=== PATIENT | female | born 1940 | race Caucasian/White ===

== ENCOUNTER 2019-10-16 08:50 | Outpatient (CLI) | payer MEDICARE, SELFPAY ==
[2019-10-16 09:22] LABS: Hemoglobin 13.4 g/dL (12.0-15.0); Mean Corpuscular HGB Conc 31.9 g/dl (32-36); Mean Corpuscular Hemoglobin 27.6 pg (26-34); Mean Corpuscular Volume 86.6 fl (80-100); Mean Platelet Volume 10.7 fl (7.4-10.4); Platelet Count Result 185 k/mm3 (150-375); Red Blood Count 4.85 M/mm3 (4.2-5.4); Red Cell Distribution Width 13.1 % (11.5-14.5); White Blood Count 6.2 K/mm3 (4.5-10.0)
[2019-10-16 09:27] LABS: Hemoglobin A1C 6.2 % (<5.7)
[2019-10-16 09:31] LABS: Alanine Aminotransferase 18 U/L (4-35); Albumin Level 4.3 g/dL (3.5-5.1); Alkaline Phosphatase 70 U/L (38-126); Anion Gap 10.6 mmol/L (7-16); Aspartate Amino Transferase 21 U/L (14-36); Bilirubin,Total 0.5 mg/dL (0.2-1.3); Blood Urea Nitrogen 18 mg/dL (7-17); Calcium 9.3 mg/dL (8.4-10.2); Carbon Dioxide 30 mmol/L (22-30); Chloride 100 mmol/L (98-107); Cholesterol 149 mg/dL (0-200); Estimated Glomerular Filt Rate > 60; Glucose 137 mg/dL (65-105); HDL Direct 48 mg/dL; Potassium 4.6 mmol/L (3.4-5.0); Sodium 136 mmol/L (137-145); Triglycerides 167 mg/dL (<150)
[2019-10-16 09:36] LABS: Add Urine Microscopic? YES; Appearance Urine Clear (Clear); Bacteria Urine Trace /hpf; Bilirubin Urine Negative (Negative); Blood Urine Negative (Negative); Color Urine Yellow (Yellow); Glucose Urine UA Negative (Negative); Ketones Urine Negative (Negative); Leukocyte Esterase Ur 2+ LEU/UL (NEGATIVE); Nitrate Urine Negative (Negative); Protein Urine Negative (Negative); RBC Urine 0-2 /hpf (0-2); Specific Grav Ur 1.013 (1.001-1.035); Squamous Epithelial Cell Urine Rare /hpf (Few); Urobilinogen Urine Negative mg/dL (<2.0); WBC Urine 21-30 /hpf (0-3)
[2019-10-16 09:42] LABS: LDL Cholesterol Direct 74 mg/dL
[2019-10-16 09:59] LABS: Thyroid Stimulating Hormone 0.158 uIU/mL (0.465-4.680)
[2019-10-16 10:01] LABS: Creatinine Urine 67.3 mg/dL
[2019-10-16 10:09] LABS: MALB Creatinine Ratio < 8.9 mg/g (0-30); Microalbumin Urine Random < 6.0 mg/L (0-16.7)
== END 2019-10-16 08:51 | disposition home or self-care (01) ==
PROVIDERS: PCP Family Medicine; Visit Provider Family Medicine
DX: E11.9 Type 2 diabetes mellitus without complications (principal); E78.2 Mixed hyperlipidemia; E03.9 Hypothyroidism, unspecified; I10 Essential (primary) hypertension
CPT/HCPCS: 36415; 80053; 80061; 81001; 82043; 83036; 84443; 85027

== ENCOUNTER 2019-10-25 10:47 | Outpatient (CLI) | payer MEDICARE, SELFPAY ==
--- NOTE | ~2019-10-25 | MM_ITS ---
EXAMINATION: MM screening vic BI w deb HISTORY: Screening TECHNIQUE: Craniocaudal and mediolateral oblique 3-D tomosynthesis images were obtained and synthetic 2-D images were generated. CAD analysis was submitted and interpreted. COMPARISON: Comparison to multiple prior studies sequentially, with oldest reviewed study dated 01/13. BREAST PARENCHYMAL COMPOSITION: There are scattered areas of fibroglandular density. FINDINGS: There is no evidence of suspicious mass, calcification, or architectural distortion to sugg est malignancy in either breast. There has been no suspicious interval change. IMPRESSION: 1. No mammographic evidence of malignancy. 2. Recommend routine screening mammography in one year. BI-RADS Category 1: Negative Reviewed, dictated and finalized at location A.
== END 2019-10-25 10:48 | disposition home or self-care (01) ==
LOC: ANHIMG 10:53
PROVIDERS: PCP Family Medicine; Visit Provider Family Medicine
DX: Z12.31 Encounter for screening mammogram for malignant neoplasm of breast (principal)
CPT/HCPCS: 77063; 77067

== ENCOUNTER 2020-02-23 12:16 | Outpatient (CLI) | payer MEDICARE, SELFPAY ==
[2020-02-23 12:56] LABS: Alanine Aminotransferase 21 U/L (4-35); Albumin Level 4.1 g/dL (3.5-5.1); Alkaline Phosphatase 65 U/L (38-126); Anion Gap 5 mmol/L (8-16); Aspartate Amino Transferase 27 U/L (14-36); Bilirubin,Total 0.6 mg/dL (0.2-1.3); Blood Urea Nitrogen 14 mg/dL (7-17); Calcium 9.3 mg/dL (8.4-10.2); Carbon Dioxide 33 mmol/L (22-30); Chloride 99 mmol/L (98-107); Estimated Glomerular Filt Rate > 60; Glucose 131 mg/dL (65-105); Hemoglobin A1C 6.2 % (<5.7); Potassium 4.3 mmol/L (3.4-5.0); Sodium 137 mmol/L (137-145)
[2020-02-23 13:28] LABS: Thyroid Stimulating Hormone 0.113 uIU/mL (0.465-4.680)
== END 2020-02-23 12:17 | disposition home or self-care (01) ==
PROVIDERS: PCP Family Medicine; Visit Provider Family Medicine
DX: E03.9 Hypothyroidism, unspecified (principal); E11.9 Type 2 diabetes mellitus without complications
CPT/HCPCS: 36415; 80053; 83036; 84443

== ENCOUNTER 2020-07-15 10:22 | Outpatient (CLI) | payer MEDICARE, SELFPAY ==
[2020-07-15 11:25] LABS: Hemoglobin A1C 6.7 % (<5.7)
[2020-07-15 11:27] LABS: Alanine Aminotransferase 17 U/L (4-35); Albumin Level 4.3 g/dL (3.5-5.1); Alkaline Phosphatase 57 U/L (38-126); Anion Gap 5 mmol/L (8-16); Aspartate Amino Transferase 20 U/L (14-36); Bilirubin,Total 0.5 mg/dL (0.2-1.3); Blood Urea Nitrogen 16 mg/dL (7-17); Calcium 9.1 mg/dL (8.4-10.2); Carbon Dioxide 30 mmol/L (22-30); Chloride 104 mmol/L (98-107); Cholesterol 126 mg/dL (0-200); Estimated Glomerular Filt Rate > 60; Glucose 144 mg/dL (65-105); HDL Direct 45 mg/dL; Potassium 4.4 mmol/L (3.4-5.0); Sodium 139 mmol/L (137-145); Triglycerides 82 mg/dL (<150)
[2020-07-15 11:38] LABS: LDL Cholesterol Direct 66 mg/dL
[2020-07-15 11:56] LABS: Thyroid Stimulating Hormone 0.234 uIU/mL (0.465-4.680)
== END 2020-07-15 10:23 | disposition home or self-care (01) ==
LOC: ANHLAB 10:28
PROVIDERS: PCP Family Medicine; Visit Provider Family Medicine
DX: E03.9 Hypothyroidism, unspecified (principal); E78.2 Mixed hyperlipidemia
CPT/HCPCS: 36415; 80053; 80061; 83036; 84443

== ENCOUNTER → 2020-07-19 12:07 | Outpatient (CLI) | payer MEDICARE, SELFPAY ==
--- NOTE | ~2020-07-19 | XR_ITS ---
EXAMINATION: XR knee RT 2V DATE: 07/19/2020 13:34 INDICATION: Right knee pain and weakness TECHNIQUE: Weight bearing anteroposterior and lateral views of the right knee were obtained. COMPARISON: 05/02/2013 FINDINGS: Bone alignment is normal. No fracture. Interval progression of now moderate joint space narrowing in the medial compartment with moderate size marginal osteophytes. Mild to moderate joint space narrowin g in the patellofemoral compartment also with moderate size marginal osteophytes. Small marginal oste ophytes and relatively preserved joint space and the lateral compartment. Soft tissues are unremarkab le. No right knee joint effusion. IMPRESSION: 1. Moderate severity medial compartment predominant tricompartmental osteoarthritis at the right knee . Reviewed, dictated and finalized at location A. IMPRESSION: 1. Moderate severity medial compartment predominant tricompartmental osteoarthr itis at the right knee.
== END ==
PROVIDERS: PCP Family Medicine; Visit Provider Family Medicine
DX: M17.11 Unilateral primary osteoarthritis, right knee (principal)
CPT/HCPCS: 73560

== ENCOUNTER 2020-09-13 10:42 | Outpatient (RCR) | payer MEDICARE, SELFPAY ==
--- NOTE | 2020-09-13 12:03 | PTOPEVAL ---
Thank you for referring Kylah Espana to [facility].? The patient is scheduled to be seen for therapy? ____x/week for ___ weeks. Please review, sign, date and return this plan of care VIN. I agree with and certify that the following plan of care is medically necessary. Referring Physician Date Admitting Provider: Attending Provider: SHARIF Rubio Referring Provider: *PT Outpatient Evaluation Start: 09/13/20 10:50 Freq: Status: Active Protocol: Document 09/13/20 10:50 ACR (Rec: 09/13/20 12:02 ACR [id number]) Therapy Assessment Status Assessment Status Assessment Status Evaluation Evaluation Information Problem Diagnosis R knee OA Subjective Information Patient states that her knee Query Text:As Reported By Patient/ is bothering her. She had Family surgery on it in 2014 where she underwent a menisectomy. She states everything was fine after that, but in the past year her knee feels like it is going to give out on her. Patient states that in the past year she has had one fall . Patient states that stairs, walking/standing for a period of time, getting in and out of her car, and getting out of a chair are difficult for her. She also has to be extremely careful on uneven terrain. The patient has a trip planned in October and is hoping she can make it through the whole thing. Prior Level of Function Activity Level (Last 3 Months) Occupation retired Hand Dominance Right Activity of Daily Living Ability Independent Indoor/Home Mobility Independent Community Mobility Independent Stairs Ability Independent Functional Cognition (Planning, Shopping Independent , Taking Medications) Cooking Yes Cleaning Yes Laundry Yes Shopping Yes Driving Yes Pain Assessment Timing of Pain Assessment Timing of Pain Assessment Assessment Pain Scale Pain Scale Used Numeric (1 - 10) Self Report Pain Assessment Right Knee(s) Reported Pain Level 7 Lowest Pain Intensity 5 Greatest Pain Intensity 7 Pain Score Pain Score
--- NOTE | 2020-10-28 12:51 | PTOPEVAL ---
Thank you for referring Kylah Espana to [facility].? The patient is scheduled to be seen for therapy? ____x/week for ___ weeks. Please review, sign, date and return this plan of care VIN. I agree with and certify that the following plan of care is medically necessary. Referring Physician Date Admitting Provider: Attending Provider: SHARIF Rubio Referring Provider: *PT Outpatient Evaluation Start: 09/13/20 10:50 Freq: Status: Active Protocol: Document 10/28/20 11:11 ACR (Rec: 10/28/20 12:02 ACR [id number]) Therapy Assessment Status Assessment Status Assessment Status Progress Evaluation Information Problem Diagnosis R knee OA Onset 09/11/20 Subjective Information Patient states that she was Query Text:As Reported By Patient/ [place] and Family she had some difficulty because of all the walking. She states that the walking the hills were the worst because her knee was really bothering her. She states that she was careful and took her time walking around. She states that she missed therapy because she wasn't getting the exercise that targets her knee. Pain Assessment Timing of Pain Assessment Timing of Pain Assessment Assessment Pain Scale Pain Scale Used Numeric (1 - 10) Self Report Pain Assessment Right Knee(s) Reported Pain Level 7 Lowest Pain Intensity 5 Greatest Pain Intensity 8 Pain Score Pain Score 7: Self Report Interventions Used Interventions Used By Clinicians Activity or ADL's,Exercise Lower Extremity Range of Motion Knee Range of Motion Right Knee Flexion Range of Motion - Active 117 Knee Extension Range of Motion - Active 3 Query Text: Left Knee Flexion Range of Motion - Active 130 Knee Extension Range of Motion - Active 0 Query Text: Lower Extremity Muscle Strength Testing Knee Strength Right Knee Flexion Strength 5 Normal Knee Extension Strength 4+ Good + Left Knee Flexion Strength 4 Good Knee Extension Strength 4+ Good + Gait Assessment Gait Assessment Additional Ambulation Comments Patient ambulates into the clinic with decreased knee flexion on the R and slight compensated trendelenberg on the R. General Exercise General Exercises Exe
--- NOTE | 2020-11-11 11:53 | PTOPEVAL ---
Thank you for referring Kylah Espana to [facility].? The patient is scheduled to be seen for therapy? ____x/week for ___ weeks. Please review, sign, date and return this plan of care VIN. I agree with and certify that the following plan of care is medically necessary. Referring Physician Date Admitting Provider: Attending Provider: SHARIF Rubio Referring Provider: *PT Outpatient Evaluation Start: 09/13/20 10:50 Freq: Status: Active Protocol: Document 11/11/20 10:55 ACR (Rec: 11/11/20 11:53 ACR [id number]) Therapy Assessment Status Assessment Status Assessment Status Discharge Evaluation Information Problem Diagnosis R knee OA Onset 09/11/20 Subjective Information Patient states that she has Query Text:As Reported By Patient/ been doing great and has no Family complaints. She doesn't have any difficulty with anything these days and believes she is ready to be done. Pain Assessment Timing of Pain Assessment Timing of Pain Assessment Assessment Pain Scale Pain Scale Used Numeric (1 - 10) Self Report Pain Assessment Right Knee(s) Reported Pain Level 4 Greatest Pain Intensity 4 Pain Score Pain Score 4: Self Report Interventions Used Interventions Used By Clinicians Activity or ADL's,Exercise Lower Extremity Range of Motion Knee Range of Motion Right Knee Flexion Range of Motion - Active 125 Knee Extension Range of Motion - Active 3 Query Text: Lower Extremity Muscle Strength Testing Knee Strength Right Knee Flexion Strength 5 Normal Knee Extension Strength 5 Normal Left Knee Flexion Strength 5 Normal Knee Extension Strength 5 Normal Gait Assessment Gait Assessment Additional Ambulation Comments Patient ambulates for 10 minutes with proper heal strike, no antalgia, and slightly reduced hill after 8 minutes. General Exercise General Exercises Exercise Description - reeval x 5 minutes Query Text:Record Sets, Reps, - nustep level 5, 10 minutes Resistance, and Position - heel/toe raises x 30 - standing hip abduction x 30 B green loop - standing hip extension x 30 B green loop - mini squats x 20 - step-ups 8in x20 R fwd - foam balance NBOS 2 minutes - foam tandem 2 minutes
== END 2020-11-11 13:28 | disposition home or self-care (01) ==
LOC: CHSPT 10:42
PROVIDERS: Visit Provider Physician Assistant Surgical
DX: M17.11 Unilateral primary osteoarthritis, right knee (principal)
CPT/HCPCS: 97110; 97161; 97530

== ENCOUNTER 2020-10-28 12:38 | Outpatient (CLI) | payer MEDICARE, SELFPAY ==
[2020-10-28 14:10] LABS: Hematocrit 43.2 % (37.0-47.0); Mean Corpuscular HGB Conc 32.4 g/dl (32-36); Mean Corpuscular Hemoglobin 27.6 pg (26-34); Mean Corpuscular Volume 85.2 fl (80-100); Mean Platelet Volume 10.5 fl (7.4-10.4); Platelet Count Result 196 k/mm3 (150-375); Red Blood Count 5.07 M/mm3 (4.2-5.4); Red Cell Distribution Width 13.2 % (11.5-14.5); White Blood Count 6.6 K/mm3 (4.5-10.0)
[2020-10-28 14:16] LABS: Add Urine Microscopic? YES; Appearance Urine Clear (Clear); Bilirubin Urine Negative (Negative); Blood Urine Negative (Negative); Color Urine Straw (Yellow); Glucose Urine UA Negative (Negative); Ketones Urine Negative (Negative); Leukocyte Esterase Ur 3+ LEU/UL (NEGATIVE); Mucus Urine Rare /lpf; Nitrate Urine Negative (Negative); Protein Urine Negative (Negative); RBC Urine 0-2 /hpf (0-2); Specific Grav Ur 1.006 (1.001-1.035); Squamous Epithelial Cell Urine Rare /hpf (Few); Urobilinogen Urine Negative mg/dL (<2.0)
[2020-10-28 14:22] LABS: Alanine Aminotransferase 27 U/L (4-35); Albumin Level 4.3 g/dL (3.5-5.1); Alkaline Phosphatase 69 U/L (38-126); Anion Gap 4 mmol/L (8-16); Aspartate Amino Transferase 25 U/L (14-36); Bilirubin,Total 0.6 mg/dL (0.2-1.3); Blood Urea Nitrogen 18 mg/dL (7-17); Calcium 8.9 mg/dL (8.4-10.2); Carbon Dioxide 27 mmol/L (22-30); Chloride 102 mmol/L (98-107); Cholesterol 162 mg/dL (0-200); Estimated Glomerular Filt Rate > 60; Glucose 112 mg/dL (65-110); HDL Direct 49 mg/dL; Potassium 3.9 mmol/L (3.4-5.0); Sodium 133 mmol/L (137-145); Triglycerides 156 mg/dL (<150)
[2020-10-28 14:33] LABS: LDL Cholesterol Direct 82 mg/dL
[2020-10-28 16:50] LABS: Creatinine Urine 33.2 mg/dL
[2020-10-28 16:53] LABS: MALB Creatinine Ratio 18.4 mg/g (0-30); Microalbumin Urine Random 6.1 mg/L (0-16.7)
== END 2020-10-28 12:39 | disposition home or self-care (01) ==
PROVIDERS: PCP Family Medicine; Visit Provider Family Medicine
DX: E03.9 Hypothyroidism, unspecified (principal); E11.9 Type 2 diabetes mellitus without complications; E78.2 Mixed hyperlipidemia; I10 Essential (primary) hypertension; M25.561 Pain in right knee
CPT/HCPCS: 36415; 80053; 80061; 81001; 82043; 83036; 84443; 85027

== ENCOUNTER 2021-07-06 18:23 | Emergency (ER) | payer MEDICARE, SELFPAY ==
[2021-07-06 18:25] VITALS: BP 155/77; PULSE 73; RESP 20; TEMP 36.2; O2SAT 97
[2021-07-06] MEDS: methylPREDNISolone SOD SUCC 125 MG VIAL IM (18:41)
[2021-07-06] MEDS: diphenhydrAMINE HCl CAP 25 MG CAPSULE 50 MG PO (18:50)
[2021-07-06 19:03] VITALS: BP 155/77; PULSE 73; RESP 20; TEMP 36.7; O2SAT 97
--- NOTE | 2021-07-06 19:03 | ED.SKABFB ---
HPI - Skin/Abscess/Foreign Bdy General Chief complaint: Skin/Abscess/Foreign Body Stated complaint: all over rash Time Seen by Provider: 07/06/21 18:25 Source: patient and family Mode of arrival: ambulatory Limitations: no limitations History of Present Illness complaint: rash Onset (ago): day(s) (1) Location: generalized Severity: moderate Quality: other (pain-free.) Relieving factors: medication Exacerbating factors: none Associated symptoms: denies other symptoms Treatments prior to arrival: OTC topical medication Related Data Home Medications Medication Instructions Recorded Confirmed aspirin 81 mg tablet,delayed 81 mg PO DAILY 09/11/20 07/06/21 release Allergies Allergy/AdvReac Type Severity Reaction Status Date / Time No Known Allergies Allergy Verified 12/05/20 11:06 Review of Systems Review of Systems: All systems reviewed & are unremarkable except as noted in HPI and below PMFSH Past Medical History Medical History Allergic reaction Anxiety Urticaria Surgical History Surgical History Delivery by section H/O: hysterectomy (~1985) History of appendectomy History of meniscectomy of right knee (~2014) S/P adenoidectomy Family History Family History Mother Family history of cardiovascular disease Father Family history of lung cancer Daughter Cancer Other Carcinoma of colon Social History Social History Smoking status: Never smoker Second hand tobacco smoke exposure: No Alcohol intake: never Substance use: never Substance use type: does not use Gender identity (if verbalized by the patient): Female Sexual Orientation (if Verbalized by the Patient): Straight or Heterosexual Exam Const: General: healthy appearing, no acute distress and alert Orientation/consciousness: patient oriented x3 Limitations: no limitations HENMT: Head: normal to inspection Ears: external ears normal, TM's normal bilaterally and EAC's normal General nose exam: Normal external nose present and Normal nares present Face and sinus: normal facial exam and sinuses nontender Mouth: Yes moist mucous membranes Eyes: Conjunctivae: conjunctivae normal Pupils: Equal, round and reactive pupils present EOM: EOMs intact bilaterally Neck: Neck: normal visual inspection Chest: Chest palpation & inspection: normal inspection of the chest Resp: Effort & Inspection: normal respiratory effort Auscultation: clear to auscultation bilaterally Cardio: Rate: regular rate Rhythm: regular rhythm GI: GI Palp: Yes Soft to palpation and No Tenderness to palpation present (GI) : General: Yes bladder normal to palpation and Yes no CVA tenderness Back/Spine/Pelvis: Back: no CVA tenderness Skin: General skin exam: normal color Other: Generalized urticariae. Neuro: General: patient oriented x3, moves all extremities, no meningeal signs, no focal motor deficits and CN's II-XI intact bilaterally Extrem: General: no pedal edema Psych: Appearance: grossly normal and well kempt Mental Status: mental status grossly normal Affect: normal affect Attitude: cooperative Thought content: Yes Normal thought content present Course Course Emergency Course: Pt was stable in the ED. Urticariae stable. Reevaluation(s) Reevaluation #1: VSS Date: 07/06/21 Time: 18:41 Vital Signs Vital signs: Vital Signs Temperature 36.2 C L 07/06/21 18:25 Pulse Rate 73 07/06/21 18:25 Respiratory Rate 20 07/06/21 18:25 Blood Pressure 155/77 H 07/06/21 18:25 Pulse Oximetry 97 07/06/21 18:25 Temperature 36.7 C 07/06/21 19:03 Pulse Rate 73 07/06/21 19:03 Respiratory Rate 20 07/06/21 19:03 Blood Pressure 155/77 H 07/06/21 19:03 Pulse Oximetry 97 07/06/21 19:03
== END 2021-07-06 19:22 | disposition home or self-care (01) ==
PROVIDERS: Emergency Provider Emergency Medicine; PCP Family Medicine
DX: L50.9 Urticaria, unspecified (principal); T78.40XA Allergy, unspecified, initial encounter
CPT/HCPCS: 73140; 96372; 99283; A9270; J2930

== ENCOUNTER → 2021-08-14 12:23 | Outpatient (CLI) | payer MEDICARE, SELFPAY ==
--- NOTE | ~2021-08-14 | XR_ITS ---
XR knee LT 3V 08/14/2021 12:49 Indication: Left knee pain Procedure: 3 views left knee Comparison: No prior studies for comparison. Findings: There is mild-moderate osteoarthritis of the left knee. No fracture or traumatic malalignme nt. There is anatomic alignment. No significant joint effusion. No foreign bodies. Impression: 1: Mild-moderate osteoarthritis of the left knee. Reviewed, dictated and finalized at location A. Impression: 1: Mild-moderate osteoarthritis of the left knee.
== END ==
PROVIDERS: PCP Family Medicine; Visit Provider Family Medicine
DX: M17.12 Unilateral primary osteoarthritis, left knee (principal)
CPT/HCPCS: 73562

== ENCOUNTER 2021-12-19 12:39 | Outpatient (CLI) | payer MEDICARE, SELFPAY ==
--- NOTE | ~2021-12-19 | CT_ITS ---
EXAMINATION: CT LE LT wo con DATE: 12/19/2021 13:10 INDICATION: Bilateral primary osteoarthritis of the knee. Preoperative evaluation TECHNIQUE: High resolution computed tomography (CT) of the left lower limb from the hip through the a nkle was performed without intravenous contrast. Additional sagittal and coronal reconstructions were performed. Automated exposure control and iterative reconstruction technique were employed. The dose -length product was 1494.56 mGy-cm. COMPARISON: Radiographs dated 10/01/2021 FINDINGS: Normal alignment of the left lower limb. No fracture. Couple small heterotopic ossicles along the lola p deltoid ligament at the ankle consistent with sequela of chronic sprain. Mild to moderate osteoarth ritis at the left hip with anterior and posterior predominant nonuniform joint space narrowing and sm all to moderate-sized marginal osteophytes along the acetabulum and femoral head. Osteoarthritis at t he left knee with and moderate size marginal osteophytes in all 3 compartments and at least moderate joint space narrowing the medial compartment although severity of joint space narrowing can be undere stimated on nonweightbearing imaging. Moderate-sized left knee joint effusion. Additional mild osteoa rthritis at the left ankle, subtalar and talonavicular joints. Moderate-sized Achilles calcaneal spur . The uterus is not identified and has likely been surgically resected. Visualized pelvis otherwise u nremarkable. No pathologically enlarged lymphadenopathy at the left groin are visualized left hemipel vis. IMPRESSION: 1. At least moderate severity medial compartment predominant osteoarthritis at the left knee with mod erate-sized knee joint effusion. 2. Additional polyarticular osteoarthritis, moderate at the left hip and mild at the left ankle and h indfoot. Reviewed, dictated and finalized at location A. IMPRESSION: 1. At least moderate severity medial compartment predominant osteoarthritis at the left knee with moderate-sized knee joint effusion. 2. Additional polyarticular osteoarthritis, moderate at the left hip and mild a t the left ankle and hindfoot.
[2021-12-19 13:31] LABS: Hematocrit 40.2 % (37.0-47.0); Hemoglobin 12.8 g/dL (12.0-15.0)
[2021-12-19 13:40] LABS: Albumin Level 4.2 g/dL (3.5-5.1); Estimated Glomerular Filt Rate > 60; Glucose 132 mg/dL (65-110)
[2021-12-19 14:03] LABS: Hemoglobin A1C 6.9 % (<5.7)
== END 2021-12-19 12:40 | disposition home or self-care (01) ==
PROVIDERS: PCP Family Medicine; Visit Provider Orthopaedic Surgery
DX: E11.9 Type 2 diabetes mellitus without complications (principal); E78.2 Mixed hyperlipidemia; M17.0 Bilateral primary osteoarthritis of knee; M16.12 Unilateral primary osteoarthritis, left hip; M19.072 Primary osteoarthritis, left ankle and foot
CPT/HCPCS: 36415; 73700; 82040; 82565; 82947; 83036; 85014; 85018

== ENCOUNTER 2021-12-26 13:04 | Outpatient (CLI) | payer MEDICARE, SELFPAY ==
--- NOTE | 2021-12-26 13:16 | ECG_ITS ---
Measurements Intervals [place] Rate: 65 P: 54 [place]: 182 QRS: 42 QRSD: 91 T: 45 QT: 383 QTc: 400 Interpretive Statements SINUS RHYTHM NONSPECIFIC T-WAVE FLATTENING BORDERLINE ECG NO PREVIOUS ECG AVAILABLE FOR COMPARISON Electronically Signed On 12-26-2021 15:45:54 CDT by Silas Baca M.D.
== END 2021-12-26 13:05 | disposition home or self-care (01) ==
PROVIDERS: PCP Family Medicine; Visit Provider Orthopaedic Surgery
DX: I10 Essential (primary) hypertension (principal); R94.31 Abnormal electrocardiogram [ECG] [EKG]
CPT/HCPCS: 93005

== ENCOUNTER 2022-02-18 11:38 | Outpatient (CLI) | payer MEDICARE, SELFPAY ==
[2022-02-18 13:18] LABS: Albumin Level 4.6 g/dL (3.5-5.1); Basophils Absolute Auto 0.1 K/mm3 (0.0-0.1); Basophils Percent Auto 0.6 % (0.2-1.2); Eosinophils Absolute Auto 0.5 K/mm3 (0-0.3); Eosinophils Percent Auto 5.1 % (0-4.4); Hematocrit 43.6 % (37.0-47.0); Immature Granulocyte Absolute 0.04 K/mm3 (0.00-0.031); Immature Granulocyte Percent A 0.4 % (0-0.5); Lymphocytes Absolute Auto 3.07 K/mm3 (0.9-3.2); Lymphocytes Percent Auto 29.7 % (18.3-44.2); Mean Corpuscular HGB Conc 32.1 g/dl (32-36); Mean Corpuscular Hemoglobin 27.7 pg (26-34); Mean Corpuscular Volume 86.2 fl (80-100); Mean Platelet Volume 10.4 fl (7.4-10.4); Monocytes Absolute Auto 0.7 K/mm3 (0.1-0.6); Monocytes Percent Auto 6.3 % (2.6-8.5); Neutrophils Percent Auto 57.9 % (45.5-73.1); Platelet Count Result 195 k/mm3 (150-375); Red Blood Count 5.06 M/mm3 (4.2-5.4); Red Cell Distribution Width 12.7 % (11.5-14.5); White Blood Count 10.3 K/mm3 (4.5-10.0)
[2022-02-18 13:21] LABS: Anion Gap 7 mmol/L (8-16); Blood Urea Nitrogen 17 mg/dL (7-17); Calcium 9.1 mg/dL (8.4-10.2); Carbon Dioxide 29 mmol/L (22-30); Chloride 99 mmol/L (98-107); Estimated Glomerular Filt Rate > 60; Glucose 102 mg/dL (65-110); Potassium 4.4 mmol/L (3.4-5.0); Sodium 135 mmol/L (137-145)
[2022-02-18 13:24] LABS: Urine Cotinine NEGATIVE
== END 2022-02-18 11:39 | disposition home or self-care (01) ==
PROVIDERS: Anesthesiology; PCP Family Medicine; Visit Provider Orthopaedic Surgery
DX: M17.12 Unilateral primary osteoarthritis, left knee (principal); E11.9 Type 2 diabetes mellitus without complications; Z01.818 Encounter for other preprocedural examination
CPT/HCPCS: 36415; 80048; 80307; 82040; 85025; 87081

== ENCOUNTER 2022-03-03 10:33 | Outpatient (CLI) | payer MEDICARE, SELFPAY ==
[2022-03-03 11:08] LABS: Alanine Aminotransferase 19 U/L (6-35); Albumin Level 4.5 g/dL (3.5-5.1); Alkaline Phosphatase 58 U/L (38-126); Anion Gap 7 mmol/L (8-16); Aspartate Amino Transferase 20 U/L (14-36); Bilirubin,Total 0.5 mg/dL (0.2-1.3); Blood Urea Nitrogen 14 mg/dL (7-17); Calcium 8.9 mg/dL (8.4-10.2); Carbon Dioxide 29 mmol/L (22-30); Chloride 104 mmol/L (98-107); Estimated Glomerular Filt Rate > 60; Glucose 134 mg/dL (65-110); Potassium 4.5 mmol/L (3.4-5.0); Sodium 140 mmol/L (137-145)
[2022-03-03 11:18] LABS: Hemoglobin A1C 6.8 % (<5.7)
[2022-03-03 11:26] LABS: Basophils Absolute Auto 0.1 K/mm3 (0.0-0.1); Basophils Percent Auto 0.8 % (0.2-1.2); Eosinophils Absolute Auto 0.5 K/mm3 (0-0.3); Eosinophils Percent Auto 6.9 % (0-4.4); Hematocrit 43.6 % (37.0-47.0); Immature Granulocyte Absolute 0.01 K/mm3 (0.00-0.031); Immature Granulocyte Percent A 0.1 % (0-0.5); Lymphocytes Absolute Auto 2.59 K/mm3 (0.9-3.2); Lymphocytes Percent Auto 35.8 % (18.3-44.2); Mean Corpuscular HGB Conc 32.1 g/dl (32-36); Mean Corpuscular Hemoglobin 27.8 pg (26-34); Mean Corpuscular Volume 86.5 fl (80-100); Mean Platelet Volume 11.1 fl (7.4-10.4); Monocytes Absolute Auto 0.4 K/mm3 (0.1-0.6); Monocytes Percent Auto 5.7 % (2.6-8.5); Neutrophils Absolute Auto 3.7 K/mm3 (1.3-6.7); Neutrophils Percent Auto 50.7 % (45.5-73.1); Platelet Count Result 192 k/mm3 (150-375); Red Blood Count 5.04 M/mm3 (4.2-5.4); Red Cell Distribution Width 12.9 % (11.5-14.5); White Blood Count 7.2 K/mm3 (4.5-10.0)
== END 2022-03-03 10:34 | disposition home or self-care (01) ==
PROVIDERS: PCP Family Medicine; Visit Provider Family Medicine
DX: E11.9 Type 2 diabetes mellitus without complications (principal); D72.829 Elevated white blood cell count, unspecified
CPT/HCPCS: 36415; 80053; 83036; 85025

== ENCOUNTER 2022-03-17 08:02 | Day surgery (SDC) | payer MEDICARE, SELFPAY ==
--- NOTE | 2022-02-18 11:14 | PC.NURSE ---
Report to the Outpatient Waiting Room, entrance under the green pavilion located off [facility], at time _8:30AM on date __03/17/22 . Planned Procedure Time: __10:30AM . Time changes happen often and if your time is changed the preop area will call you the afternoon before. - You and your visitor will be asked to self-screen and do not enter if you have any COVID symptoms. - Only one visitor is requested with a max of two and NO children visitors are allowed at this time. - The patient visitor may be requested to leave or wait in car when not with patient due to distancing restrictions. - A mask is optional within the hospital. Patients may have clear liquids (water, carbonated beverages, clear teas, apple juice) until 3 hours prior to surgery with a maximum of 20 ounces. - No food from midnight until time of surgery. Take the following medications with a SIP of water the morning of surgery: ___PAROXETINE Medications to discontinue per physician __HOLD ASPIRIN AND NSAIDS(ALEVE) 7 DAYS PRE-OP, HOLD PER DR RUIZ.- 03/10/22. HOLD ALL VITAMINS/SUPPLEMENTS 3 DAYS PREOP- LAST DOSE -03/13/22 Please no make-up, nail japanese, hairspray, perfume, deodorant, or body powder the day of surgery. No jewelry (including any body piercings) or valuables the day of surgery, leave them at home. Please take a shower or bath the night before, or the morning of, surgery with an antibacterial soap. Wear comfortable, loose fitting clothing. Children are encouraged to wear pajamas. - Jewelry must be removed prior to entering the operating room. Rings and piercings that are not removed may be cut off. - The hospital will not accept responsibility for valuables. - Please leave all valuables, including medications, at home the day of surgery. If you are going home after surgery, a licensed package delivery driver must drive you home. - NO public transportation without another adult if you receive anesthesia. - We recommend that an adult stay with you for 24 hours following discharge. - We also recommend that you do not drive, make important decision, drink alcoholic beverages, or take any drugs that were not prescribed by your health care provider for at least 24 hours after your discharge time. Follow any additional instructions given to you from your surgeon. If you or anyone in your household have experienced Covid symptoms in the past week, please notify your surgeon or the nurse liaison at the phone number below for possible testing. Telephone instructions given to __PATIENT and asked if any additional questions and then verbalized understanding. Patient advised to call surgeon office or pre surgery nurse liaison [phone] if any additional questions.
[2022-02-18 11:54] VITALS: BP 148/86; PULSE 70; RESP 16; TEMP 36.4; O2SAT 98; BMI 29.9
[2022-03-17] VITALS (17 sets, daily range): BP systolic 118–168; BP diastolic 52–95; PULSE 71–90; RESP 13–20; TEMP 36.1–36.8; O2SAT 89–98
--- NOTE | ~2022-03-17 | XR_ITS ---
EXAMINATION: XR knee LT 2V DATE: 03/17/2022 13:07 INDICATION: Total left knee arthroplasty. Postop. TECHNIQUE: 2 views of left knee were obtained. COMPARISON: Left knee radiograph 08/14/2021 FINDINGS: There is a total left knee arthroplasty in near-anatomic alignment. No fracture. There is g as in the knee joint and soft tissues, consistent with recent surgery. IMPRESSION: 1. Total left knee arthroplasty in near-anatomic alignment. Reviewed, dictated and finalized at location A. ITECTURE MANAGER
[2022-03-17] MEDS: ACETAMINOPHEN 500 MG TABLET 1000 MG PO (08:35)
[2022-03-17 08:54] LABS: Glucose Point of Care 134 mg/dl (65-105)
--- NOTE | 2022-03-17 09:04 | WPDANESEPPF ---
Anes - Initial Pre Proc Eval Procedure: Operation Date: 03/17/22 10:30 Proposed Procedures p Left Custom Total Knee Arthroplasty - Albert Martinez MD Date/Time: 03/17/22 09:04 Surgeon: Albert Martinez MD Pre Op Diagnosis: Prim O A Lt Knee Patient Data Age: 81 Gender: F Height: 1.63 m Weight: 79.2 kg Last Vital Signs Temp 36.4 C 02/18/22 11:54 Pulse 70 02/18/22 11:54 Resp 16 02/18/22 11:54 BP 148/86 H 02/18/22 11:54 Pulse Ox 98 02/18/22 11:54 O2 Del Method Room Air 02/18/22 11:54 Allergies Allergy/AdvReac Type Severity Reaction Status Date / Time No Known Allergies Allergy Verified 03/17/22 08:15 Home Medications Medication Instructions Recorded Confirmed Type blood sugar diagnostic (Contour #100 ea 10/27/19 03/02/22 Rx Next Test Strips) lancets #100 ea 06/17/20 03/02/22 Rx aspirin 81 mg tablet,delayed 81 mg PO DAILY 09/11/20 03/17/22 History release biotin 5,000 mcg-lutein 10 mg 1 tablet PO DAILY 02/18/22 03/17/22 History tablet (Biotin Plus) calcium carb-ergocalciferol (vit 1 tablet PO DAILY 02/18/22 03/17/22 History D2) 600 mg calcium-200 unit tablet cholecalciferol (vitamin D3) 125 125 mcg PO DAILY 02/18/22 03/17/22 History mcg (5,000 unit) capsule cyanocobalamin (vitamin B-12) 1,000 mcg PO DAILY 02/18/22 03/17/22 History 1,000 mcg capsule diphenhydramine HCl 25 mg capsule 50 mg PO HS 02/18/22 03/17/22 History (Benadryl) lisinopril 20 mg tablet 20 mg PO QAM 02/18/22 03/17/22 History lutein 20 mg capsule 20 mg PO DAILY 02/18/22 03/17/22 History metformin 500 mg tablet,extended 2,000 mg PO QACDINNER 02/18/22 03/17/22 History release 24 hr multivitamin 1 tablet PO DAILY 02/18/22 03/17/22 History naproxen sodium 220 mg capsule 220 mg PO HS 02/18/22 03/17/22 History (Aleve) paroxetine HCl 30 mg tablet 30 mg PO QAM 02/18/22 03/17/22 History simvastatin 40 mg tablet 40 mg PO QAM 02/18/22 03/17/22 History zinc 10 mg tablet 10 mg PO BID 02/18/22 03/17/22 History Laboratory Tests 03/17/22 08:45 POC Capillary Glucose 134 mg/dl H mg/dl (65-105) ECG: Date of Service: 12/26/21 Procedure(s): CA 12 lead EKG Accession Number(s): [id number] cc: ~ ? Measurements Intervals? [place]? Rate: ? 65 ? P:? 54 ND: ? 182? QRS:? 42 QRSD: ? 91 ? T:? 45 QT: ? 383? QTc:? 400? Interpretive Statements SINUS RHYTHM NONSPECIFIC T-WAVE FLATTENING BORDERLINE ECG NO PREVIOUS ECG AVAILABLE FOR COMPARISON Electronically Signed On 12-26-2021 15:45:54 CDT by Silas Baca M.D. Patient hx anesthesia problems: none Family hx anesthesia problems: none Results Review: All pre-operative results and documents have been reviewed as part of the pre-operative evaluation. [facility] Past Medical History Medical History (Updated 03/17/22 @ 09:05 by Claudio French MD) Allergic reaction Anxiety Essential (primary) hypertension Hypothyroidism MDD (major depressive disorder), recurrent episode Mixed hyperlipidemia Obesity Obstructive sleep apnea (adult) (pediatric) Type 2 diabetes mellitus without complications Urticaria Surgical History Surgical History Delivery by section H/O: hysterectomy (~1985) History of appendectomy History of meniscectomy of right knee (~2014) S/P adenoidectomy Family History Family History Mother Family history of cardiovascular disease Father Family history of lung cancer Daughter Cancer Other Carcinoma of colon Social History Social History Smoking
--- NOTE | 2022-03-17 09:10 | WPDANESPNB ---
Anes - Peripheral Nerve Block Date/Time: 03/17/22 09:10 I have discussed with the patient/family/POA the placement of a peripheral nerve block for post-operative pain management, including associated risks, benefits, complications, and side effects. Alternative methods of post-operative analgesia were detailed. Questions were solicited and answers provided to the satisfaction of the patient/family/POA. Time-Out: A pre-procedural Time-Out was completed immediately before starting the procedure and confirmed: Patient Identification, Site, Procedure, Patient Position and the Availability of Requisite Equipment. Clinical Indications: Acute post-operative pain management requested by the operative surgeon. Nerve Block Insertion Note Anes-nerve block: adductor canal Patient position: supine Skin prep: chlorhexidine Needle: 22 gauge, stimulating, insulated echogenic needle. Needle length: 80 mm Technique: ultrasound Technique comment: in plane Injectate: bupivacaine 0.25% with epi 5 mcg/ml (30cc) Observations: tolerated well Complications: none Procedure start time:: 935 Procedure end time:: 940
--- NOTE | 2022-03-17 09:13 | WPDHPUPDATE1 ---
History and Physical Update Update Date/Time: 03/17/22 09:13 History and Physical has been reviewed, including an updated exam of the patient. There are NO changes in the patient's condition. Risks, benefits, and alternatives have been discussed and questions answered. Patient agrees to proceed with procedure.
[2022-03-17] MEDS: TRANEXAMIC ACID 1,000MG/ISO100 1,000 MG/100 ML BAG 200 MG IVPB (09:28)
[2022-03-17] MEDS: ceFAZolin 2 GM/D5W 50 ML 2 GM/50 ML BAG IVPB ×2 (09:57→18:55)
[2022-03-17] MEDS: GENTAMICIN BONE CEMENT REFOBACIN 1 EACH TOPICAL (12:11)
[2022-03-17] MEDS: LACTATED RINGERS 1,000 ML 30 ML IV CONT (12:58)
[2022-03-17 13:23] LABS: Glucose Point of Care 188 mg/dl (65-105)
[2022-03-17] MEDS: fentaNYL CITRATE INJ (*CRX) 100 MCG/2 ML VIAL 25 MCG IV PUSH (13:23)
--- NOTE | 2022-03-17 13:32 | W.PM.PROC2 ---
Procedure Note - Detailed Date of Procedure 03/17/22 Pre-op Diagnosis Prim O A Lt Knee Post-op Diagnosis Same Procedure Performed Total knee arthroplasty, left. Surgeon Albert Martinez MD Senior Data Warehouse Developer Eulalia Mercado PA-C Anesthesia General and Regional (Subsartorial block.) Findings Good bone quality. Degenerative changes more advanced than noted radiographically. Lateral retinacular release. Description of Procedure Preoperative antibiotics were given. The limb was prepped and draped in the usual sterile fashion with a well-padded tourniquet high on the thigh. The limb was exsanguinated and the tourniquet inflated to 300 mmHg during exposure and cementation. A longitudinal incision was created just medial to the patella. A trivector approach to the knee was performed. Arthrotomy was taken down through the joint capsule. No significant releases were initially taken. The femur was exposed and the F1 jig was applied. The coring tool was used to remove the cartilage for the F2 jig to sit flush with the bone. The jig was pinned and the distal cut carefully taken. Caliper measurements confirmed appropriate bony resections according to the preoperative templated plan. The F4 cutting jig for the femur was applied, at the standard rotation. The AP and anterior chamfer cuts were taken. The F5 jig was applied and the posterior chamfer cuts were taken. The tibia was prepared using the T1 jig, after removing cartilage for the jig contact points. Proper alignment was checked with the alignment adi. The tibia was cut using the T1u guide. Gap balancing was performed. Gap measurements were taken and the knee was trialed. Excellent alignment and soft tissue balancing was confirmed. The posterior cruciate ligament was recessed along the proximal tibia. The patella was cut for resurfacing. Three lug holes were drilled. Meniscal remnants were removed. The trial components were assembled. Excellent range of motion and proper soft tissue balancing were confirmed throughout the full range of motion. Patellar tracking was excellent. The knee was copiously irrigated periodically throughout the procedure. The real implants were cemented into position. Excess cement was carefully removed. The wound was closed in layers with interrupted #1 Vicryl suture, 2-0 strata fix suture, 0 strata fix suture, 2-0 strata fix suture. Steri-Strips placed on the skin with the knee flexed. Sterile bulky dressing applied. The patient was brought to the recovery room in stable condition. There were no complications. Physician assistant surveyor, Eulalia Mercado PA-C, required for surgery; including patient positioning, draping, tissue retraction, maintaining instrument position, wound closure, and dressing placement. Implants Conformis Custom total knee arthroplasty. Cemented. PS insert 8mm insert. 32 mm oval patella. Estimated Blood Loss 100 Drains No Complications No immediate complications Condition Stable Disposition PACU [facility] Billing Surgery - Charge Forward: Surgery Billing
--- NOTE | 2022-03-17 13:50 | SUR.PHASEI ---
Patient meets PACU discharge criteria, unit bed unavailable at this time. Patient placed in extended recovery status.
[2022-03-17] MEDS: oxyCODONE HCL (*CRX) 5 MG TAB IR PO (14:32)
--- NOTE | 2022-03-17 15:33 | SUR.PHASEI ---
Report called to Cassandra Roles RN. Room being cleaned.
--- NOTE | 2022-03-17 15:54 | SUR.PHASEI ---
1545 pt placed on 2l nc, sat 89% prior to application
--- NOTE | 2022-03-17 18:16 | ADMGEN ---
This patient, Kylah Espana, was admitted to 3 [facility] Surg Room 310-01 at 1640. Patient/family oriented to hospital policies and general routines including ID bracelet, bed and alarms, visiting hours, pain management, procedures, bathroom and other care routines, personal items, smoking policy, room service/diet, and visiting hours. Information on how to activate the Rapid Response Team has been discussed. Patient/Family are encouraged to report perceived risks to care and to ask questions if they do not understand what they are told or what they should do.
[2022-03-17] MEDS: SENNA/DOCUSATE SODIUM TABLET 2 TAB PO (18:23)
[2022-03-17] MEDS: metFORMIN HCL XR 500 MG TAB.SR.24H 2000 MG PO (18:23)
[2022-03-17] MEDS: SODIUM CHLORIDE 0.9% IV 1,000 ML 125 ML IV CONT (18:26)
[2022-03-17] MEDS: oxyCODONE HCL (*CRX) 5 MG TAB IR 10 MG PO (18:48)
[2022-03-17] MEDS: SIMVASTATIN 20 MG TABLET 40 MG PO (20:36)
[2022-03-17] MEDS: FAMOTIDINE 20 MG TABLET PO (20:37)
[2022-03-18] MEDS: ceFAZolin 2 GM/D5W 50 ML 2 GM/50 ML BAG IVPB ×2 (01:40→08:59)
[2022-03-18 04:00] VITALS: BP 115/58; PULSE 73; RESP 16; TEMP 36.2; O2SAT 94
[2022-03-18] MEDS: oxyCODONE HCL (*CRX) 5 MG TAB IR PO ×2 (06:29→10:47)
[2022-03-18 06:35] LABS: Basophils Percent Auto 0.2 % (0.2-1.2); Hematocrit 35.2 % (37.0-47.0); Hemoglobin 10.9 g/dL (12.0-15.0); Immature Granulocyte Absolute 0.05 K/mm3 (0.00-0.031); Immature Granulocyte Percent A 0.4 % (0-0.5); Lymphocytes Absolute Auto 2.11 K/mm3 (0.9-3.2); Lymphocytes Percent Auto 17.5 % (18.3-44.2); Mean Corpuscular Hemoglobin 27.7 pg (26-34); Mean Corpuscular Volume 89.6 fl (80-100); Mean Platelet Volume 11.3 fl (7.4-10.4); Monocytes Absolute Auto 1.1 K/mm3 (0.1-0.6); Neutrophils Absolute Auto 8.8 K/mm3 (1.3-6.7); Neutrophils Percent Auto 72.9 % (45.5-73.1); Platelet Count Result 170 k/mm3 (150-375); Red Blood Count 3.93 M/mm3 (4.2-5.4); Red Cell Distribution Width 13.2 % (11.5-14.5); White Blood Count 12.1 K/mm3 (4.5-10.0)
[2022-03-18 06:59] LABS: Anion Gap 7 mmol/L (8-16); Blood Urea Nitrogen 15 mg/dL (7-17); Calcium 7.2 mg/dL (8.4-10.2); Carbon Dioxide 26 mmol/L (22-30); Chloride 104 mmol/L (98-107); Estimated CRCL calculation 55 ml/min; Estimated Glomerular Filt Rate > 60; Glucose 115 mg/dL (65-110); Potassium 4.5 mmol/L (3.4-5.0); Sodium 137 mmol/L (137-145)
--- NOTE | 2022-03-18 07:53 | WPDANESPN ---
Anes - Prog Note Post-Op Date/Time: 03/18/22 07:53 Cardiovascular status: normal Respiratory status: normal Airway patency: baseline Mental status: baseline Post-Op hydration status: normal Vital Signs: Last Vital Signs Temp 36.2 C L 03/18/22 04:00 Pulse 73 03/18/22 04:00 Resp 16 03/18/22 04:00 BP 115/58 L 03/18/22 04:00 Pulse Ox 94 03/18/22 04:00 O2 Del Method Room Air 03/17/22 19:47 O2 Flow Rate 2 03/17/22 14:15 Pain Score (VAS): 04/24 I/O: Intake & Output 03/17/22 03/17/22 03/18/22 15:59 23:59 07:59 Intake Total 150 150 250 Output Total 0 Balance 150 150 250 Laboratory Tests 03/18/22 05:50 03/18/22 05:50 03/17/22 03/17/22 03/17/22 08:37 08:45 13:01 WBC RBC Hgb Hct MCV MCH MCHC RDW Plt Count MPV Immature Gran % (Auto) Neut % (Auto) Lymph % (Auto) [place] % (Auto) Eos % (Auto) Baso % (Auto) Lymph # (Auto) [place] # (Auto) Eos # (Auto) Baso # (Auto) Abs Immat Gran (auto) Absolute Neuts (auto) Absolute Nucleated RBC Nucleated RBC % Sodium Potassium Chloride Carbon Dioxide Anion Gap BUN Creatinine Estim Creat Clear Calc Estimated GFR Glucose POC Capillary Glucose 134 H 188 H Calcium Blood Type A Positive Antibody Screen Negative 03/18/22 03/18/22 05:50 05:50 WBC 12.1 H RBC 3.93 L Hgb 10.9 L D Hct 35.2 L MCV 89.6 MCH 27.7 MCHC 31.0 L RDW 13.2 Plt Count 170 MPV 11.3 H Immature Gran % (Auto) 0.4 Neut % (Auto) 72.9 Lymph % (Auto) 17.5 L [place] % (Auto) 9.0 H Eos % (Auto) 0.0 Baso % (Auto) 0.2 Lymph # (Auto) 2.11 [place] # (Auto) 1.1 H Eos # (Auto) 0.0 Baso # (Auto) 0.0 Abs Immat Gran (auto) 0.05 H Absolute Neuts (auto) 8.8 H Absolute Nucleated RBC 0.0 Nucleated RBC % 0.0 Sodium 137 Potassium 4.5 Chloride 104 Carbon Dioxide 26 Anion Gap 7 L BUN 15 Creatinine 0.70 Estim Creat Clear Calc 55 Estimated GFR > 60 Glucose 115 H POC Capillary Glucose Calcium 7.2 L Blood Type Antibody Screen Post-procedural complaints: none Patient Feedback: Patient satisfied with anesthetic care.
[2022-03-18 08:00] VITALS: BP 137/60; PULSE 70; RESP 18; TEMP 35.9; O2SAT 99
--- NOTE | 2022-03-18 08:19 | PM.DS ---
DS: Admitting Diagnosis Discharge Date 03/18/21 Admitting Diagnosis OA knee Left DS: Discharge Diagnosis Discharge Diagnosis (1) Status post total left knee replacement: Code(s): Z96.652 - Presence of left artificial knee joint Status: Acute Assessment and Plan: Postop day 1: Left total knee arthroplasty. Patient tolerated procedure well. No complications. Pain manageable with pain medication. No numbness or tingling. We had a lengthy discussion regarding postoperative wound care, limitations, expectations, and exercises. Patient shows good understanding. She has had initial physical therapy and is tolerating it well. DVT prophylaxis: 81 mg baby aspirin b.i.d. for 14 days. Pain medication: Percocet. Antibiotic: Keflex BID for 10 days. Patient has followup appointment with Dr. Martinez in 3 weeks. DS: Summary Hospital Course Reason for hospitalization: Total knee arthroplasty Hospital Course: Patient tolerated procedure well. Has had initial PT/OT. Status at Discharge Functional status at discharge: uses cane/walker Overall status at discharge: patient is progressing back to baseline Time Spent with Patient Time attestation: Total time spent providing and/or coordinating discharge services: Exam Narrative: Overweight 81-year-old female. Resting comfortably in chair. Alert and oriented x3. No acute distress. Wearing compression socks bilaterally. Dressing intact without drainage. Mild swelling. No ecchymosis. No erythema. No hematoma. Range of motion limited due to pain. Calf nontender. Neurologic status intact. No varicosities. Distal pulses palpable. DS: Data Data Completed and Pending Labs on day of discharge: Labs from last 24 hours 03/18/22 03/18/22 03/17/22 05:50 05:50 13:01 WBC 12.1 H RBC 3.93 L Hgb 10.9 L D Hct 35.2 L MCV 89.6 MCH 27.7 MCHC 31.0 L RDW 13.2 Plt Count 170 MPV 11.3 H Immature Gran % (Auto) 0.4 Neut % (Auto) 72.9 Lymph % (Auto) 17.5 L [place] % (Auto) 9.0 H Eos % (Auto) 0.0 Baso % (Auto) 0.2 Lymph # (Auto) 2.11 [place] # (Auto) 1.1 H Eos # (Auto) 0.0 Baso # (Auto) 0.0 Abs Immat Gran (auto) 0.05 H Absolute Neuts (auto) 8.8 H Absolute Nucleated RBC 0.0 Nucleated RBC % 0.0 Sodium 137 Potassium 4.5 Chloride 104 Carbon Dioxide 26 Anion Gap 7 L BUN 15 Creatinine 0.70 Estim Creat Clear Calc 55 Estimated GFR > 60 Glucose 115 H POC Capillary Glucose 188 H Calcium 7.2 L Blood Type Antibody Screen 03/17/22 03/17/22 08:45 08:37 WBC RBC Hgb Hct MCV MCH MCHC RDW Plt Count MPV Immature Gran % (Auto) Neut % (Auto) Lymph % (Auto) [place] % (Auto) Eos % (Auto) Baso % (Auto) Lymph # (Auto) [place] # (Auto) Eos # (Auto) Baso # (Auto) Abs Immat Gran (auto) Absolute Neuts (auto) Absolute Nucleated RBC Nucleated RBC % Sodium Potassium Chloride Carbon Dioxide Anion Gap BUN Creatinine Estim Creat Clear Calc Estimated GFR Glucose POC Capillary Glucose 134 H Calcium Blood Type A Positive Antibody Screen Negative Discharge Plan Discharge Patient Disposition: Home, Self-Care Discharge Instructions: See green instruction sheets Stand Alone Forms: General Discharge Instructions Follow-up/Referrals: Eulalia Mercado PA [Physician Copier Operator] - Discharge Medications: New prednisone 5 mg tablet 5 mg PO DAILY 21 Days Qty: 21 0RF oxycodone-acetaminophen 5-325 mg tablet 1 - 2 tablet PO Q4-6H MDD 6 PRN (Reason: pain) Qty: 30 0RF cephalexin 500 mg capsule 500 mg PO BID 10 Days Qty: 20 0RF Rx Instructions: Take twice a day for 10 days. Continued aspirin 81 mg tablet,delayed release (DR/EC) 81 mg PO DAILY lisinopril 20 mg tablet 20 mg PO QAM Rx Instructions: TAKE 1 TABLET BY MO
[2022-03-18] MEDS: SENNA/DOCUSATE SODIUM TABLET 2 TAB PO (08:56)
[2022-03-18] MEDS: ASPIRIN 81 MG ENTERIC TABLET PO (08:56)
[2022-03-18] MEDS: FAMOTIDINE 20 MG TABLET PO (08:56)
[2022-03-18] MEDS: PARoxetine 10 MG TABLET 30 MG PO (08:56)
[2022-03-18] MEDS: CHOLECALCIFEROL 1,000 UNITS TABLET 5000 UNITS PO (08:56)
[2022-03-18] MEDS: lisinopriL 20 MG TABLET PO (08:57)
[2022-03-18] MEDS: predniSONE 5 MG TABLET PO (08:57)
== END 2022-03-18 11:30 | disposition home or self-care (01) ==
LOC: ANHSURGERY 10:05 → ANH3MEDSUR 16:23
PROVIDERS: Physician Assistant Surgical; PCP Family Medicine; Visit Provider Orthopaedic Surgery
PROC: (CPT 27447; principal; 2022-03-17 10:30)
DX: M17.12 Unilateral primary osteoarthritis, left knee (principal); G89.18 Other acute postprocedural pain; I10 Essential (primary) hypertension; E03.9 Hypothyroidism, unspecified; E11.9 Type 2 diabetes mellitus without complications; E78.2 Mixed hyperlipidemia; F41.9 Anxiety disorder, unspecified; F33.9 Major depressive disorder, recurrent, unspecified; G47.33 Obstructive sleep apnea (adult) (pediatric); E66.9 Obesity, unspecified; Z68.29 Body mass index [BMI] 29.0-29.9, adult; Z79.82 Long term (current) use of aspirin; Z79.84 Long term (current) use of oral hypoglycemic drugs
CPT/HCPCS: 27447; 64447; 36415; 73560; 80048; 82948; 85025; 86850; 86900; 86901; 97110; 97116; 97161; 97165; 97530; 97535; A9270; C1713; C1776; J0131; J0171; J0690; J1100; J1885; J2250; J2270; J2405; J2704; J2795; J3010; J7030; J7120; J7512

== ENCOUNTER 2022-03-31 16:06 | Outpatient (RCR) | payer MEDICARE, SELFPAY ==
--- NOTE | 2022-03-31 17:10 | PTOPEVAL1 ---
Assessment and note entered by Kasie Blackburn, PT Evaluation Information Assessment Status Evaluation Diagnosis L TKA Subjective Information Kylah Espana reports she had her left knee replaced on 03/17/22 due to osteoarthritis and bone on bone deformity. She spent one night in the hospital and then went home with her daughter. She will be living with her daughter the next few months. She reports pain was minimal until . She went out for dinner on 03/28/22 that may have aggravated her knee. She has been doing exercises on her own over the last 2 weeks. She notes occasional pain when putting ice on her knee and with extra movement. Reported Pain Level Pain Score 0: Self Report Assessment PT Clinical Summary Kylah Espana presents 2 weeks s/p L total knee arthroplasty. She has difficulty with walking , prolonged standing, and moving the left knee. She objectively demonstrates left knee edema, decreased left knee active and passive ROM, decreased left knee and hip strength, impaired gait, impaired balance, and decreased functional abilities. She will benefit from skilled PT to address these physical and functional limitations. Plan of Care Interventions Electrical Stimulation,Hot Pack/Cold Pack,Manual Therapy,Neuro Re-education,Patient/Caregiver Educati,Therapeutic Activities,Therapeutic Exercise PT Services Indicated Yes Treatment Frequency and 3 times a week for 6 visits, then 2 times a week Duration for 6 visits These treatments will address the objective and functional deficits as defined above. The patient will be advanced safely and appropriately in order for the patient to progress towards his/her prior level of function. Additional exercises will be introduced and as well as a comprehensive home exercise program upon discharge, if needed, ?to ensure carryover of functional gains achieved in the clinic. This treatment plan has been reviewed and agreement upon by the patient.
--- NOTE | 2022-04-30 16:46 | PTOPDC ---
Assessment and note entered by Kasie Blackburn, PT Evaluation Information Assessment Status Discharge Diagnosis s/p L TKA Onset 03/17/22 Subjective Information Kylah Espana reports she is doing all previous ADLs she was prior to surgery and is not having pain. She is getting into and out of the house without difficulty and has been able to stand for 30+ minutes to iron clothes and she has walked around the whole grocery store without difficulty. She has also returned to independent driving and does not use an AD when walking. She feels she has improved 100% since having surgery and initiating PT. Reported Pain Level Pain Score 0: Self Report Assessment PT Clinical Summary Kylah Espana is now 6 weeks s/p left total knee arthroplasty. She reports a 100% overall improvement with no pain noted and no limitations in daily function since initiating PT. She objectively demonstrates improved left knee active ROM of 0-120 degrees before stretching and 0-127 degrees after stretching; improved knee and hip strength to normal; improved TUG and 5 time sit to stand times indicating no fall risk and improved functional strength; improved gait without an AD; and improved endurance. She was able to ambulate 1 ,125 ft in 6 minutes. She also was able to ascend and descend 24 steps with the handrail on one side and SBA from the PT. She will be discharged to an independent [facility] as she has met all goals. Plan of Care Interventions Electrical Stimulation,Gait Training,Hot Pack/Cold Pack,Manual Therapy,Neuro Re-education,Patient/ Caregiver Educati,Therapeutic Activities, Therapeutic Exercise PT Services Indicated No Treatment Frequency and RTD on 05/06/22 and anticipate discharge from Duration formal PT
--- NOTE | 2022-06-30 16:33 | PCPTNOTE ---
06/30/22: Patient was last treated on 04/30/22. Her progress note from that date should be considered her discharge note. Kasie Blackburn, PT
== END 2022-04-30 23:59 | disposition home or self-care (01) ==
LOC: CHSPT 16:06
PROVIDERS: Visit Provider Physician Assistant Surgical
DX: Z47.1 Aftercare following joint replacement surgery (principal); Z96.652 Presence of left artificial knee joint
CPT/HCPCS: 97014; 97110; 97112; 97161; 97530; 97750; G0283

== ENCOUNTER 2022-05-12 07:56 | Outpatient (CLI) | payer MEDICARE, SELFPAY ==
--- NOTE | ~2022-05-12 | CT_ITS ---
EXAMINATION: CT LE RT wo con DATE: 05/12/2022 08:25 INDICATION: Right knee primary osteoarthritis. TECHNIQUE: Computed tomography (CT) of the right lower limb was performed without intravenous contras t. Automated exposure control and iterative reconstruction technique were employed. The dose-length p roduct was 1696.21 mGy-cm. COMPARISON: Right knee radiographs 10/01/2021 FINDINGS: Right hip demonstrate normal bone alignment. No fracture. There is severe right hip osteoar thritis. There is a right hip joint effusion with loose bodies. Right knee demonstrates normal bone a lignment. No fracture. There is moderate osteoarthritis of medial compartment, mild osteoarthritis of lateral compartment, and severe osteoarthritis of patellofemoral compartment. There is a small knee joint effusion. There is a loose body in the intercondylar notch. There is mild right ankle joint ost eoarthritis. There is heterotopic ossification at posterior aspect of medial malleolus. IMPRESSION: 1. Severe right hip osteoarthritis. 2. Right hip joint effusion with loose bodies. 3. Severe right knee osteoarthritis. 4. Small right knee joint effusion with loose body. 5. Mild right ankle osteoarthritis. Reviewed, dictated and finalized at location A. NIC SCIENCES PROFESSOR
[2022-05-12 08:54] LABS: Hematocrit 42.5 % (37.0-47.0); Hemoglobin 13.3 g/dL (12.0-15.0)
[2022-05-12 08:56] LABS: Albumin Level 4.7 g/dL (3.5-5.1); Estimated Glomerular Filt Rate > 60; Glucose 121 mg/dL (65-110)
== END 2022-05-12 07:57 | disposition home or self-care (01) ==
LOC: ANHIMG 08:04
PROVIDERS: PCP Family Medicine; Visit Provider Physician Assistant Surgical
DX: M17.11 Unilateral primary osteoarthritis, right knee (principal); I10 Essential (primary) hypertension; E11.9 Type 2 diabetes mellitus without complications; E78.2 Mixed hyperlipidemia
CPT/HCPCS: 36415; 73700; 82040; 82565; 82947; 83036; 85014; 85018

== ENCOUNTER 2022-07-01 13:39 | Outpatient (CLI) | payer MEDICARE, SELFPAY ==
[2022-07-01 14:39] LABS: Basophils Absolute Auto 0.1 K/mm3 (0.0-0.1); Basophils Percent Auto 1.1 % (0.2-1.2); Eosinophils Absolute Auto 0.3 K/mm3 (0-0.3); Eosinophils Percent Auto 5.9 % (0-4.4); Hemoglobin 13.2 g/dL (12.0-15.0); Immature Granulocyte Absolute 0.02 K/mm3 (0.00-0.031); Immature Granulocyte Percent A 0.4 % (0-0.5); Lymphocytes Absolute Auto 1.91 K/mm3 (0.9-3.2); Mean Corpuscular HGB Conc 32.2 g/dl (32-36); Mean Corpuscular Hemoglobin 27.4 pg (26-34); Mean Corpuscular Volume 85.1 fl (80-100); Mean Platelet Volume 10.3 fl (7.4-10.4); Monocytes Absolute Auto 0.4 K/mm3 (0.1-0.6); Monocytes Percent Auto 7.8 % (2.6-8.5); Neutrophils Absolute Auto 2.9 K/mm3 (1.3-6.7); Neutrophils Percent Auto 50.8 % (45.5-73.1); Platelet Count Result 177 k/mm3 (150-375); Red Blood Count 4.82 M/mm3 (4.2-5.4); Red Cell Distribution Width 13.2 % (11.5-14.5); White Blood Count 5.6 K/mm3 (4.5-10.0)
[2022-07-01 14:50] LABS: Albumin Level 4.4 g/dL (3.5-5.1)
[2022-07-01 14:53] LABS: Anion Gap 4 mmol/L (8-16); Blood Urea Nitrogen 13 mg/dL (7-17); Calcium 9.2 mg/dL (8.4-10.2); Carbon Dioxide 34 mmol/L (22-30); Chloride 100 mmol/L (98-107); Estimated Glomerular Filt Rate > 60; Glucose 107 mg/dL (65-110); Potassium 4.8 mmol/L (3.4-5.0); Sodium 138 mmol/L (137-145)
[2022-07-01 14:56] LABS: Urine Cotinine NEGATIVE
== END 2022-07-01 13:40 | disposition home or self-care (01) ==
LOC: ANHSURGERY 13:43
PROVIDERS: Anesthesiology; PCP Family Medicine; Visit Provider Orthopaedic Surgery
DX: Z01.818 Encounter for other preprocedural examination (principal); M17.11 Unilateral primary osteoarthritis, right knee; E11.9 Type 2 diabetes mellitus without complications; Z79.84 Long term (current) use of oral hypoglycemic drugs
CPT/HCPCS: 80048; 80307; 82040; 85025; 87081

== ENCOUNTER 2022-07-28 01:50 | Day surgery (SDC) | payer MEDICARE, SELFPAY ==
--- NOTE | 2022-07-01 13:44 | PC.NURSE ---
PRE-OP INSTRUCTIONS, PLEASE READ CAREFULLY Report to the Outpatient Waiting Room, entrance under the green pavilion located off [facility], at time _0600_ on date _07/28/22_. Planned Procedure Time: _0730_. PACK A SMALL OVERNIGHT BAG AND LEAVE IN THE CAR ALONG WITH YOUR WALKER Time changes happen often and if your time is changed the preop area will call you the afternoon before. - You and your visitor will be asked to self-screen and do not enter if you have any COVID symptoms. - A mask is optional within the hospital at this time. -VISITING HOURS 8AM-8PM Patients may have clear liquids (water, carbonated beverages, clear teas, apple juice) until 3 hours prior to surgery (0430 AM) with a maximum of 20 ounces. - No food from midnight until time of surgery Take the following medications with a SIP of water the morning of surgery: _PAROXETINE (PAXIL)_ DO NOT STOP ANY OF YOUR OTHER PRESCRIPTION MEDICATIONS PRIOR TO SURGERY ?EXCEPT THE FOLLOWING Medications to discontinue per DR. RUIZ - _ASPIRIN, NAPROXEN 7 DAYS PRIOR TO SURGERY, Date to take last dose 07/20/22_ Medications to discontinue per ANESTHESIA - _MULTIVITAMIN AND SUPPLEMENTS 3 DAYS PRIOR TO SURGERY, Date to take last dose 07/24/22 Please no make-up, nail portuguese, hairspray, perfume, deodorant, or body powder the day of surgery. No jewelry (including any body piercings) or valuables the day of surgery, leave them at home. Please take a shower or bath the night before, or the morning of, surgery with an antibacterial soap. Wear comfortable, loose fitting clothing. - Jewelry must be removed prior to entering the operating room. Rings and piercings that are not removed may be cut off. - The hospital will not accept responsibility for valuables. - Please leave all valuables, including medications, at home the day of surgery. If you are going home after surgery, a licensed tank driver must drive you home. - NO public transportation without another adult if you receive anesthesia. - We recommend that an adult stay with you for 24 hours following discharge. - We also recommend that you do not drive, make important decision, drink alcoholic beverages, or take any drugs that were not prescribed by your health care provider for at least 24 hours after your discharge time. Follow any additional instructions given to you from your surgeon. If you or anyone in your household have experienced Covid symptoms in the past week, please notify your surgeon or the nurse liaison at the phone number below for possible testing. Instructions given to _PATIENT_and asked if any additional questions and then verbalized understanding. Patient advised to call surgeon office or pre surgery nurse liaison [phone] if any additional questions.
[2022-07-01 13:59] VITALS: BP 142/64; PULSE 66; RESP 18; TEMP 37.2; O2SAT 99; BMI 29.0
--- NOTE | 2022-07-27 10:34 | WPDANESEPPF ---
Anes - Initial Pre Proc Eval Procedure: Operation Date: 07/28/22 07:30 Proposed Procedures p Right Custom Total Knee Arthroplasty - Albert Martinez MD Date/Time: 07/27/22 10:34 Surgeon: Albert Martinez MD Pre Op Diagnosis: Prim O A Right Knee Patient Data Age: 82 Gender: F Height: 1.65 m Weight: 79.2 kg Last Vital Signs Temp 37.2 C 07/01/22 13:59 Pulse 66 07/01/22 13:59 Resp 18 07/01/22 13:59 BP 142/64 H 07/01/22 13:59 Pulse Ox 99 07/01/22 13:59 O2 Del Method Room Air 07/01/22 13:59 Allergies Allergy/AdvReac Type Severity Reaction Status Date / Time No Known Allergies Allergy Verified 07/21/22 09:36 Home Medications Medication Instructions Recorded Confirmed Type blood sugar diagnostic (Contour #100 ea 10/27/19 07/21/22 Rx Next Test Strips) lancets #100 ea 06/17/20 07/21/22 Rx aspirin 81 mg tablet,delayed 81 mg PO DAILY 09/11/20 07/28/22 History release biotin 5,000 mcg-lutein 10 mg 1 tablet PO DAILY 02/18/22 07/28/22 History tablet (Biotin Plus) calcium carb-ergocalciferol (vit 1 tablet PO DAILY 02/18/22 07/28/22 History D2) 600 mg calcium-200 unit tablet cholecalciferol (vitamin D3) 125 125 mcg PO DAILY 02/18/22 07/28/22 History mcg (5,000 unit) capsule cyanocobalamin (vitamin B-12) 1,000 mcg PO DAILY 02/18/22 07/28/22 History 1,000 mcg capsule lisinopril 20 mg tablet 20 mg PO QAM 02/18/22 07/28/22 History lutein 20 mg capsule 20 mg PO DAILY 02/18/22 07/28/22 History multivitamin 1 tablet PO DAILY 02/18/22 07/28/22 History naproxen sodium 220 mg capsule 220 mg PO HS PRN Pain 02/18/22 07/28/22 History (Aleve) simvastatin 40 mg tablet 40 mg PO QAM 02/18/22 07/28/22 History paroxetine HCl 30 mg tablet See Rx Instructions .Route 06/02/22 07/28/22 Rx .COMPLEX #90 tabs metformin 500 mg tablet,extended 2,000 mg PO HS 07/01/22 07/28/22 History release 24 hr Patient hx anesthesia problems: none Family hx anesthesia problems: none Results Review: All pre-operative results and documents have been reviewed as part of the pre-operative evaluation. [facility] Past Medical History Medical History (Updated 07/28/22 @ 06:53 by Shlomo Garcia DO) Allergic reaction Anxiety Essential (primary) hypertension Hypothyroidism MDD (major depressive disorder), recurrent episode Mixed hyperlipidemia Obesity Obstructive sleep apnea (adult) (pediatric) Type 2 diabetes mellitus without complications Urticaria Surgical History Surgical History Delivery by section H/O: hysterectomy (~1985) History of appendectomy History of meniscectomy of right knee (~2014) History of total left knee replacement (~03/2022) S/P adenoidectomy Family History Family History Mother Family history of cardiovascular disease Father Family history of lung cancer Daughter Cancer Other Carcinoma of colon Social History Social History Smoking status: Never smoker Second hand tobacco smoke exposure: No Additional smoking assessment comments: PT DENIES ALL FORMS OF TOBACCO USE Alcohol intake: never Substance use: never Substance use type: does not use Lack of Transportation: No Lack of Food: Never True Current Housing: I Have Housing Concerned About Future Housing: No Difficulty Paying Gas/Electric Bills: No Difficulty Paying for Meds: No Currently Unemployed: No Education: Trade/Vocational Certificate Difficulty w/ Childcare or Family Care: No Living arrangements: with family Additional living arrangements comments: LIVES WITH DAUGHTER [employer] Occupation/Education: retired Gender identity (if verbalized by the patient): Female Sexual Orientation (if Verbalized by the Patient): Straight or Heterosexual Spiritual care concerns: No Anes - Eval Fi
[2022-07-28] VITALS (13 sets, daily range): BP systolic 124–175; BP diastolic 55–77; PULSE 61–91; RESP 13–20; TEMP 35.6–36.8; O2SAT 88–100
--- NOTE | ~2022-07-28 | XR_ITS ---
EXAMINATION: [id number] DATE: 07/28/2022 10:32 CDT INDICATION: Right total knee arthroplasty TECHNIQUE: 2 views right knee FINDINGS: There is a right total knee arthroplasty in expected position. Subcutaneous gas with fluid and air in the joint are consistent with recent surgery. No evidence of periprosthetic fracture. IMPRESSION: 1. Recent right total knee arthroplasty. Reviewed, dictated and finalized at location L.
[2022-07-28] MEDS: ACETAMINOPHEN 500 MG TABLET 1000 MG PO ×4 (06:20→23:34)
[2022-07-28] MEDS: LACTATED RINGERS 1,000 ML 30 ML IV CONT (06:25)
[2022-07-28 06:42] LABS: Glucose Point of Care 136 mg/dl (65-105)
[2022-07-28] MEDS: TRANEXAMIC ACID 1,000MG/ISO100 1,000 MG/100 ML BAG 200 MG IVPB (07:01)
--- NOTE | 2022-07-28 07:08 | WPDANESPNB ---
Anes - Peripheral Nerve Block Date/Time: 07/28/22 07:08 I have discussed with the patient/family/POA the placement of a peripheral nerve block for post-operative pain management, including associated risks, benefits, complications, and side effects. Alternative methods of post-operative analgesia were detailed. Questions were solicited and answers provided to the satisfaction of the patient/family/POA. Time-Out: A pre-procedural Time-Out was completed immediately before starting the procedure and confirmed: Patient Identification, Site, Procedure, Patient Position and the Availability of Requisite Equipment. Clinical Indications: Acute post-operative pain management requested by the operative surgeon. Nerve Block Insertion Note Anes-nerve block: adductor canal right Patient position: supine Skin prep: chlorhexidine Needle: 22 gauge, stimulating, insulated echogenic needle. Needle length: 80 mm Technique: ultrasound Injectate: bupivacaine 0.5% with epi 5 mcg/ml (30cc - no epi) Observations: tolerated well Complications: none Procedure start time:: 717 Procedure end time:: 721
--- NOTE | 2022-07-28 07:20 | WPDHPUPDATE1 ---
History and Physical Update Update Date/Time: 07/28/22 07:20 History and Physical has been reviewed, including an updated exam of the patient. There are NO changes in the patient's condition. Risks, benefits, and alternatives have been discussed and questions answered. Patient agrees to proceed with procedure.
[2022-07-28] MEDS: ceFAZolin 2 GM/D5W 50 ML 2 GM/50 ML BAG IVPB ×3 (07:30→23:40)
[2022-07-28] MEDS: GENTAMICIN BONE CEMENT REFOBACIN 1 EACH TOPICAL (08:13)
[2022-07-28 10:08] LABS: Glucose Point of Care 164 mg/dl (65-105)
--- NOTE | 2022-07-28 10:18 | P.OP_ITS ---
Procedure Note - Detailed Date of Procedure 07/28/22 Pre-op Diagnosis Prim O A Right Knee Post-op Diagnosis Same Procedure Performed Total knee arthroplasty, right. Surgeon Albert Martinez MD Anesthesia General and Regional (Subsartorial block.) Findings Good bone quality. Mild medial release. Persistent 5 degree flexion contracture. Description of Procedure Preoperative antibiotics were given. The limb was prepped and draped in the usual sterile fashion with a well-padded tourniquet high on the thigh. The limb was exsanguinated and the tourniquet inflated to 300 mmHg. A longitudinal incision was created just medial to the patella. A trivector approach to the knee was performed. Arthrotomy was taken down through the joint capsule. No significant releases were initially taken. The femur was exposed and the F1 jig was applied. The coring tool was used to remove the cartilage for the F2 jig to sit flush with the bone. The jig was pinned and the distal cut carefully taken. Caliper measurements confirmed appropriate bony resections according to the preoperative templated plan. The F4 cutting jig for the femur was applied, at the standard rotation. The jig position was adjusted slightly to match the anatomic bone resection measurements. The AP and anterior chamfer cuts were taken. The F5 jig was applied and the posterior chamfer cuts were taken. The tibia was prepared using the T1 jig, after removing cartilage for the jig co ntact points. Proper alignment was checked with the alignment adi. The tibia was cut using the T1u guide. Gap balancing was performed. Gap measurements were taken and the knee was trialed. Excellent alignment and soft tissue balancing was confirmed. The posterior cruciate ligament was recessed along the proximal tibia. The patella was cut for resurfacing. Three lug holes were drilled. Meniscal remnants were removed. The trial components were assembled. Excellent range of motion and proper soft tissue balancing were confirmed throughout the full range of motion. Patellar tracking was excellent. The knee was copiously irrigated periodically throughout the procedure. The real implants were cemented into position. Excess cement was carefully removed. The wound was closed in layers with interrupted #1 Vicryl suture, #2 strata fix suture, 2-0 strata fix suture, 3-0 strata fix suture. Steri-Strips placed on the skin with the knee flexed. Sterile bulky dressing applied. The patient was brought to the recovery room in stable condition. There were no complications. Implants [employer] total knee arthroplasty. Cemented. Cruciate retaining. 6 mm insert. 32 mm oval patella. Estimated Blood Loss -50.0 Drains No Complications No immediate complications Condition Stable Disposition PACU [facility] Billing Surgery - Charge Forward: Surgery Billing
[2022-07-28] MEDS: PARoxetine 10 MG TABLET PO (12:16)
[2022-07-28 12:27] LABS: Glucose Point of Care 170 mg/dl (65-105)
--- NOTE | 2022-07-28 13:48 | PM.IMCN ---
Assessment and Plan Assessment and plan (1) Status post right knee replacement: Code(s): Z96.651 - Presence of right artificial knee joint Status: Acute (2) Type 2 diabetes mellitus without complications: Code(s): E11.9 - Type 2 diabetes mellitus without complications Status: Acute (3) Hypothyroidism: Code(s): E03.9 - Hypothyroidism, unspecified Status: Resolved (4) Essential (primary) hypertension: Code(s): I10 - Essential (primary) hypertension Status: Acute Plan 83 years old F with PMH of DM, HTN admitted after elective right total knee arthroplasty.POD#0 1)Right Knee arthroplasty: Post op care as per primary team 2)Diabetes Mellitus: BG check TID AC and HS Low dose SS Hold metformin for now 3)HTN: c/w lisinopril 4)DVT ppx:As per primary team 5)Code:Full 6)Dispo:as per primary team Thnak you for the consult, will follow along the hospital course. HPI Data of Consult Consult date: 07/28/22 Requesting Physician: Albert Martinez MD Primary Care Provider: Tyler Herrmann MD Consult Narrative Reason for consult: medical management Narrative: Kylah Espana is a 82 year old female admitted after elective right total knee arthroplasty. She is comfortably resting, has no complaints. Denies smoking, last BM was yesterday. Review of Systems Review of Systems: All systems reviewed & are unremarkable except as noted in HPI and below PMFSH Past Medical History Medical History Allergic reaction Anxiety Essential (primary) hypertension Hypothyroidism MDD (major depressive disorder), recurrent episode Mixed hyperlipidemia Obesity Obstructive sleep apnea (adult) (pediatric) Type 2 diabetes mellitus without complications Urticaria Surgical History Surgical History Delivery by section H/O: hysterectomy (~1985) History of appendectomy History of meniscectomy of right knee (~2014) History of total left knee replacement (~03/2022) S/P adenoidectomy Family History Family History Mother Family history of cardiovascular disease Father Family history of lung cancer Daughter Cancer Other Carcinoma of colon Social History Social History Smoking status: Never smoker Second hand tobacco smoke exposure: No Additional smoking assessment comments: PT DENIES ALL FORMS OF TOBACCO USE Alcohol intake: never Substance use: never Substance use type: does not use Lack of Transportation: No Lack of Food: Never True Current Housing: I Have Housing Concerned About Future Housing: No Difficulty Paying Gas/Electric Bills: No Difficulty Paying for Meds: No Currently Unemployed: No Education: Trade/Vocational Certificate Difficulty w/ Childcare or Family Care: No Living arrangements: with family Additional living arrangements comments: LIVES WITH DAUGHTER AC Occupation/Education: retired Gender identity (if verbalized by the patient): Female Sexual Orientation (if Verbalized by the Patient): Straight or Heterosexual Spiritual care concerns: No Meds Home Medications and Allergies Home Medications Medication Instructions Recorded Confirmed Type blood sugar diagnostic (Contour #100 ea 10/27/19 07/21/22 Rx Next Test Strips) lancets #100 ea 06/17/20 07/21/22 Rx aspirin 81 mg tablet,delayed 81 mg PO DAILY 09/11/20 07/28/22 History release biotin 5,000 mcg-lutein 10 mg 1 tablet PO DAILY 02/18/22 07/28/22 History tablet (Biotin Plus) calcium carb-ergocalciferol (vit 1 tablet PO DAILY 02/18/22 07/28/22 History D2) 600 mg calcium-200 unit tablet cholecalciferol (vitamin D3) 125 125 mcg PO DAILY 02/18/22 07/28/22 History mcg (5,000 unit) capsule cyanocobalamin (vitamin B-12
[2022-07-28] MEDS: oxyCODONE HCL (*CRX) 5 MG TAB IR 10 MG PO (13:55)
--- NOTE | 2022-07-28 16:27 | PC.NURSE ---
This patient, Kylah Espana, was admitted to [facility] Surg Room 325- on 07/28/2022 @ 1053. Patient/family oriented to hospital policies and general routines including ID bracelet, bed and alarms, visiting hours, pain management, procedures, bathroom and other care routines, personal items, smoking policy, room service/diet, and visiting hours. Information on how to activate the Rapid Response Team has been discussed. Patient/Family are encouraged to report perceived risks to care and to ask questions if they do not understand what they are told or what they should do.
[2022-07-28 16:29] LABS: Glucose Point of Care 208 mg/dl (65-105)
[2022-07-28] MEDS: INSULIN ASPART (*BKC) 100 UNITS/ML SUB-Q (16:54)
[2022-07-28] MEDS: SENNA/DOCUSATE SODIUM TABLET 2 TAB PO (16:54)
[2022-07-28] MEDS: ASPIRIN 81 MG ENTERIC TABLET PO (16:54)
[2022-07-28 20:03] LABS: Glucose Point of Care 181 mg/dl (65-105)
[2022-07-28] MEDS: FAMOTIDINE 20 MG TABLET PO (20:14)
[2022-07-29 04:18] VITALS: BP 125/57; PULSE 64; RESP 14; TEMP 35.8; O2SAT 92
[2022-07-29] MEDS: oxyCODONE HCL (*CRX) 5 MG TAB IR 10 MG PO (04:19)
[2022-07-29] MEDS: ACETAMINOPHEN 500 MG TABLET 1000 MG PO (05:58)
[2022-07-29] MEDS: ceFAZolin 2 GM/D5W 50 ML 2 GM/50 ML BAG IVPB (06:00)
[2022-07-29 06:11] LABS: Basophils Percent Auto 0.3 % (0.2-1.2); Eosinophils Percent Auto 0.2 % (0-4.4); Hematocrit 36.5 % (37.0-47.0); Hemoglobin 11.5 g/dL (12.0-15.0); Immature Granulocyte Absolute 0.04 K/mm3 (0.00-0.031); Immature Granulocyte Percent A 0.4 % (0-0.5); Lymphocytes Absolute Auto 1.35 K/mm3 (0.9-3.2); Lymphocytes Percent Auto 13.5 % (18.3-44.2); Mean Corpuscular HGB Conc 31.5 g/dl (32-36); Mean Corpuscular Hemoglobin 27.3 pg (26-34); Mean Corpuscular Volume 86.5 fl (80-100); Monocytes Absolute Auto 0.7 K/mm3 (0.1-0.6); Neutrophils Absolute Auto 7.8 K/mm3 (1.3-6.7); Neutrophils Percent Auto 78.6 % (45.5-73.1); Platelet Count Result 155 k/mm3 (150-375); Red Blood Count 4.22 M/mm3 (4.2-5.4); Red Cell Distribution Width 13.4 % (11.5-14.5)
[2022-07-29 06:23] LABS: Anion Gap 4 mmol/L (8-16); Blood Urea Nitrogen 12 mg/dL (7-17); Calcium 8.5 mg/dL (8.4-10.2); Carbon Dioxide 31 mmol/L (22-30); Chloride 102 mmol/L (98-107); Estimated CRCL calculation 48 ml/min; Estimated Glomerular Filt Rate > 60; Glucose 133 mg/dL (65-110); Potassium 4.6 mmol/L (3.4-5.0); Sodium 137 mmol/L (137-145)
[2022-07-29 07:24] LABS: Glucose Point of Care 127 mg/dl (65-105)
[2022-07-29 08:00] VITALS: BP 136/61; PULSE 57; RESP 16; TEMP 35.8; O2SAT 96
--- NOTE | 2022-07-29 08:28 | PM.DS ---
DS: Admitting Diagnosis Discharge Date 07/29/22 Admitting Diagnosis OA knee Right DS: Discharge Diagnosis Discharge Diagnosis (1) Status post right knee replacement: Code(s): Z96.651 - Presence of right artificial knee joint Status: Acute Assessment and Plan: Postop day 1: Right total knee arthroplasty. Patient tolerated procedure well. No complications. Pain manageable with pain medication. No numbness or tingling. We had a lengthy discussion regarding postoperative wound care, limitations, expectations, and exercises. Patient shows good understanding. She has had initial physical therapy and is tolerating it well. DVT prophylaxis: 81 mg baby aspirin b.i.d. for 14 days. Pain medication: Percocet. Ibuprofen. Prednisone. Patient has followup appointment with Dr. Martinez in 3 weeks. DS: Summary Hospital Course Reason for hospitalization: Total knee arthroplasty Hospital Course: Patient tolerated procedure well. Has had initial PT/OT. Status at Discharge Functional status at discharge: uses cane/walker Overall status at discharge: patient is progressing back to baseline Time Spent with Patient Time attestation: Total time spent providing and/or coordinating discharge services: Exam Narrative: 82-year-old overweight female. Resting comfortably in chair. Alert and oriented x3. No acute distress. Wearing compression socks bilaterally. Dressing intact without drainage. Moderate swelling. No ecchymosis. No erythema. No hematoma. Range of motion limited due to pain. Calf nontender. Neurologic status intact. No varicosities. Distal pulses palpable. DS: Data Data Completed and Pending Labs on day of discharge: Labs from last 24 hours 07/29/22 07/29/22 07/28/22 07:22 05:51 19:56 WBC 10.0 RBC 4.22 Hgb 11.5 L Hct 36.5 L MCV 86.5 MCH 27.3 MCHC 31.5 L RDW 13.4 Plt Count 155 MPV 11.0 H Immature Gran % (Auto) 0.4 Neut % (Auto) 78.6 H Lymph % (Auto) 13.5 L Lee % (Auto) 7.0 Eos % (Auto) 0.2 Baso % (Auto) 0.3 Lymph # (Auto) 1.35 Lee # (Auto) 0.7 H Eos # (Auto) 0.0 Baso # (Auto) 0.0 Abs Immat Gran (auto) 0.04 H Absolute Neuts (auto) 7.8 H Absolute Nucleated RBC 0.0 Nucleated RBC % 0.0 Sodium 137 Potassium 4.6 Chloride 102 Carbon Dioxide 31 H Anion Gap 4 L BUN 12 Creatinine 0.70 Estim Creat Clear Calc 48 Estimated GFR > 60 Glucose 133 H POC Capillary Glucose 127 H 181 H Calcium 8.5 07/28/22 07/28/22 07/28/22 16:17 12:24 09:55 WBC RBC Hgb Hct MCV MCH MCHC RDW Plt Count MPV Immature Gran % (Auto) Neut % (Auto) Lymph % (Auto) Lee % (Auto) Eos % (Auto) Baso % (Auto) Lymph # (Auto) Lee # (Auto) Eos # (Auto) Baso # (Auto) Abs Immat Gran (auto) Absolute Neuts (auto) Absolute Nucleated RBC Nucleated RBC % Sodium Potassium Chloride Carbon Dioxide Anion Gap BUN Creatinine Estim Creat Clear Calc Estimated GFR Glucose POC Capillary Glucose 208 H 170 H 164 H Calcium Discharge Plan Discharge Patient Disposition: Home, Self-Care Discharge Instructions: See green instruction sheets Patient Instructions: Knee Replacement (DC) Stand Alone Forms: General Discharge Instructions Follow-up/Referrals: Eulalia Mercado PA [Physician Drain Cleaner] - Discharge Medications: New aspirin 81 mg tablet,delayed release (DR/EC) 81 mg PO BID 14 Days Qty: 28 0RF oxycodone-acetaminophen 5-325 mg tablet 1 - 2 tablet PO Q4-6H MDD 6 PRN (Reason: pain) Qty: 30 0RF prednisone 5 mg tablet 5 mg PO DAILY 21 Days Qty: 21 0RF Continued aspirin 81 mg tablet,delayed release (DR/EC) 81 mg PO DAILY metformin 500 mg tablet extended release 24 hr 2,000 mg PO HS lisinopril 20 mg tablet 20 mg PO
[2022-07-29 08:49] VITALS: O2SAT 93
[2022-07-29 08:53] VITALS: O2SAT 95
[2022-07-29] MEDS: polyethylene glycoL 3350 17 GM POWD.PACK PO (08:53)
[2022-07-29] MEDS: FAMOTIDINE 20 MG TABLET PO (08:53)
[2022-07-29] MEDS: SENNA/DOCUSATE SODIUM TABLET 2 TAB PO (08:53)
[2022-07-29] MEDS: PARoxetine 10 MG TABLET PO (08:53)
[2022-07-29] MEDS: SIMVASTATIN 20 MG TABLET 40 MG PO (08:53)
[2022-07-29] MEDS: ASPIRIN 81 MG ENTERIC TABLET PO (08:53)
[2022-07-29] MEDS: lisinopriL 20 MG TABLET PO (08:53)
[2022-07-29] MEDS: predniSONE 5 MG TABLET PO (08:53)
== END 2022-07-29 11:15 | disposition home or self-care (01) ==
LOC: ANHSURGERY 10:30 → ANH3MEDSUR 11:02
PROVIDERS: Physician Assistant Surgical; PCP Family Medicine; Visit Provider Orthopaedic Surgery
PROC: (CPT 27447; principal; 2022-07-28 07:30)
DX: M17.11 Unilateral primary osteoarthritis, right knee (principal); I10 Essential (primary) hypertension; E78.5 Hyperlipidemia, unspecified; E03.9 Hypothyroidism, unspecified; E11.9 Type 2 diabetes mellitus without complications
CPT/HCPCS: 27447; 36415; 73560; 80048; 82948; 85025; 86850; 86900; 86901; 97110; 97116; 97165; 97530; 97535; A9270; C1713; C1776; J0171; J0690; J1100; J1170; J1815; J1885; J2250; J2270; J2405; J2704; J2795; J3010; J7120; J7512

== ENCOUNTER 2022-08-11 15:50 | Outpatient (RCR) | payer MEDICARE, SELFPAY ==
--- NOTE | 2022-08-12 07:21 | PTOPEVAL1 ---
Assessment and note entered by JT File, PT Evaluation Information Assessment Status Evaluation Diagnosis s/p R TKA Onset 07/28/22 Subjective Information patient reports she had R knee replacement on . she reports prior to surgery she was limping and had difficulty with standing for increased time. she reports she was not using any AD for ambulation prior to her surgery. she reports she would like to get back to walking without a limp and taking care of her home. Reported Pain Level Pain Score 4: Self Report Assessment PT Clinical Summary mrs. white is an 82 yo woman who presents to skilled PT services for evaluation and treatment following R TKA. she presents today with decreased rom, weakness, swelling, and abnormal gait. she would benefit from continued skilled PT and exercises to improve her quality of life and return to prior level activities. Plan of Care Interventions Gait Training,Hot Pack/Cold Pack,Intermittent Compression,Manual Therapy,Neuro Re-education, Patient/Caregiver Educati,Therapeutic Activities, Therapeutic Exercise PT Services Indicated Yes Treatment Frequency and 3x weekly for 12 visits Duration These treatments will address the objective and functional deficits as defined above. The patient will be advanced safely and appropriately in order for the patient to progress towards his/her prior level of function. Additional exercises will be introduced and as well as a comprehensive home exercise program upon discharge, if needed, ?to ensure carryover of functional gains achieved in the clinic. This treatment plan has been reviewed and agreement upon by the patient.
--- NOTE | 2022-08-12 07:21 | OPREHPOC ---
Outpatient Therapy Plan of Care This is a Multidisciplinary Plan of Care that may contain components documented by all disciplines (PT, OT, and ST.) PT Problem 1 PT Problem #1 Knowledge Deficit PT Goal 1 Goal 1. independent and compliant with HEP to improve tolerance for continued skilled PT and exercises Target Visit 6 PT Problem 2 PT Problem #2 Pain PT Goal 1 Goal 1. patient to report no more than 2/10 pain in the R knee with all activities to improve quality of life and functional activity performance. Target Visit 12 PT Problem 3 PT Problem #3 Impaired Range of Motion PT Goal 1 Goal 1. improve R knee arom to 0-120 degrees Target Visit 12 PT Problem 4 PT Problem #4 Impaired Strength PT Goal 1 Goal 1. improve R hip flex strength to 4+/5 2. improve R knee strength to 5/5 Target Visit 12 PT Problem 5 PT Problem #5 Impaired Functional Mobil PT Goal 1 Goal 1. LEFS to display less than 30% functionally declined 2. patient to ambulate with a cane in 2 weeks 3. patient to ambulate without AD by DC with normal gait mechanics and no pain 4. patient to ambulate up and down steps reciprocally without antalgia or pain Target Visit 12
--- NOTE | 2022-09-04 17:01 | OPREHPOC ---
Outpatient Therapy Plan of Care This is a Multidisciplinary Plan of Care that may contain components documented by all disciplines (PT, OT, and ST.) PT Problem 1 PT Problem #1 Knowledge Deficit PT Goal 1 Goal 1. independent and compliant with HEP to improve tolerance for continued skilled PT and exercises Target Visit 6 Progress Met PT Problem 2 PT Problem #2 Pain PT Goal 1 Goal 1. patient to report no more than 2/10 pain in the R knee with all activities to improve quality of life and functional activity performance. Target Visit 12 Progress Met PT Problem 3 PT Problem #3 Impaired Range of Motion PT Goal 1 Goal 1. improve R knee arom to 0-120 degrees Target Visit 12 Comment continue PT Problem 4 PT Problem #4 Impaired Strength PT Goal 1 Goal 1. improve R hip flex strength to 4+/5 2. improve R knee strength to 5/5 Target Visit 12 PT Goal 2 Goal continue PT Problem 5 PT Problem #5 Impaired Functional Mobil PT Goal 1 Goal 1. LEFS to display less than 30% functionally declined 2. patient to ambulate with a cane in 2 weeks MET 3. patient to ambulate without AD by DC with normal gait mechanics and no pain MET 4. patient to ambulate up and down steps reciprocally without antalgia or pain Target Visit 12 Comment continue
--- NOTE | 2022-09-04 17:01 | PTOPPROGNS ---
Assessment and note entered by Alba Callaway DPT Evaluation Information Assessment Status Progress Diagnosis s/p R TKA Onset 07/28/22 Subjective Information Patient reports her pain remains at 1/10. She reports she is no longer using an AD and has returned to ADLs at OF. She reports that navigating stairs continue to be challenging. Assessment PT Clinical Summary Patient has been seen for 10 visits of skilled PT. She is making great progress towards goals with improved R knee strength and ROM. She continues to lack full extension of the R knee and would benefit from continued skilled PT to address impairments and return to OF. Plan of Care Interventions Gait Training,Hot Pack/Cold Pack,Intermittent Compression,Manual Therapy,Neuro Re-education, Patient/Caregiver Educati,Therapeutic Activities, Therapeutic Exercise PT Services Indicated Yes Treatment Frequency and continue with current POC Duration These treatments will address the objective and functional deficits as defined above. The patient will be advanced safely and appropriately in order for the patient to progress towards his/her prior level of function. Additional exercises will be introduced and as well as a comprehensive home exercise program upon discharge, if needed, ?to ensure carryover of functional gains achieved in the clinic. This treatment plan has been reviewed and agreement upon by the patient.
--- NOTE | 2022-09-09 17:09 | OPREHPOC ---
Outpatient Therapy Plan of Care This is a Multidisciplinary Plan of Care that may contain components documented by all disciplines (PT, OT, and ST.) PT Problem 1 PT Problem #1 Knowledge Deficit PT Goal 1 Goal 1. independent and compliant with HEP to improve tolerance for continued skilled PT and exercises Target Visit 6 Progress Met PT Problem 2 PT Problem #2 Pain PT Goal 1 Goal 1. patient to report no more than 2/10 pain in the R knee with all activities to improve quality of life and functional activity performance. Target Visit 12 Progress Met PT Problem 3 PT Problem #3 Impaired Range of Motion PT Goal 1 Goal 1. improve R knee arom to 0-120 degrees Target Visit 16 Comment continue PT Problem 4 PT Problem #4 Impaired Strength PT Goal 1 Goal 1. improve R hip flex strength to 4+/5 2. improve R knee strength to 5/5 Target Visit 16 PT Goal 2 Goal continue PT Problem 5 PT Problem #5 Impaired Functional Mobil PT Goal 1 Goal 1. LEFS to display less than 30% functionally declined 2. patient to ambulate with a cane in 2 weeks MET 3. patient to ambulate without AD by DC with normal gait mechanics and no pain MET 4. patient to ambulate up and down steps reciprocally without antalgia or pain Target Visit 16 Comment continue
--- NOTE | 2022-09-09 17:09 | PTOPREEVAL ---
Assessment and note entered by Alba Callaway DPT Evaluation Information Assessment Status Re-evaluation Diagnosis s/p R TKA Onset 07/28/22 Subjective Information Patient reports her pain remains at 1/10. She reports she has been compliant with HEP and doing heel prop for increased knee extension. She reports that navigating stairs continue to be challenging. Reported Pain Level Pain Score 1: Self Report Assessment PT Clinical Summary Patient has been seen for 12 visits of skilled PT with great improvements towards goals. She demonstrate improved strength and ROM of the R knee but continues to lack full knee extension. She also reports difficulty with normal stair navigation. She would benefit from continued skilled PT to address remaining impairments and return to PLOF. Plan of Care Interventions Gait Training,Hot Pack/Cold Pack,Intermittent Compression,Manual Therapy,Neuro Re-education, Patient/Caregiver Educati,Therapeutic Activities, Therapeutic Exercise PT Services Indicated Yes Treatment Frequency and continue 2x weekly for 4 visits Duration These treatments will address the objective and functional deficits as defined above. The patient will be advanced safely and appropriately in order for the patient to progress towards his/her prior level of function. Additional exercises will be introduced and as well as a comprehensive home exercise program upon discharge, if needed, ?to ensure carryover of functional gains achieved in the clinic. This treatment plan has been reviewed and agreement upon by the patient.
== END 2022-09-17 23:59 | disposition home or self-care (01) ==
LOC: CHSPT 15:50
PROVIDERS: Visit Provider Orthopaedic Surgery
DX: Z47.1 Aftercare following joint replacement surgery (principal); Z96.651 Presence of right artificial knee joint
CPT/HCPCS: 97014; 97016; 97110; 97161; 97530; G0283

== ENCOUNTER 2022-11-06 11:17 | Outpatient (CLI) | payer MEDICARE, SELFPAY ==
[2022-11-06 12:28] LABS: Alanine Aminotransferase 16 U/L (6-35); Albumin Level 4.3 g/dL (3.5-5.1); Alkaline Phosphatase 66 U/L (38-126); Anion Gap 2 mmol/L (8-16); Aspartate Amino Transferase 19 U/L (14-36); Bilirubin,Total 0.5 mg/dL (0.2-1.3); Blood Urea Nitrogen 16 mg/dL (7-17); Calcium 9.1 mg/dL (8.4-10.2); Carbon Dioxide 30 mmol/L (22-30); Chloride 102 mmol/L (98-107); Estimated Glomerular Filt Rate > 60; Glucose 127 mg/dL (65-110); Sodium 134 mmol/L (137-145)
[2022-11-06 12:51] LABS: Hemoglobin A1C 6.2 % (<5.7)
== END 2022-11-06 11:18 | disposition home or self-care (01) ==
PROVIDERS: PCP Family Medicine; Visit Provider Family Medicine
DX: E11.9 Type 2 diabetes mellitus without complications (principal)
CPT/HCPCS: 36415; 80053; 83036

== ENCOUNTER 2023-08-25 09:25 | Outpatient (CLI) | payer MEDICARE, SELFPAY ==
--- NOTE | ~2023-08-25 | XR_ITS ---
Left Knee Technique: AP, lateral, and oblique views were obtained. Clinical History: Arthroplasty Findings: No fracture or dislocation is seen. Left knee arthroplasty in place, without evidence of anton rdware complication.. Soft tissues are unremarkable. No joint effusion is seen. Impression: No acute abnormality. Left knee arthroplasty. Reviewed, dictated and finalized at location . Impression: No acute abnormality. Left knee arthroplasty.
--- NOTE | ~2023-08-25 | XR_ITS ---
Right Knee Technique: AP, lateral, and sunrise views were obtained. Clinical History: Pain Findings: No fracture or dislocation is seen. Right knee arthroplasty in place. Soft tissues are unre markable. No joint effusion is seen. Impression: No acute abnormality. Right knee arthroplasty. Reviewed, dictated and finalized at location . Impression: No acute abnormality. Right knee arthroplasty.
[2023-08-25 10:30] LABS: Appearance Urine Clear (Clear); Bacteria Urine None Seen /hpf; Bilirubin Urine Negative (Negative); Blood Urine Negative (Negative); Color Urine Yellow (Yellow); Glucose Urine UA Negative (Negative); Ketones Urine Negative (Negative); Leukocyte Esterase Ur 2+ LEU/UL (Negative); Need Manual Microscopic Reviewed; Nitrate Urine Negative (Negative); Non Pathogenic Casts 0-2; Protein Urine Negative (Negative); RBC Urine 0-2 /hpf (0-2); Specific Grav Ur 1.015 (1.001-1.035); Squamous Epithelial Cell Urine None Seen /hpf (Few); Urobilinogen Urine 0.2 mg/dL (<2.0); WBC Urine 0-5 /hpf (0-3)
[2023-08-25 10:30] LABS: Hematocrit 45.9 % (37.0-47.0); Hemoglobin 14.9 g/dL (12.0-15.0); Mean Corpuscular HGB Conc 32.5 g/dl (32-36); Mean Corpuscular Hemoglobin 27.5 pg (26-34); Mean Corpuscular Volume 84.8 fl (80-100); Mean Platelet Volume 11.2 fl (7.4-10.4); Platelet Count Result 184 k/mm3 (150-375); Red Blood Count 5.41 M/mm3 (4.2-5.4); Red Cell Distribution Width 12.8 % (11.5-14.5); White Blood Count 4.9 K/mm3 (4.5-10.0)
[2023-08-25 10:37] LABS: Alanine Aminotransferase 16 U/L (6-35); Albumin Level 4.4 g/dL (3.5-5.1); Alkaline Phosphatase 72 U/L (38-126); Anion Gap 6 mmol/L (4-12); Aspartate Amino Transferase 21 U/L (14-36); Bilirubin,Total 0.8 mg/dL (0.2-1.3); Blood Urea Nitrogen 16 mg/dL (7-17); Calcium 9.4 mg/dL (8.4-10.2); Carbon Dioxide 29 mmol/L (22-30); Chloride 105 mmol/L (98-107); Cholesterol 259 mg/dL (0-200); Estimated Glomerular Filt Rate > 60; Glucose 149 mg/dL (65-110); HDL Direct 45 mg/dL; Potassium 5.1 mmol/L (3.4-5.0); Sodium 140 mmol/L (137-145); Triglycerides 246 mg/dL (<150)
[2023-08-25 10:49] LABS: Hemoglobin A1C 6.6 % (<5.7)
[2023-08-25 10:50] LABS: LDL Cholesterol Direct 165 mg/dL; Vitamin D 25 Hydroxy 34.2 ng/mL
[2023-08-25 10:54] LABS: Creatinine Urine 90.7 mg/dL
[2023-08-25 10:57] LABS: MALB Creatinine Ratio 7.2 mg/g (0-30); Microalbumin Urine Random 6.5 mg/L (0-16.7)
[2023-08-25 11:03] LABS: Add Urine Microscopic? YES
[2023-08-25 11:45] LABS: Folic Acid 18.8 ng/mL (2.76->20)
== END 2023-08-25 09:26 | disposition home or self-care (01) ==
LOC: ANHLAB 09:28
PROVIDERS: PCP Family Medicine; Visit Provider Family Medicine
DX: Z96.651 Presence of right artificial knee joint (principal); Z96.652 Presence of left artificial knee joint; E11.9 Type 2 diabetes mellitus without complications; E55.9 Vitamin D deficiency, unspecified; E78.2 Mixed hyperlipidemia; I10 Essential (primary) hypertension; R53.83 Other fatigue; Z00.00 Encounter for general adult medical examination without abnormal findings; Z68.29 Body mass index [BMI] 29.0-29.9, adult
CPT/HCPCS: 36415; 73562; 80053; 80061; 81001; 82043; 82306; 82607; 82746; 83036; 84443; 85027

== ENCOUNTER 2023-09-24 15:26 | Outpatient (CLI) | payer MEDICARE, SELFPAY ==
[2023-09-24 16:02] LABS: Anion Gap 10 mmol/L (4-12); Blood Urea Nitrogen 24 mg/dL (7-17); Calcium 9.5 mg/dL (8.4-10.2); Carbon Dioxide 32 mmol/L (22-30); Chloride 97 mmol/L (98-107); Estimated Glomerular Filt Rate > 60; Glucose 169 mg/dL (65-110); Potassium 3.8 mmol/L (3.4-5.0); Sodium 139 mmol/L (137-145)
== END 2023-09-24 15:27 | disposition home or self-care (01) ==
PROVIDERS: PCP Family Medicine; Visit Provider Physician Assistant Medical
DX: E87.5 Hyperkalemia (principal)
CPT/HCPCS: 36415; 80048

== ENCOUNTER 2023-12-08 08:51 | Outpatient (CLI) | payer MEDICARE, SELFPAY ==
[2023-12-08 09:56] LABS: Alanine Aminotransferase 14 U/L (6-35); Albumin Level 4.3 g/dL (3.5-5.1); Alkaline Phosphatase 68 U/L (38-126); Anion Gap 12 mmol/L (4-12); Aspartate Amino Transferase 22 U/L (14-36); Bilirubin,Total 0.6 mg/dL (0.2-1.3); Blood Urea Nitrogen 27 mg/dL (7-17); Calcium 9.4 mg/dL (8.4-10.2); Carbon Dioxide 28 mmol/L (22-30); Chloride 98 mmol/L (98-107); Estimated Glomerular Filt Rate > 60; Glucose 153 mg/dL (65-110); Potassium 4.2 mmol/L (3.4-5.0); Sodium 138 mmol/L (137-145)
[2023-12-08 10:42] LABS: Hemoglobin A1C 7.4 % (<5.7)
== END 2023-12-08 08:52 | disposition home or self-care (01) ==
PROVIDERS: PCP Family Medicine; Visit Provider Family Medicine
DX: E11.9 Type 2 diabetes mellitus without complications (principal)
CPT/HCPCS: 36415; 80053; 83036

== ENCOUNTER 2024-06-20 16:03 | Outpatient (CLI) | payer MEDICARE, SELFPAY ==
[2024-06-20 16:35] LABS: Hematocrit 45.1 % (37.0-47.0); Hemoglobin 14.8 g/dL (12.0-15.0)
[2024-06-20 16:45] LABS: Albumin Level 4.5 g/dL (3.5-5.1); Estimated Glomerular Filt Rate > 60; Glucose 117 mg/dL (65-110)
--- OUTSIDE RECORDS SUMMARY | 2024-06-20 17:01 | XMS_ITS | Continuity of Care Document ---
Author Organization [facility] Address [address] [place] [address] Phone Care Team Providers Care Electrical Tests Supervisor Name Role Phone Aubrey Rodriguez Unavailable Unavailable Procedures Procedure Date Office/outpatient Visit, Est No Script Advance Directives Directive Yes / No Effective Date File Name No Information Encounters Encounter Description Practice Location Reason(s) For Visit Diagnoses Date Provider Providers Copied on Encounter Office/outpat ient Visit, Est [facility], [address], [place], [place], [id number], [place] tel:[phone] SEC [facility] No Information [address] , [address], [place], [address], [place]. tel:[phone] Referring Provider: Lou May, [place], [address]. tel:[phone] Family History Family Member Type Diagnosis Age At Onset No Information Payers Payer name Insurance type Covered democrat ID Authoriza tion(s) [place] [id number] [place] [id number] Social History Type Description Quantity Date Captured [...]
--- OUTSIDE RECORDS SUMMARY | 2024-06-20 17:01 | XMS_ITS | Clinical Summary ---
Author Organization [facility] Address [place] [address] Care Team Providers Care Inspector Process Name Role Phone Tyler Herrmann MD Primary Care Provider Allergies No known active allergies Medications PARoxetine (PAXIL) 30 mg tablet TK 1 T PO QD 2 9 Active metFORMIN XR (GLUCOPHAGE XR) 500 mg 24 hr tablet TK 4 TS D WITH EVENING MEAL 0 9 Active levothyroxine (SYNTHROID, LEVOTHROID) 50 mcg tablet TK 1 T PO QD 1 9 Active simvastatin (ZOCOR) 40 mg tablet TK 1 T PO D 1 9 Active CONTOUR NEXT METER misc TEST QAM 0 9 Active aspirin 81 mg enteric coated tablet Take 1 tablet (81 mg total) by mouth daily Active multivitamin capsule Take 1 capsule by mouth daily Active Microlet Lancet misc USE TO CHECK BLOOD SUGAR ONCE DAILY. 0 Active calcium carbonate (OS-ILENE) 650 mg calcium (1,625 mg) tablet Take 1 tablet (1,625 mg total) by mouth daily Active vit D3-vit Y-lbrnnghif-mab s [phone] wsai-xfq-xj-mg tablet Take by mouth Active biotin 2,500 mcg capsule Take by mouth Acti ve green tea leaf extract capsule Take by mouth Active UNABLE TO FIND Black Cohosh 40mcg 2 times a day Active magnesium gluconate 200 mg tabletIndicatio ns:hypomagnesem ia 1 tablet (200 mg total) Active potassium 99 mg tablet Take by mouth Active mometasone (ELOCON) 0.1 % cream Apply to outer ear twice a day for two weeks for itching 15 g 3 1 Active Additional Information Patient not taking.Reported on 11/29/2023 diphenhydrAMINE 25 mg capsule TAKE 2 CAPSULES BY MOUTH 3 TIMES A DAY NEEDED FOR ALLERGIC REACTION 2 Active methylPREDNISol one (MEDROL DOSEPACK) 4 mg Dosepack TAKE 6 TABLETS ON DAY 1 DIRECTED ON PACKAGE AND DECREASE BY 1 TAB EACH DAY FOR A TOTAL OF 6 DAYS 2 Active lisinopriL (PRINIVIL,ZESTR IL) 20 mg tablet Take 1 tablet (20 mg total) by mouth daily 2 Active fluocinolone in oil (DermOtic) 0.01 % dropsIndication s:Otitis Externa Eczema Appy 4 drops to right ear once a day for one week then as needed 20 mL 3 2 Active Additional Information Patient not taking.Reported on 11/29/2023 hydroCHLOROthia zide (HYDRODIURIL) 25 mg tablet 25 MG ORALLY DAILY 4 Active Active Problems Problem Noted Date Diagnosed Date 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 Bilateral impacted cerumen 08/09/2018 Sensorineural hearing loss, asymmetrical 019 Encounters Date Type Department Care Team Description 06/05/2024 [facility] - [facility] [address] [facility] [address] [place] [address] [place] [address] Kaylen Cage MS from Last 3 Months Surgical History Surgery Date Site/Laterality Comments HYSTERECTOMY SECTION Medical History Medical History Date Comments Anxiety Cataract Diabetes (HCC) Thyroid condition HL (hearing loss) Family History Medical History Relation Name Comments Colon cancer Daughter Heart disease Mother Relation Name Status Comments Daughter Mother Social History Tobacco Use Types Packs/Day Years Used Date Smoking Tobacco: Never Personal Safety Answer Date Recorded Getting School Help Needed Not on file 05/09 Comments Unknown Sex and Gender Information Value Date Recorded Sex Assigned at Not on file Legal Sex Female 1:25 PM [employer] Gender Identity Not on file Sexual Orientation Not on file Obstetrics History Last Filed Vital Signs Vital Sign Reading Time Taken Comments Blood Pressure - - Pulse - - Temperature - - Respiratory Rate - - Oxygen Saturation - - Inhaled Oxygen Concentration - - Weight 77.6 kg (171 lb) 11/29/2023 1:45 PM CDT Height 165.1 cm (5' 5 ) 11/29/2023 1:45 PM CDT Body Mass Index 28.46 11/29/2023 1:45 PM CDT Plan of Treatment Health Maintenance Due Date Last Done Comments Depression Screening 1940 Fall Risk Assessment 1940 Osteoporosis Screening-Bone Density Scan 1940 DTaP/Tdap/Td Vaccine (1 - Tdap) 05/30/1951 Hepatitis B Screening 1958 Zoster Vaccine (1 of 2) 1990 Well Visit 65+ 2005 Pneumococcal vaccine 65+ (2 of 2 - PPSV23) 12/10/2019 12/09/2018 Influenza Vaccine (Season Ended) 2024 12/09/2018, 01/13/2018, 01/06/2017, Additional history exists Insurance MEDICARE COMMERCIAL GENERIC Care Teams Inspector Process Relationship Specialty Start Date End Date Tyler Herrmann MD [address] [facility] [address] [place] [address] PCP - General 12/19/14
--- OUTSIDE RECORDS SUMMARY | 2024-06-20 17:01 | XMS_ITS | Referral Summary ---
Author Organization [facility] Address [address] [place] [address] Care Team Providers Care Precision Inspector Name Role Phone Tyler Herrmann MD Primary Care Provider Encounters Date Type Department Care Team Description 06/05/2024 Telephone [facility] ([facility]) - [facility] [address] [facility] 11th [place] [address] [place] [address] Kaylen Cage MS from Last 3 Months Allergies No known active allergies Medications PARoxetine [...] total) by mouth daily Active vit D3-vit B-szameqhog-yuv s [phone] unhb-xgo-gf-mg tablet Take by mouth Active biotin 2,500 [...] cerumen 08/09/2018 Sensorineural hearing loss, asymmetrical 019 Social History Tobacco Use Types Packs/Day Years Used Date Smoking Tobacco: Never Personal Safety Answer Date Recorded Getting School Help Needed Not on file 05/09 Comments Unknown Sex and Gender Information Value Date Recorded Sex Assigned at Not on file 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 Gender Identity Not on file Sexual Orientation Not on file Last Filed Vital Signs Vital Sign Reading Time Taken Comments Blood Pressure - - Pulse - - Temperature - - Respiratory Rate - - Oxygen Saturation - - Inhaled Oxygen Concentration - - Weight 77.6 kg (171 lb) 11/29/2023 1:45 PM CDT Height 165.1 cm (5' 5 ) 11/29/2023 1:45 PM CDT Body Mass Index 28.46 11/29/2023 1:45 PM CDT Plan of Treatment Not on file Insurance MEDICARE COMMERCIAL GENERIC Care Teams Precision Inspector Relationship Specialty Start Date End Date Tyler Herrmann MD [address] [facility] [address] [place] [address] PCP - General 12/19/14
--- OUTSIDE RECORDS SUMMARY | 2024-06-20 17:01 | XMS_ITS | CONTINUITY OF CARE DOCUMENT ---
Author Name olman thurman Address Unknown Organization [facility] Address [address] [place] [address] [address] [place] [address] Phone [phone] Care Team Providers Care Canine Service Instructor Trainer Name Role Phone olman thurman Unavailable Unavailable
[2024-06-20 19:32] LABS: Hemoglobin A1C 7.2 % (<5.7)
== END 2024-06-20 16:04 | disposition home or self-care (01) ==
PROVIDERS: PCP Family Medicine; Visit Provider Orthopaedic Surgery
DX: E55.9 Vitamin D deficiency, unspecified (principal); M16.12 Unilateral primary osteoarthritis, left hip; E78.2 Mixed hyperlipidemia; E11.9 Type 2 diabetes mellitus without complications
CPT/HCPCS: 36415; 82040; 82565; 82947; 83036; 85014; 85018

== ENCOUNTER 2024-06-27 09:38 | Outpatient (CLI) | payer MEDICARE, SELFPAY ==
--- NOTE | 2024-06-27 09:52 | ECG_ITS ---
Test Date: 2024-06-27 10:06:20 Measurements Intervals Darby Rate: 62 P: 33 DC: 172 QRS: 33 QRSD: 85 T: 62 QT: 394 QTc: 401 Interpretive Statements SINUS RHYTHM DELAYED PRECORDIAL R/S TRANSITION LOW QRS VOLTAGE IN PRECORDIAL LEADS BORDERLINE ST-T WAVE ABNORMALITY- INF/HIGH LAT LEADS BASELINE ARTIFACT- II, III, AVR, AVF BORDERLINE ECG No previous ECG available for comparison Electronically Signed On 06-27-2024 10:41:44 CDT by Puma Lambert D.O.
--- OUTSIDE RECORDS SUMMARY | 2024-06-27 10:20 | XMS_ITS | Continuity of Care Document ---
Author Organization [facility] Address [address] [place] [address] Phone Care Team Providers Care Fashion Marketer Name Role Phone Aubrey Rodriguez Unavailable Unavailable Procedures Procedure Date Office/outpatient Visit, Est No Script Advance Directives Directive Yes / No Effective Date File Name No Information Encounters Encounter Description Practice Location Reason(s) For Visit Diagnoses Date Provider Providers Copied on Encounter Office/outpat ient Visit, Est [facility], [address], [place], [place], [id number], [place] tel:[phone] [facility] No Information [address]. [address] [facility] [place] , [address], [place], [address], [place]. tel:[phone] Referring Provider: Lou May, [place], [address]. tel:[phone] Family History Family Member Type Diagnosis Age At Onset No Information Payers Payer name Insurance type Covered libertarian ID Authoriza tion(s) [place] [id number] BCBS [place] Commercial BL [id number] Social History Type Description Quantity Date Captured [...]
--- OUTSIDE RECORDS SUMMARY | 2024-06-27 10:20 | XMS_ITS | CONTINUITY OF CARE DOCUMENT ---
Author Name olman thurman Address Unknown Organization [facility] Address [address] [place] [address] [address] [place] [address] Phone [phone] Care Team Providers Care Regional Service Manager Name Role Phone olman thurman Unavailable Unavailable
--- OUTSIDE RECORDS SUMMARY | 2024-06-27 10:20 | XMS_ITS | Clinical Summary ---
Author Organization [facility] Address [facility] [place] [address] Care Team Providers Care Media Reconciliation Specialist Name Role Phone Tyler Herrmann MD Primary [...] total) by mouth daily Active vit D3-vit I-vtadozmce-uzb s [phone] qqrp-liy-ho-mg tablet Take by mouth Active biotin 2,500 [...] Type Department Care Team Description 06/05/[address] 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
--- OUTSIDE RECORDS SUMMARY | 2024-06-27 10:20 | XMS_ITS | Referral Summary ---
Author Organization [facility] Address [address] [place] [address] Care Team Providers Care Field Artillery Radar Operator Name Role Phone Tyler Herrmann MD Primary Care Provider Encounters Date Type Department Care Team Description 06/05/2024 Telephone [facility] ([facility]) - [facility] [address] 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
== END 2024-06-27 09:39 | disposition home or self-care (01) ==
PROVIDERS: PCP Family Medicine; Visit Provider Orthopaedic Surgery
DX: I10 Essential (primary) hypertension (principal)
CPT/HCPCS: 93005

== ENCOUNTER 2024-08-14 15:29 | Outpatient (CLI) | payer MEDICARE, SELFPAY ==
--- OUTSIDE RECORDS SUMMARY | 2024-08-14 15:36 | XMS_ITS | Clinical Summary ---
Author Organization [facility] Address [facility] [place] [address] Care Team Providers Care Watch Dial Maker Name Role Phone Tyler Herrmann MD Primary [...] total) by mouth daily Active vit D3-vit T-gepjulqfj-sr ps [phone] dwfd-ojg-oy-mg tablet Take by mouth Active biotin 2,500 mcg capsule Take by mouth Acti ve green tea leaf extract capsule Take by mouth Active UNABLE TO FIND Black Cohosh 40mcg 2 times a day Active magnesium gluconate 200 mg tabletIndicati ons:hypomagnes emia 1 tablet (200 mg total) Active potassium 99 mg tablet Take by mouth Active mometasone (ELOCON) 0.1 % cream Apply to outer ear twice a day for two weeks for itching 15 g 3 1 Active Additional Information Patient not taking.Reported on 11/29/2023 diphenhydrAMIN E 25 mg capsule TAKE 2 CAPSULES BY MOUTH 3 TIMES A DAY NEEDED FOR ALLERGIC REACTION 2 Active methylPREDNISo lone (MEDROL DOSEPACK) 4 mg Dosepack TAKE 6 TABLETS ON DAY 1 DIRECTED ON PACKAGE AND DECREASE BY 1 TAB EACH DAY FOR A TOTAL OF 6 DAYS 2 Active lisinopriL (PRINIVIL,ZEST RIL) 20 mg tablet Take 1 tablet (20 mg total) by mouth daily 2 Active hydroCHLOROthi azide (HYDRODIURIL) 25 mg tablet 25 MG ORALLY DAILY 4 Active fluocinolone in oil (DermOtic) 0.01 % dropsIndicatio ns:Otitis Externa Eczema Appy 4 drops to both ears once a day for one week then as needed 20 mL 3 5 Active fluocinolone in oil (DermOtic) 0.01 % dropsIndicatio ns:Otitis Externa Eczema Appy 4 drops to right ear once a day for one week then as needed 20 mL 3 2 07/19/19 25 Discontin ued(Dupli chip order) Active Problems Problem Noted Date Diagnosed Date 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 Bilateral impacted cerumen 08/09/2018 Sensorineural hearing loss, asymmetrical 019 Encounters Date Type Department Care Team Description 07/18/2024 11:15 AM CDT Procedure visit [facility] Otolaryngology [address] [place] [address] Medical Office Building [address] [place] [address] Raul Loco Au.D. Sensorineural hearing loss (SNHL) of both ears (Primary Dx) 07/18/2024 11:00 AM CDT Office Visit [facility]) - [facility] ENT [address] [place] [address] Medical Office Building [address] [place] [address] Josefina Womack NP Bilateral impacted cerumen (Primary Dx); Eczematoid otitis externa of both ears, unspecified chronicity; Ear itching 06/27/2024 4:00 PM CDT Procedure visit [facility] Otolaryngology [address] [facility] 11th [place] [address] [place] [address] Ghada Patterson Au.D. Sensorineural hearing loss, asymmetrical 06/05/2024 Telephone [facility] ([facility]) - [facility] ENT [address] [facility] 11th [place] [address] [place] [address] Kaylen Cage MS from Last 3 Months Surgical History Surgery Date Site/Laterality Comments HYSTERECTOMY SECTION Medical History Medical History Date Comments Anxiety Cataract Diabetes (HCC) Thyroid condition [place] (hearing loss) Family History Medical History Relation Name Comments Colon cancer Daughter Heart disease Mother Relation Name Status Comments Daughter Mother Social History Tobacco Use Types Packs/Day Years Used Date Smoking Tobacco: Never Comments Unknown Sex and Gender Information Value Date Recorded Sex Assigned at Not on file 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 Gender Identity Not on file Sexual Orientation Not on file Obstetrics History Last Filed Vital Signs Vital Sign Reading Time Taken Comments Blood Pressure - - Pulse - - Temperature - - Respiratory Rate - - Oxygen Saturation - - Inhaled Oxygen Concentration - - Weight 77.6 kg (171 lb) 07/18/2024 10:37 AM CDT Height 165.1 cm (5' 5) 07/18/2024 10:37 AM CDT Body Mass Index 28.46 07/18/2024 10:37 AM CDT Plan of Treatment Health Maintenance Due [...] 2024 12/09/2018, 01/13/2018, 01/06/2017, Additional history exists Procedures Procedure Name Priority Date/Time Associated Diagnosis Comments AUDBASE RESULTS 07/18/2024 10:35 AM CDT from Last 3 Months Results * AudBase Results (07/18/2024 10:35 AM CDT) Provider Scanning AUDIOLOGY SERVICES ORDERABLES Final Result from Last 3 Months Insurance MEDICARE Schedule Savvy GENERIC Care Teams Watch Dial Maker Relationship Specialty Start Date End Date Tyler Herrmann MD [address] [address] [facility] - General 12/19/14
--- OUTSIDE RECORDS SUMMARY | 2024-08-14 15:36 | XMS_ITS | Referral Summary ---
Author Organization [facility] Address [address] [place] [address] Care Team Providers Care Rag Grader Name Role Phone Tyler Herrmann MD Primary Care Provider Encounters Date Type Department Care Team Description 07/18/2024 11:00 AM CDT Office Visit [facility] [place] [facility] ENT [address] [place] [address] Medical Office Building [address] [place] [address] Josefina Womack NP Bilateral impacted cerumen (Primary Dx); Eczematoid otitis externa of both ears, unspecified chronicity; Ear itching 07/18/2024 11:15 AM CDT Procedure visit [facility] Otolaryngology [address] [place] [address] Office Building [address] [place] [address] Raul Loco Au.D. Sensorineural hearing loss (SNHL) of both ears (Primary Dx) 06/27/2024 4:00 PM CDT Procedure visit [facility] Otolaryngology [facility] 11th [place] [address] [place] [address] Ghada Patterson Au.D. Sensorineural hearing loss, asymmetrical 06/05/[address] 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
--- OUTSIDE RECORDS SUMMARY | 2024-08-14 15:36 | XMS_ITS | CONTINUITY OF CARE DOCUMENT ---
Author Name olman thurman Address Unknown Organization [facility] Address [address] [place] [address] [address] [place] [address] Phone [phone] Care Team Providers Care Vice President Talent Management Name Role Phone olman thurman Unavailable Unavailable
--- OUTSIDE RECORDS SUMMARY | 2024-08-14 15:37 | XMS_ITS | Continuity of Care Document ---
Author Organization [facility] Address [address] [place] [address] Phone Care Team Providers Care Relations Specialist Name Role Phone Aubrey Rodriguez Unavailable Unavailable Procedures Procedure Date Office/outpatient Visit, Est No Script Advance Directives Directive Yes / No Effective Date File Name No Information Encounters Encounter Description Practice Location Reason(s) For Visit Diagnoses Date Provider Providers Copied on Encounter Office/outpat ient Visit, Est [facility], [address], [place], [place], [id number], [place] tel:[phone] SEC [facility] No Information [address]. [address] [facility] [place] , [address], [place], [address], [place]. tel:[phone] Referring Provider: Lou May, [place], [address]. tel:[phone] Family History Family Member Type Diagnosis Age At Onset No Information Payers Payer name Insurance type Covered alliance party ID Authoriza tion(s) Medicare [place] MB [id number] BCBS [place] Commercial BL [id number] Social History Type Description Quantity Date Captured [...]
[2024-08-14 15:54] LABS: Hematocrit 43.3 % (37.0-47.0); Mean Corpuscular HGB Conc 32.3 g/dl (32-36); Mean Corpuscular Hemoglobin 27.6 pg (26-34); Mean Corpuscular Volume 85.4 fl (80-100); Mean Platelet Volume 10.7 fl (7.4-10.4); Platelet Count Result 171 k/mm3 (150-375); Red Blood Count 5.07 M/mm3 (4.2-5.4); Red Cell Distribution Width 13.2 % (11.5-14.5); White Blood Count 6.8 K/mm3 (4.5-10.0)
[2024-08-14 15:54] LABS: Add Urine Microscopic? YES; Appearance Urine Clear (Clear); Bacteria Urine None Seen /hpf; Bilirubin Urine Negative (Negative); Blood Urine Negative (Negative); Color Urine Yellow (Yellow); Glucose Urine UA 1+ mg/dL (Negative); Ketones Urine Negative (Negative); Leukocyte Esterase Ur 3+ LEU/UL (Negative); Nitrate Urine Negative (Negative); Non Pathogenic Casts 0-2; Protein Urine Negative (Negative); RBC Urine 0-2 /hpf (0-2); Specific Grav Ur 1.024 (1.001-1.035); Squamous Epithelial Cell Urine Occasional /hpf (Few); WBC Urine 21-50 /hpf (0-3)
[2024-08-14 16:04] LABS: Creatinine Urine 129.7 mg/dL
[2024-08-14 16:09] LABS: MALB Creatinine Ratio 7.2 mg/g (0-30); Microalbumin Urine Random 9.4 mg/L (0-16.7)
[2024-08-14 16:28] LABS: Alanine Aminotransferase 19 U/L (6-35); Albumin Level 4.3 g/dL (3.5-5.1); Alkaline Phosphatase 60 U/L (38-126); Anion Gap 8 mmol/L (4-12); Aspartate Amino Transferase 23 U/L (14-36); Bilirubin,Total 0.6 mg/dL (0.2-1.3); Blood Urea Nitrogen 23 mg/dL (7-17); Calcium 9.3 mg/dL (8.4-10.2); Carbon Dioxide 28 mmol/L (22-30); Chloride 100 mmol/L (98-107); Cholesterol 193 mg/dL (0-200); Estimated Glomerular Filt Rate > 60; Glucose 210 mg/dL (65-110); HDL Direct 49 mg/dL; Potassium 3.7 mmol/L (3.4-5.0); Sodium 136 mmol/L (137-145); Triglycerides 262 mg/dL (<150)
[2024-08-14 16:38] LABS: LDL Cholesterol Direct 102 mg/dL
[2024-08-14 16:57] LABS: Thyroid Stimulating Hormone 0.036 uIU/mL (0.465-4.680)
[2024-08-15 05:49] LABS: Hemoglobin A1C 7.1 % (<5.7)
== END 2024-08-14 15:30 | disposition home or self-care (01) ==
PROVIDERS: PCP Family Medicine; Visit Provider Family Medicine
DX: E78.2 Mixed hyperlipidemia (principal); I10 Essential (primary) hypertension; E11.9 Type 2 diabetes mellitus without complications; E03.9 Hypothyroidism, unspecified; Z00.00 Encounter for general adult medical examination without abnormal findings
CPT/HCPCS: 36415; 80053; 80061; 81001; 82043; 83036; 84443; 85027

== ENCOUNTER 2024-09-06 07:53 | Outpatient (CLI) | payer MEDICARE, SELFPAY ==
[2024-09-06 08:45] LABS: Basophils Absolute Auto 0.1 K/mm3 (0.0-0.1); Basophils Percent Auto 0.9 % (0.2-1.2); Eosinophils Absolute Auto 0.5 K/mm3 (0-0.3); Eosinophils Percent Auto 7.2 % (0-4.4); Hematocrit 42.1 % (37.0-47.0); Hemoglobin 13.5 g/dL (12.0-15.0); Immature Granulocyte Absolute 0.04 K/mm3 (0.00-0.031); Immature Granulocyte Percent A 0.6 % (0-0.5); Lymphocytes Absolute Auto 1.79 K/mm3 (0.9-3.2); Lymphocytes Percent Auto 27.6 % (18.3-44.2); Mean Corpuscular HGB Conc 32.1 g/dl (32-36); Mean Corpuscular Hemoglobin 27.8 pg (26-34); Mean Corpuscular Volume 86.8 fl (80-100); Mean Platelet Volume 10.7 fl (7.4-10.4); Monocytes Absolute Auto 0.6 K/mm3 (0.1-0.6); Monocytes Percent Auto 9.2 % (2.6-8.5); Neutrophils Absolute Auto 3.5 K/mm3 (1.3-6.7); Neutrophils Percent Auto 54.5 % (45.5-73.1); Platelet Count Result 158 k/mm3 (150-375); Red Blood Count 4.85 M/mm3 (4.2-5.4); White Blood Count 6.5 K/mm3 (4.5-10.0)
[2024-09-06 10:01] LABS: MRSA (PCR) NOT DETECTED (NOT DETECTE)
[2024-09-06 10:51] LABS: Urine Cotinine NEGATIVE
== END 2024-09-06 07:54 | disposition home or self-care (01) ==
LOC: ANHSURGERY 07:58
PROVIDERS: PCP Family Medicine; Visit Provider Orthopaedic Surgery
DX: M16.11 Unilateral primary osteoarthritis, right hip (principal); Z01.818 Encounter for other preprocedural examination
CPT/HCPCS: 80307; 85025; 87641

== ENCOUNTER 2024-09-18 10:48 | Outpatient (CLI) | payer MEDICARE, SELFPAY ==
--- OUTSIDE RECORDS SUMMARY | 2024-09-18 10:59 | XMS_ITS | Continuity of Care Document ---
Author Organization [facility] Address [address] [place] [address] Phone Care Team Providers Care Shipping Lead Person Name Role Phone Aubrey Rodriguez Unavailable Unavailable Procedures Procedure Date Office/outpatient Visit, Est No Script Advance Directives Directive Yes / No Effective Date File Name No Information Encounters Encounter Description Practice Location Reason(s) For Visit Diagnoses Date Provider Providers Copied on Encounter Office/outpat ient Visit, Est [facility], [address], [place], [place], [id number], [place] tel:[phone] SEC [facility] No Information [address]. [address] [place] , [address], [place], [address], [place]. tel:[phone] Referring Provider: Lou May, [place], [address]. tel:[phone] Family History Family Member Type Diagnosis Age At Onset No Information Payers Payer name Insurance type Covered green party ID Authoriza tion(s) Medicare [place] MB [id number] BCBS [place] Commercial BL [id number] Social History Type Description Quantity Date Captured [...]
--- OUTSIDE RECORDS SUMMARY | 2024-09-18 10:59 | XMS_ITS | Clinical Summary ---
Author Organization [facility] Address [facility] [place] [address] Care Team Providers Care Plating Tank Operator Apprentice Name Role Phone Tyler Herrmann MD Primary [...] total) by mouth daily Active vit D3-vit P-bahacildl-ktz s [phone] sntf-oqm-nk-mg tablet Take by mouth Active biotin 2,500 [...] mg total) by mouth daily 2 Active hydroCHLOROthia zide (HYDRODIURIL) 25 mg tablet 25 MG ORALLY DAILY 4 Active fluocinolone in oil (DermOtic) 0.01 % dropsIndication s:Otitis Externa Eczema Appy 4 drops to both ears once a day for one week then as needed 20 mL 3 5 Active Active Problems Problem Noted Date Diagnosed Date 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 Bilateral impacted cerumen 08/09/2018 Sensorineural hearing loss, asymmetrical 019 Encounters Date Type Department Care Team Description 07/18/2024 11:15 AM CDT Procedure visit [facility] Otolaryngology [address] [place] [address] Medical Office Building [address] [place] [address] Raul Loco Au.D. Sensorineural hearing loss (SNHL) of both ears (Primary Dx) 07/18/2024 11:00 AM CDT Office Visit [facility] ENT [address] [place] [address] Medical Office Building [address] [place] [address] Josefina Womack NP Bilateral impacted cerumen (Primary Dx); Eczematoid otitis externa of both ears, unspecified chronicity; Ear itching 06/27/2024 4:00 PM CDT Procedure visit [facility] Otolaryngology [address] [place] [address] 11th [place] [address] [place] [address] Ghada Patterson Au.D. 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
--- OUTSIDE RECORDS SUMMARY | 2024-09-18 10:59 | XMS_ITS | Referral Summary ---
Author Organization [facility] Address [address] [place] [address] Care Team Providers Care Dress Fitter Name Role Phone Tyler Herrmann MD Primary Care Provider Encounters Date Type Department Care Team Description 07/18/2024 11:00 AM CDT Office Visit [facility] ENT [address] [place] [address] Medical Office Building [address] [place] [address] Josefina Womack NP Bilateral impacted cerumen (Primary Dx); Eczematoid otitis externa of both ears, unspecified chronicity; Ear itching 07/18/2024 11:15 AM CDT Procedure visit [facility] Otolaryngology [address] [place] [address] Office [address] [place] [address] Raul Loco Au.D. Sensorineural hearing loss (SNHL) of both ears (Primary Dx) 06/27/2024 4:00 PM CDT Procedure visit [facility] Otolaryngology [address] [place] [address] [address]th [place] [address] [place] [address] Ghada Patterson Au.D. Sensorineural hearing loss, asymmetrical from Last 3 Months Allergies No known [...] SUGAR ONCE DAILY. 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
[2024-09-18 12:12] LABS: Free T4 Free Thyroxine 1.03 ng/dL (0.78-2.19)
[2024-09-18 12:17] LABS: Thyroid Stimulating Hormone 0.268 uIU/mL (0.465-4.680)
== END 2024-09-18 10:49 | disposition home or self-care (01) ==
PROVIDERS: PCP Family Medicine; Visit Provider Family Medicine
DX: E05.90 Thyrotoxicosis, unspecified without thyrotoxic crisis or storm (principal); R79.89 Other specified abnormal findings of blood chemistry
CPT/HCPCS: 36415; 84439; 84443

== ENCOUNTER 2024-10-03 00:16 | Day surgery (SDC) | payer MEDICARE, SELFPAY ==
[2024-09-06 07:46] VITALS: BP 133/59; PULSE 65; RESP 16; TEMP 36.6; O2SAT 98; BMI 31.4
--- NOTE | 2024-09-06 08:24 | PC.NURSE ---
Report to the Outpatient Waiting Room, entrance under the green pavilion located off [facility], at time __1100am on date ___10/03/24____. Planned Procedure Time: __1:00pm .? Time changes happen often and if your time is changed the preop area will call you the afternoon before. - You and your visitor will be asked to self-screen and do not enter if you have any COVID symptoms. Please call surgeon if you need to reschedule. - A mask is optional within the hospital at this time. Patients may have clear liquids (water, carbonated beverages, clear teas, apple juice) until 3 hours prior to surgery with a maximum of 20 ounces. - No food from midnight until time of surgery and no smoking, or chewing tobacco (or any form of nicotine). No chewing gum, candy or mints. (1000am) Take only the following medications with a SIP of water on the morning of surgery: ____Paroxetine and Tramadol if needed DO NOT STOP ANY OF YOUR OTHER PRESCRIPTION MEDICATIONS PRIOR TO SURGERY EXCEPT THE FOLLOWING Hold all vitamins and supplements for 3 days per anesthesiologist. Date to take last dose is 09/29/24 Medications to discontinue per physician NSAIDS/ALEVE/MOTRIN/ASPIRIN for [address] Martinez Date to take last dose____09/24/24 Please no make-up, nail [facility] luc[facility], hairspray, perfume, deodorant, or body powder the day of surgery.? No jewelry (including any body piercings) or valuables the day of surgery, leave them at home.? Please take a shower or bath the night before, or the morning of, surgery with an antibacterial soap.? Wear comfortable, loose fitting clothing.? Overnight Bag, and Phone black pickler and whatever else you needed - Jewelry must be removed prior to entering the operating room.? Rings and piercings that are not removed may be cut off. - The hospital will not accept responsibility for valuables.? - Please leave all valuables, including medications, at home the day of surgery. If you are going home after surgery, a licensed hazmat tanker driver must drive you home.? - NO public transportation without another adult if you receive anesthesia. - We recommend that an adult stay with you for 24 hours following discharge. - We also recommend that you do not drive, make important decision, drink alcoholic beverages, or take any drugs that were not prescribed by your health care provider for at least 24 hours after your discharge time. Follow any additional instructions given to you from your surgeon. Telephone instructions given to __Patient and asked if any additional questions and then verbalized understanding. Patient advised to call surgeon office or pre surgery nurse liaison [phone] if any additional questions.
[2024-10-03] VITALS (13 sets, daily range): BP systolic 106–145; BP diastolic 41–85; PULSE 64–96; RESP 11–20; TEMP 36.2–36.6; O2SAT 90–98; BMI 30.4; BMI 32.8
--- NOTE | ~2024-10-03 | XR_ITS ---
EXAM: XR surgery orthopedic DATE: 10/03/2024 15:29 HISTORY: INTRA OP RIGHT TKA . COMPARISON: X-ray pelvis and right hip 09/04/2024, images only. FINDINGS: Interval right hip total arthroplasty. Hardware in good position. No hardware or osseous f racture. Gas over the joint and lateral tissues. Osteitis pubis. No unexpected radiopaque foreign bod y. IMPRESSION: Expected postsurgical changes, with no radiographic evidence of procedure or hardware rel ated complication. Reviewed, dictated and finalized at location K. IMPRESSION: Expected postsurgical changes, with no radiographic evidence of pro cedure or hardware related complication.
--- OUTSIDE RECORDS SUMMARY | 2024-10-03 00:19 | XMS_ITS | Continuity of Care Document ---
Author Organization [facility] Address [address] [place] [address] Phone Care Team Providers Care International Nurse Name Role Phone Aubrey Rodriguez Unavailable Unavailable Procedures Procedure Date Office/outpatient Visit, Est No Script Advance Directives Directive Yes / No Effective Date File Name No Information Encounters Encounter Description Practice Location Reason(s) For Visit Diagnoses Date Provider Providers Copied on Encounter Office/outpat ient Visit, Est [facility], [address], [place], [place], [id number], [place] tel:[phone] SEC [facility] No Information [address] , [address], [place], [address], [place]. tel:[phone] Referring Provider: Lou May, [place], [address]. tel:[phone] Family History Family Member Type Diagnosis Age At Onset No Information Payers Payer name Insurance type Covered democrat ID Authoriza tion(s) [place] [id number] [place] [id number] Social History Type Description Quantity Date Captured [...]
--- OUTSIDE RECORDS SUMMARY | 2024-10-03 00:19 | XMS_ITS | Clinical Summary ---
Author Organization [facility] Address [facility] [place] [address] Care Team Providers Care Registrar Museum Name Role Phone Tyler Herrmann MD Primary [...] total) by mouth daily Active vit D3-vit G-lptwstoiw-cir s [phone] mhgo-ask-fs-mg tablet Take by mouth Active biotin 2,500 [...] Description 07/18/2024 11:15 AM CDT Procedure visit [facility] Otolaryngology [address] [place] [address] Medical Office Building [address] [place] [address] Raul Loco Au.D. 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
--- OUTSIDE RECORDS SUMMARY | 2024-10-03 00:19 | XMS_ITS | Referral Summary ---
Author Organization [facility] Address [address] [place] [address] Care Team Providers Care Assistant Director Of Admissions Name Role Phone Tyler Herrmann MD Primary Care Provider Encounters Date Type Department Care Team Description 07/18/2024 11:00 AM CDT Office Visit [facility] ENT [address] [place] [address] Medical Office Building [address] [place] [address] Josefina Womack NP Bilateral impacted cerumen (Primary Dx); Eczematoid otitis externa of both ears, unspecified chronicity; Ear itching 07/18/2024 11:15 AM CDT Procedure visit [facility] Otolaryngology [address] [place] [address] Medical Office Building [address] [place] [address] Raul Loco Au.D. 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
--- NOTE | 2024-10-03 09:48 | WPDHPUPDATE1 ---
History and Physical Update Update Date/Time: 10/03/24 09:48 History and Physical has been reviewed, including an updated exam of the patient. There are NO changes in the patient's condition. Risks, benefits, and alternatives have been discussed and questions answered. Patient agrees to proceed with procedure.
[2024-10-03] MEDS: LACTATED RINGERS 1,000 ML 30 ML IV CONT ×2 (11:40→15:31)
[2024-10-03] MEDS: ACETAMINOPHEN 500 MG TABLET 1000 MG PO (11:52)
[2024-10-03] MEDS: TRANEXAMIC ACID 1,000MG/ISO100 1,000 MG/100 ML BAG 200 MG IVPB (12:54)
--- NOTE | 2024-10-03 13:06 | P.PNAN_ITS ---
Anes - Initial Pre Proc Eval Procedure: Operation Date: 10/03/24 13:00 Proposed Procedures p Right Total Hip Arthroplasty - Albert Martinez MD Date/Time: 10/03/24 13:06 Surgeon: Albert Martinez MD Pre Op Diagnosis: primary OA right hip Patient Data Age: 84 Gender: F Height: 1.63 m Weight: 80.3 kg Last Vital Signs Temp 97.2 F L 10/03/24 10:40 Pulse 64 10/03/24 10:40 Resp 14 10/03/24 10:40 BP 142/67 H 10/03/24 10:40 Pulse Ox 97 10/03/24 10:40 O2 Del Method Room Air 10/03/24 10:40 Allergies Allergy/AdvReac Type Severity Reaction Status Date / Time No Known Allergies Allergy Verified 10/03/24 11:43 Home Medications ?Medication ?Instructions ?Recorded ?Confirmed ?Type simvastatin 40 mg tablet 40 mg PO QAM #90 tabs 09/06/23 10/03/24 Rx hydrochlorothiazide 25 mg tablet 25 mg PO DAILY #90 tabs 10/18/23 10/03/24 Rx lisinopril 10 mg tablet 10 mg PO DAILY #90 tabs 10/18/23 10/03/24 Rx paroxetine HCl 10 mg tablet 10 mg PO DAILY #30 tabs 05/29/24 10/03/24 Rx tramadol 50 mg tablet 50 mg PO Q6H PRN pain #28 tabs 07/17/24 09/06/24 Rx biotin 1 mg capsule 1 mg PO DAILY 09/06/24 10/03/24 History Laboratory Tests 10/03/24 10/03/24 11:09 11:26 POC Capillary Glucose 190 H mg/dl (65-105) Blood Type A Positive Antibody Screen Negative Patient hx anesthesia problems: none Family hx anesthesia problems: none Results Review: All pre-operative results and documents have been reviewed as part of the pre- operative evaluation. [facility] Past Medical History Medical History Obesity Allergic reaction Urticaria Anxiety Essential (primary) hypertension Hypothyroidism MDD (major depressive disorder), recurrent episode Mixed hyperlipidemia Obstructive sleep apnea (adult) (pediatric) Type 2 diabetes mellitus without complications Surgical History Surgical History Status post right knee replacement (~07/28/22) History of total left knee replacement (~03/2022) History of meniscectomy of right knee (~2014) S/P adenoidectomy History of appendectomy Delivery by section H/O: hysterectomy (~1985) Family History Family History Mother Family history of cardiovascular disease Father Family history of lung cancer Daughter Cancer Other Carcinoma of colon Social History Social History Smoking status: Never smoker Second hand tobacco smoke exposure: No Additional smoking assessment comments: PT DENIES ALL FORMS OF TOBACCO USE Alcohol intake: never Substance use: never Substance use type: does not use Do You Feel Safe in your Home?: Yes Lack of Transportation: No Lack of Food: Never True Current Housing: I Have Housing Concerned About Future Housing: No Difficulty Paying Gas/Electric Bills: No Difficulty Paying for Meds: No Currently Unemployed: No Education: Trade/Vocational Certificate Difficulty w/ Childcare or Family Care: No Living arrangements: with family Additional living arrangements comments: LIVES WITH DAUGHTER AC Occupation/Education: retired Gender identity (if verbalized by the patient): Female Sexual Orientation (if Verbalized by the Patient): Straight or Heterosexual Spiritual care concerns: No Anes - Eval Final PreProcedure Day of Procedure 10/03/24 13:06 Patient weight: obese Lungs: normal air movement Airway: Mallampati scale class II and special considerations (Edentulous. ) Neurological: alert and oriented Last oral intake: >/= 8 hours ASA classification: III Emergent: no Anesthetic plan: proceed Anesthesia type and monitoring: general ETT and standard monitoring Results Review: All pre-operative results and documents have been reviewed as part of the pre- operative evaluation. HTN, hyperlipidemia, EKG w NSR. ANA but noncompliant w CPAP. Informed Consent: The patient's anesthetic plan and its attendant risks and benefits were discussed with the patient/family/POA. Questions were solicited and answers provided to the satisfaction of the patient/family/POA.
[2024-10-03] MEDS: ceFAZolin 2 GM in SODIUM CHLORIDE 0.9% IV 50 ML 100 ML IVPB (13:17)
--- NOTE | 2024-10-03 13:38 | W.PM.PROC2 ---
Procedure Note - Detailed Date of Procedure 10/03/24 Pre-op Diagnosis primary OA right hip Post-op Diagnosis Same Procedure Performed Right Total Hip Arthroplasty Surgeon Albert Martinez MD Anesthesia General Findings Preoperative hip flexion contracture. Good bone quality. Description of Procedure The patient was given preoperative antibiotics. A general anesthetic was administered. The patient was carefully placed in the lateral decubitus position on the PEG board. The shoulders and hips were carefully positioned for component and leg length positioning reference. The hip was prepped and draped in the usual sterile fashion. A longitudinal incision was created over the posterior aspect of the greater trochanter. Careful dissection was brought down through the deep fascia with electrocautery. A minimally invasive optimized posterior approach to the hip was performed. The short external rotators and capsule were taken down in an L-shaped capsulotomy. The tissue was tagged for later repair using number 2 high strength suture. The femoral neck was measured and taken in situ. The femoral head was removed. The acetabulum was carefully exposed. The inferior capsule was released. The labrum was resected. The acetabulum was sequentially reamed to the intended cup size. The cup was impacted into position with excellent press-fit. Typical anatomic landmarks, including the bony contact points as well as the inferior transverse acetabular ligament were used to confirm cup positioning with preoperative templating. Attention was turned to the femur, which was carefully exposed. The hip was reamed and then broached sequentially. Excellent press-fit was obtained with the broach. The hip was trialed. Measurements were utilized, including the lesser trochanter as well as the center of the femoral head and the tip of the trochanter, and excellent assessment of the offset and leg lengths were confirmed. The real component was impacted into position. Trialing confirmed appropriate leg length and offset with soft tissue balancing as well apparent feel of the leg, both at the knee and the heel. Soft tissues were assessed using the the iliotibial band. Reduction of the posterior capsule and external rotators were also used as a secondary assessment. The hip was copiously irrigated with pulsatile lavage periodically throughout the procedure. The real components were then assembled and reduced. The hip was stable throughout typical maneuvers, including extension, external rotation to 70 degrees, the position of sleep as well as flexion to 90 degrees with internal rotation past 35 degrees. The shake test confirmed stability without impingement. Osteophytes were removed as necessary. The short external rotators and capsule were repaired back to the posterior trochanter through drill holes. The deep fascia was repaired with running number 2 barbed suture, followed by 2-0 Stratafix suture and 3-0 Stratafix suture in the dermis. Steri-Strips were placed on the skin, followed by a sterile occlusive dressing. There were no complications. Meticulous hemostasis was maintained with the AquaMantys device. The patient was brought to the recovery room in stable condition. There were no complications. Implants The Ever Insignia hip stem, standard offset size 2 , was utilized with excellent press-fit. The 48 mm Trident II acetabular component was impacted with excellent press-fit stability. Standard polyethylene liner the +0, 36 mm Biolox ceramic femoral head was utilized. Estimated Blood Loss 300 Drains No Packing No Pathology None sent Complications No immediate complications Condition Stable Disposition PACU [facility] Billing Surgery - Charge Forward: Surgery Billing
[2024-10-03] MEDS: SODIUM CHLORIDE 0.9% IV 37.7 ML, MORPHINE SULFATE INJ (*CRX) 2 MG, ROPivacaine HCL 1% 2... INFILTRATE (13:55)
--- NOTE | 2024-10-03 17:00 | ADMGEN ---
This patient, Kylah Espana, was admitted to [facility] Room 317-01. Patient/family oriented to hospital policies and general routines including ID bracelet, bed and alarms, visiting hours, pain management, procedures, bathroom and other care routines, personal items, smoking policy, room service/diet, and visiting hours. Information on how to activate the Rapid Response Team has been discussed. Patient/Family are encouraged to report perceived risks to care and to ask questions if they do not understand what they are told or what they should do.
[2024-10-03] MEDS: oxyCODONE/ACETAMINOPHEN (*CRX) 10-325 MG TABLET 1 TAB PO (17:31)
[2024-10-03] MEDS: ASPIRIN 81 MG ENTERIC TABLET PO (17:32)
[2024-10-03] MEDS: SENNA/DOCUSATE SODIUM TABLET 2 TAB PO (17:32)
[2024-10-03] MEDS: ceFAZolin 2 GM/D5W 50 ML 2 GM/50 ML BAG IVPB (20:47)
[2024-10-04 03:15] VITALS: BP 115/52; PULSE 78; RESP 18; TEMP 36.3; O2SAT 92
[2024-10-04] MEDS: ceFAZolin 2 GM/D5W 50 ML 2 GM/50 ML BAG IVPB ×2 (05:46→11:54)
[2024-10-04 06:02] LABS: Hematocrit 37.5 % (37.0-47.0); Hemoglobin 12.2 g/dL (12.0-15.0); Immature Granulocyte Percent A 0.5 % (0-0.5); Lymphocytes Absolute Auto 1.31 K/mm3 (0.9-3.2); Mean Corpuscular HGB Conc 32.5 g/dl (32-36); Mean Corpuscular Hemoglobin 28.0 pg (26-34); Mean Corpuscular Volume 86.2 fl (80-100); Nucleated Red Blood Cells Absolute Auto 0.000 K/mm3 (0.0-0.012); Nucleated Red Blood Cells Perc 0.0 % (0.0-0.2); Platelet Count Result 180 k/mm3 (150-375); Red Blood Count 4.35 M/mm3 (4.2-5.4); White Blood Count 15.5 K/mm3 (4.5-10.0)
[2024-10-04 06:26] LABS: Anion Gap 6 mmol/L (4-12); Blood Urea Nitrogen 26 mg/dL (7-17); Calcium 8.5 mg/dL (8.4-10.2); Carbon Dioxide 26 mmol/L (22-30); Chloride 97 mmol/L (98-107); Estimated CRCL calculation 43 ml/min; Estimated Glomerular Filt Rate 59; Glucose 250 mg/dL (65-110); Potassium 4.4 mmol/L (3.4-5.0); Sodium 129 mmol/L (137-145)
[2024-10-04] MEDS: SENNA/DOCUSATE SODIUM TABLET 2 TAB PO (08:13)
[2024-10-04] MEDS: ASPIRIN 81 MG ENTERIC TABLET PO (08:13)
[2024-10-04] MEDS: SIMVASTATIN 20 MG TABLET 40 MG PO (08:14)
[2024-10-04 08:41] LABS: Magnesium 1.6 mg/dL (1.6-2.3)
[2024-10-04 09:53] VITALS: BP 108/53; PULSE 79; RESP 18; TEMP 36.9; O2SAT 98
--- NOTE | 2024-10-04 09:56 | P.CONIM_ITS ---
Assessment and Plan Assessment and plan (1) Type 2 diabetes mellitus without complications: Code(s): E11.9 - Type 2 diabetes mellitus without complications Status: Acute Assessment and Plan: * BG check TID AC and HS. * Hemoglobin A1c 7.1% on 08/14/24. * Currently not taking medications. * Decrease carbohydrates and monitor blood sugars. (2) Essential (primary) hypertension: Code(s): I10 - Essential (primary) hypertension Status: Acute Assessment and Plan: * Continue Lisinopril 10 mg PO daily and hydrochlorothiazide 25 mg p.o. daily. * Blood pressure 115/52, stable. (3) Mixed hyperlipidemia: Code(s): E78.2 - Mixed hyperlipidemia Status: Acute Assessment and Plan: * Continue Simvastatin 40 mg PO QHS. (4) Hypothyroidism: Code(s): E03.9 - Hypothyroidism, unspecified Status: Acute Assessment and Plan: * Currently not taking any medications per Dr. Herrmann primary note. * 09/18/24: TSH 0.268, Free T4 1.03. (5) S/P total right hip arthroplasty: Code(s): Z96.641 - Presence of right artificial hip joint Status: Acute Assessment and Plan: * Surgery done on 10/03/24. * Right hip dressing intact, no redness, swelling, or drainage. * Receiving IV antibiotics. * Pain regimen. * PT/OT. Plan Thank you for the consult, will follow along the hospital course. HPI Date of Consult Consult date: 10/04/24 Requesting Physician: Albert Martinez MD Primary Care Provider: Tyler Herrmann MD Consult Narrative Narrative: Kylah Espana is a 84 year old female with history of diabetes, hypertension, and hyperlipidemia. Hospitalist consulted for medical management, patient is status post right hip replacement. Pain in her right hip is a 4, frequent, and aching. Patient denies chest pain, palpitations, headache, nausea, or vomiting. Review of Systems 2 Review of Systems: All systems reviewed & are unremarkable except as noted in HPI and below Cardiovascular: Cardiovascular: Denies chest pain and Denies leg edema Respiratory: Respiratory: Denies chest congestion, Denies cough and Denies dyspnea Gastrointestinal: Gastrointestinal: Denies constipation, Denies heartburn, Denies diarrhea, Denies nausea and Denies vomiting Musculoskeletal: Comments: Right hip pain Neurologic: Denies numbness PMFSH Past Medical History Medical History Obesity Allergic reaction Urticaria Anxiety Essential (primary) hypertension Hypothyroidism MDD (major depressive disorder), recurrent episode Mixed hyperlipidemia Obstructive sleep apnea (adult) (pediatric) Type 2 diabetes mellitus without complications Surgical History Surgical History Status post right knee replacement (~07/28/22) History of total left knee replacement (~03/2022) History of meniscectomy of right knee (~2014) S/P adenoidectomy History of appendectomy Delivery by section H/O: hysterectomy (~1985) Family History Family History Mother Family history of cardiovascular disease Father Family history of lung cancer Daughter Cancer Other Carcinoma of colon Social History Social History Smoking status: Never smoker Second hand tobacco smoke exposure: No Additional smoking assessment comments: PT DENIES ALL FORMS OF TOBACCO USE Alcohol intake: never Substance use: never Substance use type: does not use Do You Feel Safe in your Home?: Yes Lack of Transportation: No Lack of Food: Never True Current Housing: I Have Housing Concerned About Future Housing: No Difficulty Paying Gas/Electric Bills: No Difficulty Paying for Meds: No Currently Unemployed: No Education: Decline to Answer Difficulty w/ Childcare or Family Care: Decline to Answer Living arrangements: with family Additional living arrangements comments: LIVES WITH DAUGHTER AC Occupation/Education: retired Gender identity (if verbalized by the patient): Female Sexual Orientation (if Verbalized by the Patient): Straight or Heterosexual Spiritual care concerns: No Meds Home Medications and Allergies Home Medications ?Medication ?Instructions ?Recorded ?Confirmed ?Type simvastatin 40 mg tablet 40 mg PO QAM #90 tabs 09/06/23 10/03/24 Rx hydrochlorothiazide 25 mg tablet 25 mg PO DAILY #90 tabs 10/18/23 10/03/24 Rx lisinopril 10 mg tablet 10 mg PO DAILY #90 tabs 10/18/23 10/03/24 Rx paroxetine HCl 10 mg tablet 10 mg PO DAILY #30 tabs 05/29/24 10/03/24 Rx tramadol 50 mg tablet 50 mg PO Q6H PRN pain #28 tabs 07/17/24 09/06/24 Rx biotin 1 mg capsule 1 mg PO DAILY 09/06/24 10/03/24 History aspirin 81 mg tablet,delayed 81 mg PO BID #28 tabs 10/04/24 Rx release (Enteric Coated Aspirin) oxycodone-acetaminophen 5 mg-325 1 - 2 tablet PO Q6H PRN pain #30 10/04/24 Rx mg tablet tabs Allergies Allergy/AdvReac Type Severity Reaction Status Date / Time No Known Allergies Allergy Verified 10/03/24 17:20 Vital Signs Vital Signs - 24 hr 10/03/24 10:40 10/03/24 15:31 10/03/24 15:45 Temperature 97.2 F L 97.2 F L Pulse Rate 64 95 81 Respiratory Rate 14 11 L 14 Blood Pressure 142/67 H 145/75 H 137/74 Pulse Oximetry 97 97 98 Oxygen Delivery Room Air Simple Face Mask Oxygen Flow Rate 6 10/03/24 16:00 10/03/24 16:15 10/03/24 16:30 Temperature Pulse Rate 84 84 85 Respiratory Rate 16 14 14 Blood Pressure 120/85 106/41 L 117/59 L Pulse Oximetry 92 97 96 Oxygen Delivery Room Air Nasal Cannula Nasal Cannula Oxygen Flow Rate 2 2 10/03/24 17:00 10/03/24 17:00 10/03/24 17:15 Temperature 97.1 F L 97.8 F Pulse Rate 87 85 Respiratory Rate 15 20 Blood Pressure 145/66 H 140/64 Pulse Oximetry 96 92 98 Oxygen Delivery Nasal Cannula Oxygen Flow Rate 2 10/03/24 17:45 10/03/24 18:45 10/03/24 20:00 Temperature 97.4 F L 97.4 F L Pulse Rate 96 96 Respiratory Rate 17 18 Blood Pressure 141/64 H 124/57 L Pulse Oximetry 97 95 Oxygen Delivery Room Air Oxygen Flow Rate 10/03/24 20:14 10/03/24 23:04 10/03/24 23:27 Temperature 97.4 F L 97.3 F L Pulse Rate 90 86 Respiratory Rate 18 18 Blood Pressure 123/58 L 118/56 L Pulse Oximetry 97 90 90 Oxygen Delivery Room Air Oxygen Flow Rate 10/04/24 03:15 07/23/25 08:42 10/04/24 09:53 Temperature 97.4 F L 98.4 F Pulse Rate 78 79 Respiratory Rate 18 18 Blood Pressure 115/52 L 108/53 L Pulse Oximetry 92 98 Oxygen Delivery Room Air Oxygen Flow Rate Exam 2 Const: General: no acute distress Eyes: Sclera: sclerae normal Resp: Effort & Inspection: normal respiratory effort Auscultation: clear to auscultation bilaterally Cardio: Rate: regular rate Rhythm: regular rhythm GI: Auscultation: normal bowel sounds Skin: Other: Right hip dressing intact, no redness, swelling, or drainage. Neuro: Speech: normal speech Extrem: General: no pedal edema Psych: Mental Status: mental status grossly normal Affect: normal affect Results Labs 10/04/24 05:24 10/04/24 05:24 Labs: Short CBC 10/04/24 Range/Units 05:24 WBC 15.5 H (4.5-10.0) K/mm3 Hgb 12.2 (12.0-15.0) g/dL Hct 37.5 (37.0-47.0) % Plt Count 180 (150-375) k/mm3 BMP 10/04/24 05:24 Sodium 129 L Potassium 4.4 Chloride 97 L Carbon Dioxide 26 BUN 26 H Creatinine 0.91 Glucose 250 H Calcium 8.5 Hospitalist MIPS Advance Care Plan I have confirmed that the patient's Advanced Care Plan is present, code status is documented, or surrogate decision maker is listed in patient medical record.: Yes Medication Reconciliation I have utilized all available resources to obtain, update and review the patients current medications (includes all prescriptions, OTC, herbals, cannabis, and nutritional supplements).: Yes
== END 2024-10-04 12:50 | disposition home or self-care (01) ==
LOC: ANHSURGERY 16:15 → ANH3MEDSUR 16:52
PROVIDERS: Nurse Practitioner Family; PCP Family Medicine; Visit Provider Orthopaedic Surgery
PROC: (CPT 27130; principal; 2024-10-03 13:00)
DX: M16.11 Unilateral primary osteoarthritis, right hip (principal); M25.751 Osteophyte, right hip; F41.9 Anxiety disorder, unspecified; I10 Essential (primary) hypertension; E03.9 Hypothyroidism, unspecified; E78.2 Mixed hyperlipidemia; E11.9 Type 2 diabetes mellitus without complications; G47.33 Obstructive sleep apnea (adult) (pediatric); F33.9 Major depressive disorder, recurrent, unspecified; E66.9 Obesity, unspecified; Z68.32 Body mass index [BMI] 32.0-32.9, adult; Z79.891 Long term (current) use of opiate analgesic; Z98.890 Other specified postprocedural states; Z80.0 Family history of malignant neoplasm of digestive organs; Z80.1 Family history of malignant neoplasm of trachea, bronchus and lung; Z82.49 Family history of ischemic heart disease and other diseases of the circulatory system
CPT/HCPCS: 27130; 36415; 80048; 82948; 83735; 85025; 86850; 86900; 86901; 97110; 97161; 97166; 99199; J0690; A9270; C1776; J0166; J0360; J1100; J1171; J1200; J1885; J2003; J2270; J2405; J2704; J2795; J3010; J7120; J7512

== ENCOUNTER 2024-11-21 08:54 | Outpatient (CLI) | payer MEDICARE, SELFPAY ==
--- OUTSIDE RECORDS SUMMARY | 2008-10-05 06:00 | XMS_ITS | Continuity of Care Document ---
Author Organization [facility] Address [address] [place] [address] Phone Care Team Providers Care Hydrodynamics Teacher Name Role Phone Aubrey Rodriguez Unavailable Unavailable Procedures Procedure Date Office/outpatient Visit, Est No Script Advance Directives Directive Yes / No Effective Date File Name No Information Encounters Encounter Description Practice Location Reason(s) For Visit Diagnoses Date Provider Providers Copied on Encounter Office/outpat ient Visit, Est [facility], [address], [place], [place], [address], [place] tel:[phone] SEC [facility] No Information [address] Jennifer Edward. [address] [facility] [place] , [address], [place], [address], [place]. tel:[phone] Referring Provider: Lou May, [place], [address]. tel:[phone] Family History Family Member Type Diagnosis Age At Onset No Information Payers Payer name Insurance type Covered libertarian ID Authoriza tion(s) Medicare [place] MB [id number] [place] Commercial BL [id number] Social History Type Description Quantity Date Captured [...]
[2024-11-21 09:30] LABS: Alanine Aminotransferase 19 U/L (6-35); Albumin Level 4.4 g/dL (3.5-5.1); Alkaline Phosphatase 78 U/L (38-126); Anion Gap 12 mmol/L (4-12); Aspartate Amino Transferase 25 U/L (14-36); Bilirubin,Total 0.9 mg/dL (0.2-1.3); Blood Urea Nitrogen 22 mg/dL (7-17); Calcium 9.7 mg/dL (8.4-10.2); Carbon Dioxide 27 mmol/L (22-30); Chloride 94 mmol/L (98-107); Estimated Glomerular Filt Rate > 60; Glucose 193 mg/dL (65-110); Potassium 3.9 mmol/L (3.4-5.0); Sodium 133 mmol/L (137-145); Total Protein 7.3 g/dL (6.3-8.2)
--- OUTSIDE RECORDS SUMMARY | 2024-11-21 09:33 | XMS_ITS | Clinical Summary ---
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
[2024-11-21 09:36] LABS: Hemoglobin A1C 7.4 % (<5.7)
== END 2024-11-21 08:55 | disposition home or self-care (01) ==
PROVIDERS: PCP Family Medicine; Visit Provider Family Medicine
DX: E11.9 Type 2 diabetes mellitus without complications (principal)
CPT/HCPCS: 36415; 80053; 83036

== ENCOUNTER 2025-01-10 13:12 | Outpatient (CLI) | payer MEDICARE, SELFPAY ==
--- OUTSIDE RECORDS SUMMARY | 2008-10-05 06:00 | XMS_ITS | Continuity of Care Document ---
Author Organization [facility] Address [address] [place] [address] Phone Care Team Providers Care Library Serials Assistant Name Role Phone Aubrey Rodriguez Unavailable Unavailable Procedures Procedure Date Office/outpatient Visit, Est No Script Advance Directives Directive Yes / No Effective Date File Name No Information Encounters Encounter Description Practice Location Reason(s) For Visit Diagnoses Date Provider Providers Copied on Encounter Office/outpat ient Visit, Est [facility], [address], [place], [place], [address], [place] tel:[phone] SEC [facility] No Information [address] Edward. [address] [facility] [place] , [address], [place], [address], [place]. tel:[phone] Referring Provider: Lou May, [place], [address]. tel:[phone] Family History Family Member Type Diagnosis Age At Onset No Information Payers Payer name Insurance type Covered libertarian ID Authoriza tion(s) Medicare [place] [id number] [place] Commercial BL [id number] Social History Type Description Quantity Date Captured [...]
--- OUTSIDE RECORDS SUMMARY | 2025-01-09 14:00 | XMS_ITS | Encounter Summary ---
Author Organization [facility] Address [address] [place] [address] Phone Care Team Providers Care Business Analysis Specialist Name Role Phone Tyler Herrmann MD Primary Care Provider Reason for Visit * Reason Comments Cerumen Impaction * Consultation (Routine) - Authorized Specialty Diagnoses / Procedures Referred By Ruslan lucio Referred To Contact Audiology Diagnoses Sensorineural hearing loss, asymmetrical Tyler Herrmann MD [address] [facility] [address] [place] [address] Phone: tel: fax: [facility] (All Locations) Referral ID Status Reason Start Date Expiration Date Visits Requested Visits Authorized [id number] Authorized Specialty Services Required 06/01/2024 07/01/2025 6 6 Encounter Details Date Type Department Care Team (Late st Contact Info) Description 01/09/2025 2:00 PM CDT Office Visit [facility]) - [facility] Medicine ENT [address] [facility] Medical Office Building [address] [place] [address] Praful Womack NP [address] [place] [address] Bilateral impacted cerumen (Primary Dx); Eczematoid otitis externa of both ears, unspecified chronicity; Ear itching Social History Tobacco Use Types Packs/Day Years Used Date Smoking Tobacco: Never Comments Unknown Sex and Gender Information Value Date Recorded Sex Assigned at Not on file 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 Gender Identity Not on file Sexual Orientation Not on file documented as of this encounter Last Filed Vital Signs Vital Sign Reading Time Taken Comments Blood Pressure - - Pulse - - Temperature - - Respiratory Rate - - Oxygen Saturation - - Inhaled Oxygen Concentration - - Weight 77.1 kg (170 lb) 01/09/2025 2:05 PM CDT Height - - Body Mass Index 28.29 07/18/2024 10:37 AM CDT documented in this encounter Patient Instructions * Patient Instructions* Praful Womack NP - 01/09/2025 2:00 PM CDT Prevention of Wax Build-Up: I discussed the management of cerumen impaction, which includes avoiding q-tips and manipulation ofthe ear canal. The patient may also try either a few drops mineral oil, sweet oil, olive oil or baby oil. Alternatively, the patient can fill the ear canal with hydrogen peroxide (diluted 50/50 with water) or Debrox 5 minutes before taking a shower and gently rinse the solution out. Typically this can be performed once a week at bedtime. If the tympanic membrane is not intact, then antibiotic drops or interval cleanings may be necessary. The patient was advised to call if the ear canal became painful, started draining, or hearing loss was noticed. Praful Womack MSN, NUCLEAR OFFICER, DIRECTOR OF RECREATION THERAPY-C Department of Otolaryngology - [facility] documented in this encounter Progress Notes * Praful Womack NP - 01/09/2025 2:00 PM CDT Chief Complaint: No chief complaint on file. Referred by: Tyler Herrmann, * HISTORY OF PRESENT ILLNESS: This is a 84 y.o. female who presents today for assessment of her ears.States that she has had muffled hearing since the first of the year. States that her ears itch all of the time for years. Denies otalgia, otorrhea, tinnitus, ear pressure, sensation of clogging, popping or crackling sensation. Tonsillectomy as a child. Previously seen in clinic by SHARIF Daniel for ear cleaning, last office visit was on 11/29/2023. Interval 01/09/2025: To the clinic today stating that she feels as if she is in a tunnel and havingto ask others to repeat themselves. Denies otalgia or otorrhea. Past Medical History: Diagnosis Date Anxiety Cataract Diabetes (HCC) HL (hearing loss) Thyroid condition Past Surgical History: Procedure Laterality Date SECTION HYSTERECTOMY Current Outpatient Medications: aspirin 81 mg enteric coated tablet, Take 1 tablet (81 mg total) by mouth daily (Patient not taking: Reported on 11/29/2023), Disp: , Rfl: biotin 2,500 mcg capsule, Take by mouth (Patient not taking: Reported on 11/29/2023), Disp: , Rfl: calcium carbonate (OS-ILENE) 650 mg calcium (1,625 mg) tablet, Take 1 tablet (1,625 mg total) by mouth daily (Patient not taking: Reported on 11/29/2023), Disp: , Rfl: CONTOUR NEXT METER misc, TEST QAM (Patient not taking: Reported on 11/29/2023), Disp: , Rfl: 0 diphenhydrAMINE 25 mg capsule, TAKE 2 CAPSULES BY MOUTH 3 TIMES A DAY NEEDED FOR ALLERGIC REACTION (Patient not taking: Reported on 11/29/2023), Disp: , Rfl: fluocinolone in oil (DermOtic) 0.01 % drops, Appy 4 drops to both ears once a day for one week thenas needed, Disp: 20 mL, Rfl: 3 green tea leaf extract capsule, Take by mouth (Patient not taking: Reported on 11/29/2023), Disp: , Rfl: hydroCHLOROthiazide (HYDRODIURIL) 25 mg tablet, 25 MG ORALLY DAILY, Disp: , Rfl: levothyroxine (SYNTHROID, LEVOTHROID) 50 mcg tablet, TK 1 T PO QD (Patient not taking: Reported on 11/29/2023), Disp: , Rfl: 1 lisinopriL (PRINIVIL,ZESTRIL) 20 mg tablet, Take 1 tablet (20 mg total) by mouth daily, Disp: , Rfl: magnesium gluconate 200 mg tablet, 1 tablet (200 mg total) (Patient not taking: Reported on 11/29/2023), Disp: , Rfl: metFORMIN XR (GLUCOPHAGE XR) 500 mg 24 hr tablet, TK 4 TS D WITH EVENING MEAL (Patient not taking: Reported on 11/29/2023), Disp: , Rfl: 0 methylPREDNISolone (MEDROL DOSEPACK) 4 mg Dosepack, TAKE 6 TABLETS ON DAY 1 DIRECTED ON PACKAGE AND DECREASE BY 1 TAB EACH DAY FOR A TOTAL OF 6 DAYS (Patient not taking: Reported on 11/29/2023), Disp: , Rfl: Microlet Lancet misc, USE TO CHECK BLOOD SUGAR ONCE DAILY. (Patient not taking: Reported on 11/29/2023), Disp: , Rfl: mometasone (ELOCON) 0.1 % cream, Apply to outer ear twice a day for two weeks for itching (Patient not taking: Reported on 11/29/2023), Disp: 15 g, Rfl: 3 multivitamin capsule, Take 1 capsule by mouth daily (Patient not taking: Reported on 11/29/2023), Disp: , Rfl: PARoxetine (PAXIL) 30 mg tablet, TK 1 T PO QD (Patient not taking: Reported on 11/29/2023), Disp: , Rfl: 2 potassium 99 mg tablet, Take by mouth (Patient not taking: Reported on 11/29/2023), Disp: , Rfl: simvastatin (ZOCOR) 40 mg tablet, TK 1 T PO D, Disp: , Rfl: 1 UNABLE TO FIND, Black Cohosh 40mcg 2 times a day (Patient not taking: Reported on 11/29/2023), Disp:, Rfl: vit D3-vit C-qlnqhnebe-ldyz [id number] ztmx-dsh-ka-mg tablet, Take by mouth (Patient not taking: Reported on 11/29/2023), Disp: , Rfl: Review of patient's allergies indicates: No Known Allergies Social History and Family History: reviewed in the EMR New patients fill out a 10-system review of systems survey that gets reviewed at their initial visit. Pertinent positives have been incorporated into the HPI. Physical Exam Vital Signs: There were no vitals taken for this visit. GENERAL: Pleasant female, sitting up in NAD, normal appearance and voice. RESPIRATION: Breathing comfortably, no stridor. CV: No clubbing/cyanosis/edema in hands, RRR. HEAD AND FACE: General Inspection reveals no lesions or masses. HEENT: EARS:Examination of the external ears was normal using visual inspection. If the otoscope was inadequate, the otology microscope was used for improved visualization for diagnostic purposes. Otoscopicor microscopic visualization was used for clear magnified visualization and three-dimensional imaging of the ear for detection of any observable pathology or pathologic anatomic configuration and charaterization of same. Right External auditory canal: patent with shedding, dry flaky skin after removal of impacted cerumen. Tympanic Membrane: intact Middle ear: aerated Left: External auditory canal: patent with shedding, dry flaky skin after removal of impacted cerumen. Tympanic Membrane: intact Middle ear: aerated EYES: EOM Intact, sclera anicteric, no conjunctival injection. NOSE: External inspection of nose reveals no lesions, no masses. No drainage or discharge. No bleeding. Hypertrophy of nasal turbinate's. No obvious obstruction, masses, infection or purulent drainage noted. ORAL CAVITY/OROPHARYNX: Lips and gums are normal. Oropharynx, including the mucosa of oral cavity, hard and soft palates, tongue, and posterior pharyngeal wall showed normal symmetry without lesion and normal hydration of mucosal surfaces. NECK: Normal symmetry and overall appearance as well as tracheal position; no masses. Thyroid glandshows no tenderness or masses. NEURO: Alert and oriented, face symmetric, facial sensation intact bilaterally. GAIT: Normal. PROCEDURE: Using binocular microscopy, visualization of the right external canal showed obstructing cerumen. The cerumen was removed using curette, suction, and alligator forcep. Once the ear canal was cleaned,the above exam was noted. Using binocular microscopy, visualization of the left external canal showed obstructing cerumen. The cerumen was removed using curette, suction, and alligator forcep. Once the ear canal was cleaned, the above exam was noted. DATA REVIEWED: N/A IMAGING: N/A ASSESSMENT & PLAN: 84 y/o female to the clinic with bilateral ear itching and impacted cerumen bilaterally s/p disimpaction in clinic today. We discussed the use of the dermotic oil more frequently. Follow-up in 6 months for ear cleaning. Praful Womack MSN, NUCLEAR OFFICER, DIRECTOR OF RECREATION THERAPY-C Department of Otolaryngology - [facility] E-Mail: [email or web address] There may be grammatical errors in this note due to use of voice recognition software. documented in this encounter Plan of Treatment Not on file documented as of this encounter Visit Diagnoses Diagnosis Bilateral impacted cerumen- Primary Impacted cerumen Eczematoid otitis externa of both ears, unspecified chronicity Ear itching documented in this encounter Care Teams Business Analysis Specialist Relationship Specialty Start Date End Date Tyler Herrmann MD [address] [place] [address] PCP - General 12/19/14 documented as of this encounter
--- OUTSIDE RECORDS SUMMARY | 2025-01-09 14:30 | XMS_ITS | Encounter Summary ---
Author Organization [facility] Address [address] [place] [address] Phone Care Team Providers Care Cuff Presser Name Role Phone Tyler Herrmann MD Primary Care Provider Reason for Visit * Consultation (Routine) - Authorized Specialty Diagnoses / Procedures Referred By Contac t Referred To Contact Audiology Diagnoses Sensorineural hearing loss, asymmetrical Tyler Herrmann MD [address] [facility] [address] [place] [address] Phone: tel: fax: [facility] (All Locations) Referral ID Status Reason Start Date Expiration Date Visits Requested Visits Authorized [id number] Authorized Specialty Services Required 06/01/2024 07/01/2025 6 6 Encounter Details Date Type Department Care Team (Late st Contact Info) Description 01/09/2025 2:30 PM CDT Procedure visit [facility] Medicine Otolaryngology [address] [facility] Medical Office Building [address] [place] [address] Raul Loco Au.D. 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 Gender Identity Not on file Sexual Orientation Not on file documented as of this encounter Plan of Treatment Not on file documented as of this encounter Procedures Procedure Name Priority Date/Time Associated Diagnosis Comments AUDBASE RESULTS 01/09/2025 3:06 PM CDT documented in this encounter Results * AudBase Results (01/09/2025 3:06 PM CDT) Provider Scanning AUDIOLOGY SERVICES ORDERABLES Final Result documented in this encounter Visit Diagnoses Not on filedocumented in this encounter Care Teams Cuff Presser Relationship Specialty Start Date End Date Tyler Herrmann MD [address] [facility] [address] [place] [address] PCP - General 12/19/14 documented as of this encounter
--- NOTE | ~2025-01-10 | NM_ITS ---
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 COMPARISON: None. TECHNIQUE: 0.371 mCi I-123 was administered orally. Scintigraphic images of the thyroid gland were obtained at 24 hours. Thyroid uptake was calculated by the technologist. FINDINGS: The thyroid uptake is 21% (normal 10-30%), with the right lobe measuring 13% uptake and the left 8%. There is hypoactivity in mid and inferior right thyroid lobe. IMPRESSION: 1. Normal 24-hour iodine uptake. 2. Hypoactivity in mid and inferior right thyroid lobe suggesting a hypoactive nodule or nodules. Consider thyroid ultrasound if clinically indicated given the patient's age. Reviewed, dictated and finalized at location E. IMPRESSION: 1. Normal 24-hour iodine uptake. 2. Hypoactivity in mid and inferior right thyroid lobe suggesting a hypoactive nodule or nodules. Consider thyroid ultrasound if clinically indicated given th e patient's age.
--- OUTSIDE RECORDS SUMMARY | 2025-01-10 14:35 | XMS_ITS | Clinical Summary ---
Author Organization [facility] Address [facility] [place] [address] Care Team Providers Care Hand Developer Name Role Phone Tyler Herrmann MD [...] total) by mouth daily Active vit D3-vit Q-oelodqwny-euf s [phone] muxt-rvn-sv-mg tablet Take by mouth Active biotin 2,500 [...] Encounters Date Type Department Care Team Description 01/09/2025 2:30 PM CDT Procedure visit [facility] Medicine Otolaryngology [address] [place] [address] [address] [place] [phone] Raul Loco Au.D. 01/09/2025 2:00 PM CDT Office Visit [facility]) - [facility] Medicine ENT [address] [place] [address] Office [address] [place] [phone] Josefina Womack NP Bilateral impacted cerumen (Primary Dx); Eczematoid otitis externa of both ears, unspecified chronicity; Ear itching 12/06/2024 Telephone [facility] Medicine Otolaryngology [address] [place] [phone] Kaylen Cage MS from Last 3 Months Surgical History Surgery Date Site/Laterality Comments HYSTERECTOMY SECTION Medical History Medical History Date Comments Anxiety Cataract Diabetes Thyroid condition HL (hearing loss) Family History Medical History Relation Name Comments Colon cancer Daughter Heart disease Mother Relation Name Status Comments Daughter Mother Social History Tobacco Use Types Packs/Day Years Used Date Smoking Tobacco: Never Comments Unknown Sex and Gender Information Value Date Recorded Sex Assigned at Not on file 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 Gender Identity Not on file Sexual Orientation Not on file Obstetrics History Last Filed Vital Signs Vital Sign Reading Time Taken Comments Blood Pressure - - Pulse - - Temperature - - Respiratory Rate - - Oxygen Saturation - - Inhaled Oxygen Concentration - - Weight 77.1 kg (170 lb) 01/09/2025 2:05 PM CDT Height 165.1 cm (5' 5) 07/18/2024 10:37 AM CDT Body Mass Index 28.29 07/18/2024 10:37 AM CDT Plan of Treatment [...] 2024 9, 01/13/2018, 01/06/2017, Additional history exists Procedures Procedure Name Priority Date/Time Associated Diagnosis Comments AUDBASE RESULTS 01/09/2025 3:06 PM CDT from Last 3 Months Results * AudBase Results (01/09/2025 3:06 PM CDT) Provider Scanning AUDIOLOGY SERVICES ORDERABLES Final Result from Last 3 Months Insurance MEDICARE COMMERCIAL GENERIC Care Teams Hand Developer Relationship Specialty Start Date End Date Tyler Herrmann MD [address] [facility] [address] [place] [address] PCP - General 12/19/14
== END 2025-01-10 13:13 | disposition home or self-care (01) ==
PROVIDERS: PCP Family Medicine; Visit Provider Family Medicine
DX: E05.90 Thyrotoxicosis, unspecified without thyrotoxic crisis or storm (principal)
CPT/HCPCS: 78014; A9516

== ENCOUNTER 2025-01-31 12:10 | Outpatient (CLI) | payer MEDICARE, SELFPAY ==
--- OUTSIDE RECORDS SUMMARY | 2008-10-05 05:00 | XMS_ITS | Continuity of Care Document ---
Author Organization [facility] Address [address] [place] [address] Phone Care Team Providers Care Addiction Professional Name Role Phone Aubrey Rodriguez Unavailable Unavailable Procedures Procedure Date Office/outpatient Visit, Est No Script Advance Directives Directive Yes / No Effective Date File Name No Information Encounters Encounter Description Practice Location Reason(s) For Visit Diagnoses Date Provider Providers Copied on Encounter Office/outpat ient Visit, Est [facility], [address], [place], [place], [address], [place] tel:[phone] SEC [facility] No Information [address] Jennifer Edward. [address] [place] , [address], [place], [address], [place]. tel:[phone] Referring Provider: Lou May, [place], [address]. tel:[phone] Family History Family Member Type Diagnosis Age At Onset No Information Payers Payer name Insurance type Covered libertarian ID Authoriza tion(s) Medicare [place] MB [id number] [place] Commercial [place] [id number] Social History Type Description Quantity Date Captured Comments Sex Female Smoking Status No Information Chief Complaint And Reason For Visit No Information Reason For Referral Reason For Referral No Information History Of Present Illness Encounter Date Complaint History Of Prese nt Illness No Information Functional Status Date Functional Assessmen t No Information Instructions Date Instruction Additional Infor mation No Information Assessments Type Assessment Date No Information Patient Care Teams Name Effective Dates (start - stop) Status Members No Information
--- OUTSIDE RECORDS SUMMARY | 2008-10-05 05:00 | XMS_ITS | Continuity of Care Document ---
Author Organization [facility] Address [address] [place] [address] Phone Care Team Providers Care Quality Cloth Tester Name Role Phone Aubrey Rodriguez Unavailable Unavailable Procedures Procedure Date Office/outpatient Visit, Est No Script Advance Directives Directive Yes / No Effective Date File Name No Information Encounters Encounter Description Practice Location Reason(s) For Visit Diagnoses Date Provider Providers Copied on Encounter Office/outpat ient Visit, Est [facility], [address], [place], [place], [address], [place] tel:[phone] SEC [facility] No Information [address] Jennifer Edward. [address] [facility] [place] , [address], [place], [address], [place]. tel:[phone] Referring Provider: Lou May, [place], [address]. tel:[phone] Family History Family Member Type Diagnosis Age At Onset No Information Payers Payer name Insurance type Covered alliance party ID Authoriza tion(s) [place] [id number] [place] [id number] Social History Type Description Quantity Date Captured [...]
--- OUTSIDE RECORDS SUMMARY | 2008-10-05 05:00 | XMS_ITS | Continuity of Care Document ---
Author Organization [facility] Address [address] [place] [address] Phone Care Team Providers Care Dowel Machine Operator Name Role Phone Aubrey Rodriguez Unavailable Unavailable Procedures Procedure Date Office/outpatient Visit, Est No Script Advance Directives Directive Yes / No Effective Date File Name No Information Encounters Encounter Description Practice Location Reason(s) For Visit Diagnoses Date Provider Providers Copied on Encounter Office/outpat ient Visit, Est [facility], [address], [place], [place], [address], [place] tel:[phone] SEC [facility] No Information [address] Jennifer Edward. [address] [facility] [place] , [address], [place], [address], [place]. tel:[phone] Referring Provider: Lou May, [place], [address]. tel:[phone] Family History Family Member Type Diagnosis Age At Onset No Information Payers Payer name Insurance type Covered democrat ID Authoriza tion(s) Medicare [place] MB [id number] [place] Commercial [place] [id number] Social History Type Description Quantity Date Captured [...]
--- OUTSIDE RECORDS SUMMARY | 2008-10-05 05:00 | XMS_ITS | Continuity of Care Document ---
Author Organization [facility] Address [address] [place] [address] Phone Care Team Providers Care Tile Mechanic Name Role Phone Aubrey Rodriguez Unavailable Unavailable Procedures Procedure Date Office/outpatient Visit, Est No Script Advance Directives Directive Yes / No Effective Date File Name No Information Encounters Encounter Description Practice Location Reason(s) For Visit Diagnoses Date Provider Providers Copied on Encounter Office/outpat ient Visit, Est [facility], [address], [place], [place], [address], [place] tel:[phone] SEC [facility] No Information [address] Edward. [address] [place] , [address], [place], [address], [place]. tel:[phone] Referring Provider: Lou May, [place], [address]. tel:[phone] Family History Family Member Type Diagnosis Age At Onset No Information Payers Payer name Insurance type Covered constitution party ID Authoriza tion(s) Medicare [place] MB [id number] [place] Commercial [place] [id number] Social History Type Description Quantity Date Captured [...]
--- OUTSIDE RECORDS SUMMARY | 2008-10-05 05:00 | XMS_ITS | Continuity of Care Document ---
Author Organization [facility] Address [address] [place] [address] Phone Care Team Providers Care Training Coordinator Name Role Phone Aubrey Rodriguez Unavailable Unavailable Procedures Procedure Date Office/outpatient Visit, Est No Script Advance Directives Directive Yes / No Effective Date File Name No Information Encounters Encounter Description Practice Location Reason(s) For Visit Diagnoses Date Provider Providers Copied on Encounter Office/outpat ient Visit, Est [facility], [address], [place], [place], [address], [place] tel:[phone] [facility] No Information [address] Jennifer Edward. [address] [place] , [address], [place], [address], [place]. tel:[phone] Referring Provider: Lou May, [place], [address]. tel:[phone] Family History Family Member Type Diagnosis Age At Onset No Information Payers Payer name Insurance type Covered republican ID Authoriza tion(s) [place] [id number] [place] Commercial [place] [id number] Social History Type Description Quantity Date Captured [...]
--- OUTSIDE RECORDS SUMMARY | 2008-10-05 05:00 | XMS_ITS | Continuity of Care Document ---
Author Organization [facility] Address [address] [place] [address] Phone Care Team Providers Care Stripper Soft Plastic Name Role Phone Aubrey Rodriguez Unavailable Unavailable Procedures Procedure Date Office/outpatient Visit, Est No Script Advance Directives Directive Yes / No Effective Date File Name No Information Encounters Encounter Description Practice Location Reason(s) For Visit Diagnoses Date Provider Providers Copied on Encounter Office/outpat ient Visit, Est [facility], [address], [place], [place], [address], [place] tel:[phone] SEC [facility] No Information [address] Jennifer Edward. [address] [place] , [address], [place], [address], [place]. tel:[phone] Referring Provider: Lou May, [place], [address]. tel:[phone] Family History Family Member Type Diagnosis Age At Onset No Information Payers Payer name Insurance type Covered democrat ID Authoriza tion(s) Medicare [place] MB [id number] BCBS [place] Commercial BL [id number] Social History Type Description Quantity Date Captured [...]
--- OUTSIDE RECORDS SUMMARY | 2008-10-05 05:00 | XMS_ITS | Continuity of Care Document ---
Author Organization [facility] Address [address] [place] [address] Phone Care Team Providers Care Fire Chief Deputy Name Role Phone Aubrey Rodriguez Unavailable Unavailable Procedures Procedure Date Office/outpatient Visit, Est No Script Advance Directives Directive Yes / No Effective Date File Name No Information Encounters Encounter Description Practice Location Reason(s) For Visit Diagnoses Date Provider Providers Copied on Encounter Office/outpat ient Visit, Est [facility], [address], [place], [place], [address], [place] tel:[phone] SEC [facility] No Information [address] Jennifer Edward. [address] [facility] [place] , [address], [place], [address], [place]. tel:[phone] Referring Provider: Lou May, [place], [address]. tel:[phone] Family History Family Member Type Diagnosis Age At Onset No Information Payers Payer name Insurance type Covered green party ID Authoriza tion(s) Medicare [place] MB [id number] [place] Commercial [place] [id number] Social History Type Description Quantity Date Captured [...]
--- OUTSIDE RECORDS SUMMARY | 2008-10-05 05:00 | XMS_ITS | Continuity of Care Document ---
Author Organization [facility] Address [address] [place] [address] Phone Care Team Providers Care Folding Machine Setter Name Role Phone Aubrey Rodriguez Unavailable Unavailable Procedures Procedure Date Office/outpatient Visit, Est No Script Advance Directives Directive Yes / No Effective Date File Name No Information Encounters Encounter Description Practice Location Reason(s) For Visit Diagnoses Date Provider Providers Copied on Encounter Office/outpat ient Visit, Est [facility], [address], [place], [place], [address], [place] tel:[phone] [facility] No Information [address] Jennifer Edward. [address] [facility] [place] , [address], [place], [address], [place]. tel:[phone] Referring Provider: Lou May, [place], [address]. tel:[phone] Family History Family Member Type Diagnosis Age At Onset No Information Payers Payer name Insurance type Covered libertarian ID Authoriza tion(s) Medicare [place] MB [id number] [place] Commercial [place] [id number] Social History Type Description Quantity Date Captured [...]
--- OUTSIDE RECORDS SUMMARY | 2008-10-05 05:00 | XMS_ITS | Continuity of Care Document ---
Author Organization [facility] Address [address] [place] [address] Phone Care Team Providers Care Leader Tier Name Role Phone Aubrey Rodriguez Unavailable Unavailable Procedures Procedure Date Office/outpatient Visit, Est No Script Advance Directives Directive Yes / No Effective Date File Name No Information Encounters Encounter Description Practice Location Reason(s) For Visit Diagnoses Date Provider Providers Copied on Encounter Office/outpat ient Visit, Est [facility], [address], [place], [place], [address], [place] tel:[phone] SEC [facility] No Information [address] Edward. [address] [facility] [place] , [address], [place], [address], [place]. tel:[phone] Referring Provider: Lou May, [place], [address]. tel:[phone] Family History Family Member Type Diagnosis Age At Onset No Information Payers Payer name Insurance type Covered constitution party ID Authoriza tion(s) [place] [id number] [place] Commercial [place] [id number] Social History Type Description Quantity Date Captured [...]
--- OUTSIDE RECORDS SUMMARY | 2008-10-05 05:00 | XMS_ITS | Continuity of Care Document ---
Author Organization [facility] Address [address] [place] [address] Phone Care Team Providers Care Front Desk Lead Name Role Phone Aubrey Rodriguez Unavailable Unavailable Procedures Procedure Date Office/outpatient Visit, Est No Script Advance Directives Directive Yes / No Effective Date File Name No Information Encounters Encounter Description Practice Location Reason(s) For Visit Diagnoses Date Provider Providers Copied on Encounter Office/outpat ient Visit, Est [facility], [address], [place], [place], [address], [place] tel:[phone] SEC [facility] No Information [address]. [address] [facility] [place] , [address], [place], [address], [place]. tel:[phone] Referring Provider: Lou May, [place], [address]. tel:[phone] Family History Family Member Type Diagnosis Age At Onset No Information Payers Payer name Insurance type Covered alliance party ID Authoriza tion(s) Medicare [place] MB [id number] [place] Commercial BL [id number] Social History Type Description Quantity Date Captured [...]
--- OUTSIDE RECORDS SUMMARY | 2008-10-05 05:00 | XMS_ITS | Continuity of Care Document ---
Author Organization [facility] Address [address] [place] [address] Phone Care Team Providers Care Flaking Roll Operator Name Role Phone Aubrey Rodriguez Unavailable Unavailable Procedures Procedure Date Office/outpatient Visit, Est No Script Advance Directives Directive Yes / No Effective Date File Name No Information Encounters Encounter Description Practice Location Reason(s) For Visit Diagnoses Date Provider Providers Copied on Encounter Office/outpat ient Visit, Est [facility], [address], [place], [place], [address], [place] tel:[phone] SEC [facility] No Information [address] Edward. [address] [place] , [address], [place], [address], [place]. tel:[phone] Referring Provider: Lou May, [place], [address]. tel:[phone] Family History Family Member Type Diagnosis Age At Onset No Information Payers Payer name Insurance type Covered republican ID Authoriza tion(s) Medicare [place] MB [id number] [place] Commercial BL [id number] Social History Type Description Quantity Date Captured [...]
--- OUTSIDE RECORDS SUMMARY | 2008-10-05 05:00 | XMS_ITS | Continuity of Care Document ---
Author Organization formerly [facility] Address [address] [place] [address] Phone Care Team Providers Care Stereoptician Name Role Phone Aubrey Rodriguez Unavailable Unavailable Procedures Procedure Date Office/outpatient Visit, Est No Script Advance Directives Directive Yes / No Effective Date File Name No Information Encounters Encounter Description Practice Location Reason(s) For Visit Diagnoses Date Provider Providers Copied on Encounter Office/outpat ient Visit, Est [facility], [address], [place], [place], [address], [place] tel:[phone] SEC [facility] No Information [address] Edward. [address] [facility] [place] , [address], [place], [address], [place]. tel:[phone] Referring Provider: Lou May, [place], [address]. tel:[phone] Family History Family Member Type Diagnosis Age At Onset No Information Payers Payer name Insurance type Covered green party ID Authoriza tion(s) Medicare [place] MB [id number] [place] Commercial BL [id number] Social History Type Description Quantity Date Captured [...]
--- OUTSIDE RECORDS SUMMARY | 2008-10-05 05:00 | XMS_ITS | Continuity of Care Document ---
Author Organization [facility] Address [address] [place] [address] Phone Care Team Providers Care Pug Mill Operator Helper Name Role Phone Aubrey Rodriguez Unavailable Unavailable Procedures Procedure Date Office/outpatient Visit, Est No Script Advance Directives Directive Yes / No Effective Date File Name No Information Encounters Encounter Description Practice Location Reason(s) For Visit Diagnoses Date Provider Providers Copied on Encounter Office/outpat ient Visit, Est [facility], [address], [place], [place], [address], [place] tel:[phone] SEC [facility] No Information [address] Edward. [address] [place] , [address], [place], [address], [place]. tel:[phone] Referring Provider: Lou May, [place], [address]. tel:[phone] Family History Family Member Type Diagnosis Age At Onset No Information Payers Payer name Insurance type Covered democrat ID Authoriza tion(s) Medicare [place] MB [id number] [place] Commercial BL [id number] Social History Type Description Quantity Date Captured [...]
--- NOTE | ~2025-01-31 | US_ITS ---
EXAMINATION: US thyroid DATE: 01/31/2025 12:49 INDICATION: Nodules TECHNIQUE: Multiple ultrasound images of the thyroid were obtained. COMPARISON: January 112024 thyroid scan FINDINGS: The right thyroid lobe measures 4.8 x 2.3 x 1.9 cm. The left thyroid lobe measures 4.1 x 1.0 x 0.9 A 3.3 x 2.2 x 1.7 cm smoothly marginated wider than tall, heterogeneous, solid mass in the mid to lower right lobe likely corresponds to area of concern on recent thyroid scan. A left-sided nodule measuring 6 x 6 and 4 mm with TR 3 characteristics There is normal echotexture and echogenicity throughout the thyroid gland. No discrete nodules identified. Normal vascular flow is present. IMPRESSION: 1. TR 3 mass in the right lobe of the thyroid. Correlate with FNA or follow-up surveillance thyroid ultrasound. 2. Subcentimeter 3 lesion in the left lobe too small to confidently sample with FNA. Continued surveillance recommended. Reviewed, dictated and finalized at location A. ER HARVESTER
--- OUTSIDE RECORDS SUMMARY | 2025-01-31 17:37 | XMS_ITS | Clinical Summary ---
Author Organization [facility] Address [facility] [place] [address] Care Team Providers Care Psychologist Name Role Phone Tyler Herrmann MD Primary [...] total) by mouth daily Active vit D3-vit Y-kcethpank-kos s [phone] ptzh-kbf-ku-mg tablet Take by mouth Active biotin 2,500 [...] Description 01/09/2025 2:30 PM CDT Procedure visit [facility] Medicine Otolaryngology [address] [place] [address] Office [address] [place] [phone] Raul Loco Au.D. 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
== END 2025-01-31 12:11 | disposition home or self-care (01) ==
PROVIDERS: PCP Family Medicine; Visit Provider Student in an Organized Health Care Education/Training Program
DX: R94.6 Abnormal results of thyroid function studies (principal)
CPT/HCPCS: 76536

== ENCOUNTER 2025-03-05 09:56 | Outpatient (CLI) | payer MEDICARE, SELFPAY ==
[2025-03-05 10:36] LABS: Hemoglobin A1C 7.7 % (<5.7)
[2025-03-05 10:55] LABS: Alanine Aminotransferase 18 U/L (6-35); Albumin Level 4.2 g/dL (3.5-5.1); Alkaline Phosphatase 49 U/L (38-126); Anion Gap 9 mmol/L (4-12); Aspartate Amino Transferase 30 U/L (14-36); Bilirubin,Total 0.7 mg/dL (0.2-1.3); Blood Urea Nitrogen 19 mg/dL (7-17); Calcium 8.8 mg/dL (8.4-10.2); Carbon Dioxide 26 mmol/L (22-30); Chloride 98 mmol/L (98-107); Estimated Glomerular Filt Rate > 60; Glucose 176 mg/dL (65-110); Potassium 4.2 mmol/L (3.4-5.0); Sodium 133 mmol/L (137-145); Total Protein 7.2 g/dL (6.3-8.2)
[2025-03-05 11:03] LABS: Free T4 Free Thyroxine 0.79 ng/dL (0.78-2.19)
--- OUTSIDE RECORDS SUMMARY | 2025-03-05 11:18 | XMS_ITS | Clinical Summary ---
Author Organization [facility] [place] [address] Care Team Providers Care Results Engineer Name Role Phone Tyler Herrmann MD Primary [...] total) by mouth daily Active vit D3-vit S-uhfgtfczi-fvs s [id number] qvyw-ubu-ld-mg tablet Take by mouth Active biotin 2,500 [...] Description 01/09/2025 2:30 PM CDT Procedure visit [facility] Medicine Otolaryngology [address] [place] [address] [address] [place] [phone] Raul Loco Au.D. Sensorineural hearing loss (SNHL) of both ears (Primary Dx) 01/09/2025 2:00 PM CDT Office Visit [facility]) - [facility] Medicine ENT [address] [place] [address] [address] [place] [phone] Josefina Womack NP Bilateral impacted cerumen (Primary Dx); Eczematoid otitis externa of both ears, unspecified chronicity; Ear itching 12/06/[address] 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
[2025-03-05 11:24] LABS: Thyroid Stimulating Hormone 0.374 uIU/mL (0.465-4.680)
== END 2025-03-05 09:57 | disposition home or self-care (01) ==
PROVIDERS: PCP Family Medicine; Visit Provider Student in an Organized Health Care Education/Training Program
DX: E05.90 Thyrotoxicosis, unspecified without thyrotoxic crisis or storm (principal); E11.9 Type 2 diabetes mellitus without complications; I10 Essential (primary) hypertension
CPT/HCPCS: 36415; 80053; 83036; 84439; 84443